=== PATIENT | female | born 1990 | race Caucasian/White ===

== ENCOUNTER 2016-05-22 16:41 | Emergency (ER) | payer OTHER ==
[2016-05-22 16:50] VITALS: TEMP 98; BMI 23.3
--- NOTE | 2016-05-22 17:12 | PDOC ---
History of Present Illness - General Chief Complaint: Pain, Acute Stated Complaint: ABD PAIN, 15 WKS Time Seen by Provider: 05/22/16 17:10 History Source: Patient Exam Limitations: No Limitations - History of Present Illness Initial Comments: 05/22/16 18:24 Chief complaint: Epigastric pain Patient is 25-year-old female who is with her second child who states she's had vomiting since the beginning of the but since 2:30 this morning she's had epigastric pain. Patient is only taking vitamins and has not had this problem previously, no fever. GENERAL/CONSTITUTIONAL: No fever, weakness. dizziness HEAD, EYES, EARS, NOSE AND THROAT: No change in vision. No ear pain or discharge. No sore throat. CARDIOVASCULAR: No chest pain RESPIRATORY: No shortness of breath or cough GASTROINTESTINAL: +pain, nausea, vomiting, no: diarrhea or constipation GENITOURINARY: No dysuria MUSCULOSKELETAL: No neck or back pain SKIN: No rash NEUROLOGIC: No headache, vertigo, loss of consciousness, or loss of sensation. GENERAL: The patient is awake, alert, and fully oriented, in no acute distress. HEAD: Normal with no signs of trauma. EYES: Pupils equal, round and reactive to light, sclera anicteric, conjunctiva clear. ENT: pharynx: no erythema, no exudate, uvula midline NECK: supple CHEST: clear, nontender, rr ABD: soft, + bowel sounds, minimal epigastric tenderness, no Garcia sign EXTREMITIES: Normal range of motion, no edema. NEUROLOGICAL: Normal speech, normal gait. SKIN: Warm, Dry Past History - Past Medical History Allergies/Adverse Reactions: Allergies Allergy/AdvReac Type Severity Reaction Status Date / Time No Known Allergies Allergy Verified 05/22/16 16:50 Other medical history: denies - Psycho/Social/Smoking Cessation Hx Suicidal Ideation: No Smoking History: Never smoked *Physical Exam - Vital Signs Last Vital Signs Temp Pulse Resp BP Pulse Ox 98.0 F 69 18 137/61 99 05/22/16 16:47 05/22/16 16:47 05/22/16 16:47 05/22/16 16:47 05/22/16 16:47 ED Treatment Course - LABORATORY CBC & Chemistry Diagram: 05/22/16 16:58 05/22/16 16:58 Medical Decision Making - Medical Decision Making Patient 15 weeks , who has had vomiting prior, with epigastric pain. Patient has not had this problem before not been to the hospital for this before we'll get basic labs, a limited ultrasound to look at the gallbladder and biliary, and we'll do a limited OB ultrasound and reassess. Patient found to have ketones and +1 glucose in the urine, waiting rest of labs , will hydrate and reassess, *DC/Admit/Observation/Transfer Diagnosis at time of Disposition: Epigastric pain Qualifiers: Weeks of gestation: 15 weeks Qualified Code(s): Z3A.15 - 15 weeks gestation of
[2016-05-22] MEDS ORDERED: RANITIDINE HCL 150 MG TABLET (FP) PO ONE (17:29)
[2016-05-22] MEDS ORDERED: MAG HYDROX/AL HYDROX/SIMETH 30 ML UNIT-DOSE CUP PO ONE (17:29)
[2016-05-22] MEDS ORDERED: MAG HYDROX/AL HYDROX/SIMETH 30 ML UNIT-DOSE CUP ONE (17:58)
[2016-05-22] MEDS ORDERED: RANITIDINE HCL 150 MG TABLET (FP) ONE (17:58)
[2016-05-22 18:10] LABS: BASOPHIL 0.1 % (0-2.0); MCH 31.3 pg (25.7-33.7); MCHC 35.1 g/dl (32.0-36.0); MEAN CELL VOLUME 89.3 fl (80-96); MEAN PLT VOLUME 8.1 fl (7.5-11.1); NEUTROPHILS 93.5 % (42.8-82.8); PLATELET COUNT 195 K/MM3 (134-434); RDW 15.6 % (11.6-15.6); WHITE BLOOD COUNT 13.5 K/mm3 (4.0-10.0)
[2016-05-22 18:11] LABS: URINE APPEARANCE CLEAR; URINE BILIRUBIN NEGATIVE (NEGATIVE); URINE BLOOD NEGATIVE (NEGATIVE); URINE COLOR DKYELLOW; URINE GLUCOSE (UA) 1+ (NEGATIVE); URINE KETONE 2+ (NEGATIVE); URINE LEUK ESTERASE NEGATIVE (NEGATIVE); URINE NITRITE NEGATIVE (NEGATIVE); URINE PROTEIN 2+ (NEGATIVE); URINE UROBILINOGEN NEGATIVE E.U./dl (0.2-1.0)
[2016-05-22 18:15] LABS: URINE BACTERIA RARE /hpf (NONE SEEN); URINE HYALINE CAST 1 /lpf; URINE MUCUS FEW; URINE RBC 1 /hpf (0-3); URINE WBC 3 /hpf (3-5)
[2016-05-22] MEDS ORDERED: SODIUM CHLORIDE 1,000 ML IV STA (18:25)
[2016-05-22 18:33] LABS: ALBUMIN 3.7 g/dl (3.4-5.0); ANION GAP 12 (8-16); BILIRUBIN,TOTAL 0.6 mg/dL (0.2-1.0); CALCIUM 8.7 mg/dL (8.5-10.1); CO2 24 mmol/L (21-32); CREATININE 0.5 mg/dL (0.55-1.02); GLUCOSE,RANDOM 132 mg/dL (74-106); SGOT/AST 12 U/L (15-37); SGPT/ALT 24 U/L (12-78); TOT PROT 7.5 g/dl (6.4-8.2)
[2016-05-22 18:34] LABS: ALK PHOS 60 U/L (45-117)
--- NOTE | 2016-05-22 19:26 | PDOC ---
*Physical Exam - Vital Signs Last Vital Signs Temp Pulse Resp BP Pulse Ox 98.0 F 69 18 137/61 99 05/22/16 16:47 05/22/16 16:47 05/22/16 16:47 05/22/16 16:47 05/22/16 16:47 <Rukhsana Miramontes - Last Filed: 05/22/16 20:38> - Vital Signs Last Vital Signs Temp Pulse Resp BP Pulse Ox 98.0 F 69 18 137/61 99 05/22/16 16:47 05/22/16 16:47 05/22/16 16:47 05/22/16 16:47 05/22/16 16:47 <Cherelle Trevino - Last Filed: 05/22/16 20:50> ED Treatment Course - LABORATORY CBC & Chemistry Diagram: 05/22/16 16:58 05/22/16 16:58 - ADDITIONAL ORDERS Additional order review: Laboratory Results 05/22/16 05/22/16 16:58 16:58 Sodium 138 Potassium 3.3 L Chloride 102 Carbon Dioxide 24 Anion Gap 12 BUN 6 L Creatinine 0.5 L Creat Clearance w eGFR > 60 Random Glucose 132 H Calcium 8.7 Total Bilirubin 0.6 AST 12 L ALT 24 Alkaline Phosphatase 60 Total Protein 7.5 Albumin 3.7 Lipase 112 Urine Color Dkyellow Urine Appearance Clear Urine pH 6.0 Ur Specific [place] 1.030 Urine Protein 2+ H Urine Glucose (UA) 1+ H Urine Ketones 2+ H Urine Blood Negative Urine Nitrite Negative Urine Bilirubin Negative Urine Urobilinogen Negative Ur Leukocyte Esterase Negative Urine RBC 1 Urine WBC 3 Ur Epithelial Cells Rare Urine Bacteria Rare Hyaline Casts 1 Urine Mucus Few 05/22/16 16:58 RBC 4.22 MCV 89.3 MCHC 35.1 RDW 15.6 MPV 8.1 Neutrophils % 93.5 H Lymphocytes % 3.5 L Monocytes % 2.9 L Eosinophils % 0.0 Basophils % 0.1 - RADIOLOGY Radiograph Interpretation: 05/22/16 20:38 EXAM: OB ultrasound was read by Timothy Becerra MD at 20:05 EST REASON FOR EXAM: Upper abdominal pain, FINDINGS: There is a single live intrauterine with estimated gestational age of 16 weeks and 1 day. position at this time is cephalic. There is a posterior/fundal placenta. There is no placenta previa. Amniotic fluid volume is within normal limits. cardiac activity is 142 beats per minute. The cervix is grossly closed. EXAM: Abdominal ultrasound limited was read by Timothy Becerra MD at 20:03 EST REASON FOR EXAM: Upper abdominal pain FINDINGS: Visualized hepatic parenchyma is homogeneous. There are multiple gallstones. Gallbladder wall is within normal limits in thickness. Common bile duct diameter within normal limits. Visualized pancreas is unremarkable. There is no hydronephrosis on the right. - Medications Given in the ED: ED Medications Discontinued Medications Generic Name Dose Route Start Last Admin Trade Name Freq PRN Reason Stop Dose Admin Al Hydroxide/Mg Hydroxide 30 ml 05/22/16 17:29 05/22/16 20:09 Mylanta Oral Suspension - PO 05/22/16 17:30 30 ml ONCE ONE Administration Sodium Chloride 1,000 mls @ 1,000 mls/hr 05/22/16 18:25 05/22/16 20:09 Normal Saline - IV 05/22/16 19:24 1,000 mls/hr ASDIR STA Administration Ranitidine HCl 300 mg 05/22/16 17:29 05/22/16 20:09 Zantac - PO 05/22/16 17:30 300 mg ONCE ONE Administration <Rukhsana Miramontes - Last Filed: 05/22/16 20:38> - LABORATORY CBC & Chemistry Diagram: 05/22/16 16:58 05/22/16 16:58 - ADDITIONAL ORDERS Additional order review: Laboratory Results 05/22/16 05/22/16 16:58 16:58 Sodium 138 Potassium 3.3 L Chloride 102 Carbon Dioxide 24 Anion Gap 12 BUN 6 L Creatinine 0.5 L Creat Clearance w eGFR > 60 Random Glucose 132 H Calcium 8.7 Total Bilirubin 0.6 AST 12 L ALT 24 Alkaline Phosphatase 60 Total Protein 7.5 Albumin 3.7 Lipase 112 Urine Color Dkyellow Urine Appearance Clear Urine pH 6.0 Ur Specific [place] 1.030 Urine Protein 2+ H Urine Glucose (UA) 1+ H Urine Ketones 2+ H Urine Blood Negative Urine Nitrite Negative Urine Bilirubin Negative Urine Urobilinogen Negative Ur Leukocyte Esterase Negative Urine RBC 1 Urine WBC 3 Ur Epithelial Cells Rare Urine Bacteria Rare Hyaline Casts 1 Urine Mucus Few 05/22/16 16:58 RBC 4.22 MCV 89.3 MCHC 35.1 RDW 15.6 MPV 8.1 Neutrophils % 93.5 H Lymphocytes % 3.5 L Monocytes % 2.9 L Eosinophils % 0.0 Basophils % 0.1 <CallahanKm Mcgarry - Last Filed: 05/22/16 20:50> Medical Decision Making - Medical Decision Making 05/22/16 19:26 Endorsed to me pending d/w with Dr. Valladares 05/22/16 20:31 Case was d/w Dr. Valladares. Patient can follow up in the clinic. Epigastic pain is improved and is tolerating po. US Abdomen (+) gallstones but normal GB, labs normal US fetus with nl HR will discharge with inst to follow up for routine appointment I discussed the physical exam findings, ancillary test results and final diagnoses with the patient. I answered all of the patient's questions. The patient was satisfied with the care received and felt comfortable with the discharge plan and treatment plan. The Patient agrees to follow up with the primary care physician within 24-72 hours. <Cherelle Trevino - Last Filed: 05/22/16 20:50> *DC/Admit/Observation/Transfer <Rukhsana Miramontes - Last Filed: 05/22/16 20:38> <Cherelle Trevino - Last Filed: 05/22/16 20:50> Diagnosis at time of Disposition: Epigastric abdominal pain Qualifiers: Weeks of gestation: 15 weeks Qualified Code(s): Z3A.15 - 15 weeks gestation of - Discharge Dispostion Disposition: HOME Condition at time of disposition: Stable - Referrals Referrals: Kiera Deng MD [Primary Care Provider] - - Patient Instructions Printed Discharge Instructions: DI for Heartburn Additional Instructions: Your Discharge Instructions: You must call primary care physician within 24 hours to arrange follow-up. Return to the Emergency Department with any new, persistent or worsening symptoms, for fever, chills, SOB, dizziness or any other concerning changes that may occur. please follow-up with you at your scheduled appointment to discuss your lab work. - Post Discharge Activity
[2016-05-22 21:17] VITALS: BP 123/75; PULSE 72
== END 2016-05-22 21:24 | disposition home or self-care (01) ==
LOC: JER 16:41
PROC: 3E0337Z Introduction of Electrolytic and Water Balance Substance into Peripheral Vein, Percutaneous Approach (ICD-10-PCS; principal; 2016-05-22)
DX: O99.612 Diseases of the digestive system complicating pregnancy, second trimester (principal); K80.80 Other cholelithiasis without obstruction; Z3A.16 16 weeks gestation of pregnancy
CPT/HCPCS: 36415; 76705-TC; 76801-TC; 80053; 81003; 81015; 83690; 85025; 96360; 99282-25

== ENCOUNTER 2016-10-09 10:00 | Inpatient (IN) | payer OTHER ==
[2016-10-09 11:32] LABS: SGOT/AST 17 U/L (15-37); SGPT/ALT 21 U/L (12-78); URIC ACID 4.4 mg/dL (2.6-7.2)
[2016-10-09 11:47] LABS: BASOPHIL 0.2 % (0-2.0); MCH 32.6 pg (25.7-33.7); MCHC 34.7 g/dl (32.0-36.0); MEAN CELL VOLUME 94.1 fl (80-96); MEAN PLT VOLUME 9.6 fl (7.5-11.1); NEUTROPHILS 83.1 % (42.8-82.8); PLATELET COUNT 140 K/MM3 (134-434); WHITE BLOOD COUNT 8.9 K/mm3 (4.0-10.0)
[2016-10-09 11:59] LABS: HIV 1 & 2 AB NEGATIVE; HIV 1 AGp24 NEGATIVE
[2016-10-09] MEDS ORDERED: MAGNESIUM 4GM/H20 - 100 ML IVPB ONE (13:00)
[2016-10-09] MEDS: ELECTROLYTE-148 SOLN 1,000 ML IV SCH ×2 (13:30→20:30)
[2016-10-09] MEDS: MAGNESIUM SULFATE 20GM/500ML - 500 ML IVPB SCH ×2 (13:30→14:00)
[2016-10-09 13:50] VITALS: BMI 38.0
[2016-10-09] MEDS ORDERED: CITRIC ACID/SODIUM CITRATE 30 ML UNIT-DOSE CUP PO ONE (14:00)
--- NOTE | 2016-10-09 14:12 | HP ---
Past Medical History - Admission Chief Complaint: Hypertension History of Present Illness: 25 yo @ 35.5 weeks gestation, EDC 11/08/16, admitted for repeat due to Pre-eclampsia. Patient was seen in clinic where 24 hr urine protein was found to be 4000. Repeat 24hr urine protein was 5000. Blood pressure remains elevated. She denies any headache nor epigastric pain. She received one course of steroid therapy for lung maturity. Last meal was at noon. History Source: Patient Limitations to Obtaining History: No Limitations - Past Medical History ...: 3 ...Para: 1 ...Term: 1 ...: 0 ...Spon : 0 ...Induced : 0 ...LMP: 01/29/16 ... Weeks Gestation by Dates: 36.3 ...EDC by Dates: 11/04/16 ...EDC by Sono: 11/08/16 - Past Surgical History Past Surgical History: Yes: Hx Myomectomy: No Hx Transabdominal Cerclage: No - Smoking History Smoking history: Never smoked Have you smoked in the past 12 months: No If you are a former smoker, when did you quit?: n - Alcohol/Substance Use Hx Alcohol Use: No - Social History Usual Living Arrangement: Yes: With Spouse History of Recent Travel: No Home Medications - Allergies Allergies/Adverse Reactions: Allergies Allergy/AdvReac Type Severity Reaction Status Date / Time No Known Allergies Allergy Verified 10/07/16 18:31 - Home Medications Home Medications: Ambulatory Orders Vit No.130/Iron/FA [ Vitamins] 1 each PO DAILY 10/07/16 Family Disease History - Family Disease History Family History: Unremarkable Review of Systems - Review of Systems Constitutional: reports: No Symptoms Eyes: reports: No Symptoms HENT: reports: No Symptoms Neck: reports: No Symptoms Respiratory: reports: No Symptoms Gastrointestinal: reports: No Symptoms Genitourinary: reports: No Symptoms Breasts: reports: No Symptoms Reported Musculoskeletal: reports: No Symptoms Integumentary: reports: No Symptoms Neurological: reports: No Symptoms Endocrine: reports: No Symptoms Hematology/Lymphatic: reports: No Symptoms Psychiatric: reports: No Symptoms Pain Intensity: 0 Physical Exam - Maternity Vital Signs: Vital Signs Temperature 98.1 F 10/09/16 13:32 Pulse Rate 62 10/09/16 13:32 Respiratory Rate 20 07/23/17 13:32 Blood Pressure 157/90 10/09/16 13:32 O2 Sat by Pulse Oximetry (%) Constitutional: Yes: Well Nourished HENT: Yes: Atraumatic Neck: Yes: Supple, Trachea Midline Cardiovascular: Yes: Regular Rate and Rhythm Lungs: Clear to auscultation - Abdominal Exam/OB Number of Fetuses: Single Presentation: Vertex - Vaginal Exam/OB Vaginal Bleediing: No Presentation: Vertex/Position Station: -3 - Physical Exam Deep Tendon Reflex Grade: Normal +2 ...Motor Strength: WNL Psychiatric: Yes: Alert, Oriented - Labs Lab Results: CBC, BMP 10/09/16 11:44 Assessment/Plan IUP @ 35 weeks Pre Eclampsia Admit to L&D Magnesium sulfate therapy Jones insert Pre op for repeat
[2016-10-09 14:25] LABS: INR 0.86 (0.82-1.09); PROTHROMBIN TIME (PATIENT) 9.4 SEC (9.98-11.88)
[2016-10-09 14:28] LABS: ACTIVATED PTT 23.6 SECONDS (26.9-34.4)
[2016-10-09 15:32] LABS: ALBUMIN 2.6 g/dl (3.4-5.0); ANION GAP 10 (8-16); BILIRUBIN,TOTAL 0.3 mg/dL (0.2-1.0); CALCIUM 8.4 mg/dL (8.5-10.1); CO2 23 mmol/L (21-32); CREATININE 0.5 mg/dL (0.55-1.02); GLUCOSE,RANDOM 99 mg/dL (74-106); TOT PROT 5.8 g/dl (6.4-8.2)
[2016-10-09 15:33] LABS: ALK PHOS 121 U/L (45-117)
[2016-10-09] MEDS ORDERED: IBUPROFEN 800 MG/8 ML IJ IVPB PRN (20:41)
[2016-10-09] MEDS ORDERED: ONDANSETRON 4 MG/2 ML VIAL IVPUSH PRN (20:42)
[2016-10-09] MEDS ORDERED: METHYLERGONOVINE MALEATE 0.2 MG/1 ML AMP IM PRN (22:19)
--- NOTE | 2016-10-09 22:25 | OP ---
Operative Note - Note: Operative Date: 10/09/16 Pre-Operative Diagnosis: Severe Pre Eclampsia / Previous Operation: Repeat Low Transverse Findings: Baby girl in ROT position Post-Operative Diagnosis: Same as Pre-op Surgeon: Kendra Drew Interventionist: Andrew Aldridge Anesthesia: Spinal Specimens Removed: Placenta Estimated Blood Loss (mls): 600 Operative Report Dictated: Yes
[2016-10-10] MEDS: OXYTOCIN 20 UNITS in 0.9% NS 1,000 ML IV SCH ×2 (06:45→22:42)
[2016-10-10 08:14] LABS: BASOPHIL 0.2 % (0-2.0); EOSINOPHIL 0.1 % (0-4.5); MEAN CELL VOLUME 94.2 fl (80-96); MEAN PLT VOLUME 8.9 fl (7.5-11.1); NEUTROPHILS 81.1 % (42.8-82.8); PLATELET COUNT 140 K/MM3 (134-434); RDW 13.7 % (11.6-15.6); WHITE BLOOD COUNT 9.5 K/mm3 (4.0-10.0)
--- NOTE | 2016-10-10 08:26 | PN ---
Progress Note (short form) - Note Progress Note: Post op day#1.S/P C Section under spinal anesthesia with duramorph uneventful.Patient stable and does not c/o.No any anesthesia related proble.Patient DC from the anesthesia care.
--- NOTE | 2016-10-10 09:25 | PN ---
Post Progress Note - Subjective Subjective: 25 yo Para 2, with Pre Eclampsia status post repeat , seen and evaluated. She denies any headache, blurry vision nor epigastric pain. Reflexes are intact. Blood pressures are normalized. Post Day: 1 Type of Delivery: Repeat C/S Vital Signs: Vital Signs Temperature 98.8 F 10/10/16 03:00 Pulse Rate 75 10/10/16 09:00 Respiratory Rate 18 10/10/16 09:00 Blood Pressure 136/87 10/10/16 09:00 O2 Sat by Pulse Oximetry (%) 98 10/10/16 08:41 Uterus: Yes: Fundus Firm Incision: Yes: Dressing dry and intact Abdomen/GI: Yes: Abdomen soft Lochia: Yes: Rubra Lochia, amount: Small Extremities: Yes: Calves non-tender Perineum: Yes: Intact Activity: Other (She's lying in bed) - Labs Labs: CBC WBC 9.5 K/mm3 (4.0-10.0) 10/10/16 06:00 RBC 3.65 M/mm3 (3.60-5.2) 10/10/16 06:00 Hgb 12.0 GM/dL (10.7-15.3) 10/10/16 06:00 Hct 34.4 % (32.4-45.2) 10/10/16 06:00 MCV 94.2 fl (80-96) 10/10/16 06:00 MCH 33.0 pg (25.7-33.7) 10/10/16 06:00 MCHC 35.0 g/dl (32.0-36.0) 10/10/16 06:00 RDW 13.7 % (11.6-15.6) 10/10/16 06:00 Plt Count 140 K/MM3 (134-434) 10/10/16 06:00 MPV 8.9 fl (7.5-11.1) 10/10/16 06:00 Neutrophils % 81.1 % (42.8-82.8) 10/10/16 06:00 Lymphocytes % 11.6 % (8-40) 10/10/16 06:00 Monocytes % 7.0 % (3.8-10.2) 10/10/16 06:00 Eosinophils % 0.1 % (0-4.5) D 10/10/16 06:00 Basophils % 0.2 % (0-2.0) 10/10/16 06:00 Retic Count 1.84 % (0.5-1.5) H 10/09/16 10:55 Problem List - Problems (1) Status post repeat low transverse section Code(s): Z98.891 - HISTORY OF UTERINE SCAR FROM PREVIOUS SURGERY (2) Pre-eclampsia affecting , antepartum Code(s): O14.90 - UNSPECIFIED PRE-ECLAMPSIA, UNSPECIFIED TRIMESTER Assessment/Plan Status post repeat Sever Pre Eclampsia Continue Magnesium sulfate Keep Jones catheter Clear liquid diet F/U Magnesium level
[2016-10-10] MEDS: MAGNESIUM SULFATE 20GM/500ML - 500 ML IVPB SCH (13:00)
[2016-10-10] MEDS ORDERED: DEXTROSE 5%-LACTATED RINGERS 1,000 ML IV SCH (14:15)
[2016-10-10] MEDS: LABETALOL HCL 200 MG TABLET (FP) PO SCH (21:10)
[2016-10-10] MEDS: DEXTROSE 5%-LACTATED RINGERS 1,000 ML IV SCH (21:10)
[2016-10-10] MEDS ORDERED: BISACODYL 10 MG SUPP.RECT RC PRN (22:19)
[2016-10-10] MEDS: ELECTROLYTE-148 SOLN 1,000 ML IV SCH (22:42)
[2016-10-10] MEDS: ACETAMINOPHEN 325 MG TABLET (FP) PO PRN (23:08)
[2016-10-10] MEDS: SIMETHICONE 80 MG TAB.CHEW (FP) PO PRN (23:08)
[2016-10-10] MEDS: oxyCODONE HCL 5 MG TABLET PO PRN (23:09)
[2016-10-11] MEDS: DEXTROSE 5%-LACTATED RINGERS 1,000 ML IV SCH (00:02)
[2016-10-11] MEDS: SIMETHICONE 80 MG TAB.CHEW (FP) PO PRN ×4 (06:10→21:15)
[2016-10-11] MEDS: oxyCODONE HCL 5 MG TABLET PO PRN ×4 (06:10→21:15)
[2016-10-11] MEDS: ACETAMINOPHEN 325 MG TABLET (FP) PO PRN ×4 (06:11→21:15)
--- NOTE | 2016-10-11 07:42 | PN ---
Post Progress Note - Subjective Subjective: pod#2 s/p cs for pre eclampsia, s/p mgso4 Post Day: 2 Type of Delivery: Repeat C/S Vital Signs: Vital Signs Temperature 98.1 F 10/11/16 06:00 Pulse Rate 68 10/11/16 06:00 Respiratory Rate 18 10/11/16 06:00 Blood Pressure 177/95 10/11/16 06:00 O2 Sat by Pulse Oximetry (%) 98 10/10/16 08:41 Breast Exam: Yes: Soft Uterus: Yes: Fundus Firm Incision: Yes: Dressing dry and intact Abdomen/GI: Yes: Abdomen soft Lochia: Yes: Rubra Lochia, amount: Small Extremities: Yes: Calves non-tender Perineum: Yes: Intact Activity: Ambulating - Labs Labs: CBC WBC 9.5 K/mm3 (4.0-10.0) 10/10/16 06:00 RBC 3.65 M/mm3 (3.60-5.2) 10/10/16 06:00 Hgb 12.0 GM/dL (10.7-15.3) 10/10/16 06:00 Hct 34.4 % (32.4-45.2) 10/10/16 06:00 MCV 94.2 fl (80-96) 10/10/16 06:00 MCH 33.0 pg (25.7-33.7) 10/10/16 06:00 MCHC 35.0 g/dl (32.0-36.0) 10/10/16 06:00 RDW 13.7 % (11.6-15.6) 10/10/16 06:00 Plt Count 140 K/MM3 (134-434) 10/10/16 06:00 MPV 8.9 fl (7.5-11.1) 10/10/16 06:00 Neutrophils % 81.1 % (42.8-82.8) 10/10/16 06:00 Lymphocytes % 11.6 % (8-40) 10/10/16 06:00 Monocytes % 7.0 % (3.8-10.2) 10/10/16 06:00 Eosinophils % 0.1 % (0-4.5) D 10/10/16 06:00 Basophils % 0.2 % (0-2.0) 10/10/16 06:00 Retic Count 1.84 % (0.5-1.5) H 10/09/16 10:55 Haptoglobin 68 mg/dL (34-200) 10/09/16 10:55 Assessment/Plan as above watch labs will continue labetaolol consider hospitalist consult
--- NOTE | 2016-10-11 07:43 | PN ---
Post Progress Note Type of Delivery: Repeat C/S Vital Signs: Vital Signs Temperature 98.1 F 10/11/16 06:00 Pulse Rate 68 10/11/16 06:00 Respiratory Rate 18 10/11/16 06:00 Blood Pressure 177/95 10/11/16 06:00 O2 Sat by Pulse Oximetry (%) 98 10/10/16 08:41 - Labs Labs: CBC WBC 9.5 K/mm3 (4.0-10.0) 10/10/16 06:00 RBC 3.65 M/mm3 (3.60-5.2) 10/10/16 06:00 Hgb 12.0 GM/dL (10.7-15.3) 10/10/16 06:00 Hct 34.4 % (32.4-45.2) 10/10/16 06:00 MCV 94.2 fl (80-96) 10/10/16 06:00 MCH 33.0 pg (25.7-33.7) 10/10/16 06:00 MCHC 35.0 g/dl (32.0-36.0) 10/10/16 06:00 RDW 13.7 % (11.6-15.6) 10/10/16 06:00 Plt Count 140 K/MM3 (134-434) 10/10/16 06:00 MPV 8.9 fl (7.5-11.1) 10/10/16 06:00 Neutrophils % 81.1 % (42.8-82.8) 10/10/16 06:00 Lymphocytes % 11.6 % (8-40) 10/10/16 06:00 Monocytes % 7.0 % (3.8-10.2) 10/10/16 06:00 Eosinophils % 0.1 % (0-4.5) D 10/10/16 06:00 Basophils % 0.2 % (0-2.0) 10/10/16 06:00 Retic Count 1.84 % (0.5-1.5) H 10/09/16 10:55 Haptoglobin 68 mg/dL (34-200) 10/09/16 10:55
[2016-10-11 07:52] LABS: MCH 33.4 pg (25.7-33.7); MEAN CELL VOLUME 95.4 fl (80-96); MEAN PLT VOLUME 8.9 fl (7.5-11.1); PLATELET COUNT 133 K/MM3 (134-434); WHITE BLOOD COUNT 6.8 K/mm3 (4.0-10.0)
[2016-10-11 08:00] LABS: SGOT/AST 23 U/L (15-37); SGPT/ALT 22 U/L (12-78); URIC ACID 3.7 mg/dL (2.6-7.2)
--- NOTE | 2016-10-11 08:58 | CONSULT ---
Consult Consult Specialty:: Medicine Referred by:: Blaine Reason for Consultation:: Post HTN - History of Present Illness Chief Complaint: Elevated BP History of Present Illness: This is a 25 year old female , POD #2 from pre eclampsia. She has never had an issue with blood pressure in the past, nor other medical problems. She has completed 24 hours of magnesium sulfate. Started on labetalol 200mg BID. Jones is removed and pt has had successful voids and is ambulating. I have been called to continue management of BP. Currently patient is ambulating, does not appear fluid overloaded, she denies sob, chest pain, visual disturbances, or head ache. - History Source History Provided By: Patient, Medical Record Limitations to Obtaining History: No Limitations - Past Surgical History Past Surgical History: Yes: - Alcohol/Substance Use Hx Alcohol Use: No - Smoking History Smoking history: Never smoked Have you smoked in the past 12 months: No If you are a former smoker, when did you quit?: n - Social History History of Recent Travel: No Home Medications - Allergies Allergies/Adverse Reactions: Allergies Allergy/AdvReac Type Severity Reaction Status Date / Time No Known Allergies Allergy Verified 10/07/16 18:31 - Home Medications Home Medications: Ambulatory Orders Vit No.130/Iron/FA [ Vitamins] 1 each PO DAILY 10/07/16 Review of Systems - Review of Systems Constitutional: reports: Lethargy Eyes: reports: No Symptoms HENT: reports: No Symptoms Neck: reports: No Symptoms Cardiovascular: reports: No Symptoms Respiratory: reports: No Symptoms Gastrointestinal: reports: No Symptoms Genitourinary: reports: Other (lochia) Musculoskeletal: reports: No Symptoms Integumentary: reports: Incision (lower abdomen) Neurological: reports: No Symptoms Endocrine: reports: No Symptoms Hematology/Lymphatic: reports: No Symptoms Psychiatric: reports: No Symptoms Physical Exam Vital Signs: Vital Signs Temperature 98.7 F 10/11/16 07:20 Pulse Rate 69 10/11/16 07:20 Respiratory Rate 18 10/11/16 07:20 Blood Pressure 149/95 10/11/16 07:20 O2 Sat by Pulse Oximetry (%) 98 10/10/16 08:41 Constitutional: Yes: No Distress, Calm Eyes: Yes: Conjunctiva Clear HENT: Yes: Atraumatic Neck: Yes: Supple Cardiovascular: Yes: Regular Rate and Rhythm, S1, S2 Respiratory: Yes: Regular, CTA Bilaterally Gastrointestinal: Yes: Normal Bowel Sounds, Tenderness (lower abd at incision site) Renal/: Yes: Other (lochia present) Extremities: Yes: WNL Edema: Yes Edema: LLE: Trace, RLE: Trace Integumentary: Yes: Incision Wound/Incision: Yes: Clean/Dry, Well Approximated, Jones Intact Neurological: Yes: Alert, Oriented, Cran Nerves II-XII Intact Psychiatric: Yes: Alert, Oriented Labs: CBC, BMP 10/11/16 06:00 Problem List - Problems (1) Pre-eclampsia affecting , antepartum Code(s): O14.90 - UNSPECIFIED PRE-ECLAMPSIA, UNSPECIFIED TRIMESTER (2) Status post repeat low transverse section Code(s): Z98.891 - HISTORY OF UTERINE SCAR FROM PREVIOUS SURGERY (3) Epigastric abdominal pain Code(s): R10.13 - EPIGASTRIC PAIN (4) Code(s): Z33.1 - STATE, INCIDENTAL Qualifiers: Weeks of gestation: 15 weeks Qualified Code(s): Z3A.15 - 15 weeks gestation of (5) hypertension Code(s): O16.5 - UNSPECIFIED MATERNAL HYPERTENSION, COMP THE PUERPERIUM Assessment/Plan Assessment: 25 year old female with post HTN Plan: 1. Post HTN - Likely due to pre eclampsia - Repeat UA - Check CMP, CBC - Change labetalol to 200mg q6hr prn for BP >140/90 - Monitor bp q6hr - Will follow Thank you for this consult JONATHON Friedman Visit type - Emergency Visit Emergency Visit: No - New Patient This patient is new to me today: Yes Date on this admission: 10/11/16 - Critical Care Critical Care patient: No
[2016-10-11 09:00] LABS: ANION GAP 6 (8-16); CALCIUM 7.6 mg/dL (8.5-10.1); CO2 28 mmol/L (21-32); CREATININE 0.4 mg/dL (0.55-1.02); GLUCOSE,RANDOM 89 mg/dL (74-106)
[2016-10-11] MEDS: LABETALOL HCL 200 MG TABLET (FP) PO SCH (09:02)
--- NOTE | 2016-10-11 09:10 | OP ---
DATE OF OPERATION: 10/09/2016 PREOPERATIVE DIAGNOSIS: Intrauterine at 35 weeks with severe preeclampsia. POSTOPERATIVE DIAGNOSIS: Intrauterine at 35 weeks with severe preeclampsia. PROCEDURE: Repeat low transverse section. SURGEON: Kendra Drew MD BUSINESS CONTINUITY COORDINATOR: BENOIT Guillen ANESTHESIA: Spinal. COMPLICATIONS: None. ESTIMATED BLOOD LOSS: 600 mL DESCRIPTION OF PROCEDURE: Patient was taken to the operating room where spinal anesthesia was administered. Patient was then prepped and draped in proper sterile fashion. A Pfannenstiel skin incision was made and carried down to the underlying layer of fascia. The fascia was incised in the midline and extended laterally. The superior aspect of the fascial incision was then grasped with a Raz clamp, elevated, and the rectus muscle dissected out bluntly. Attention was then turned to the inferior aspect of the fascial incision, which in a similar fashion, was then grasped with a Raz clamp, elevated, and the rectus muscle dissected out bluntly. The rectus muscle was then in the midline. The peritoneum identified and entered sharply with the Metzenbaum scissors. Then, this incision was extended superiorly and inferiorly with good visualization of the bladder. Then, the vesicouterine peritoneum was then grasped with a pickup and entered sharply with the Metzenbaum scissors. This incision was extended laterally, and a bladder flap created digitally. The lower uterine segment was then incised using a 10-blade , and the fetus was then delivered atraumatically. Nose and mouth were suctioned, and the cord clamped and cut. The infant was handed to the waiting casting operator. The placenta was then removed manually. The uterus exteriorized and cleared of all clots and debris. The uterine incision was then repaired using 0 Biosyn in a running locked fashion. A second layer of the same suture was used as a means to provide excellent hemostasis. The uterus was then returned to the abdomen. The peritoneum was closed using 2-0 Biosyn. The fascia was reapproximated using 0 Vicryl, and the skin was closed with ольга. Patient tolerated procedure well. Patient was then taken to PACU in stable condition. PATHOLOGY: Placenta. Christ BYRD/[id number] [facility]
[2016-10-11] MEDS ORDERED: DIPHTH,PERTUSS(ACELL),TET 0.5 ML DISP.SYRIN IM ONE (10:00)
[2016-10-11 10:59] LABS: URINE APPEARANCE CLEAR; URINE BILIRUBIN NEGATIVE (NEGATIVE); URINE BLOOD 3+ (NEGATIVE); URINE COLOR LTYELLOW; URINE GLUCOSE (UA) NEGATIVE (NEGATIVE); URINE KETONE NEGATIVE (NEGATIVE); URINE LEUK ESTERASE NEGATIVE (NEGATIVE); URINE NITRITE NEGATIVE (NEGATIVE); URINE UROBILINOGEN NEGATIVE mg/dL (0.2-1.0)
[2016-10-11 11:16] LABS: URINE PROTEIN 2+ (NEGATIVE)
[2016-10-11 12:24] LABS: URINE BACTERIA RARE /hpf (NONE SEEN); URINE MUCUS RARE; URINE RBC 308 /hpf (0-3)
--- NOTE | 2016-10-11 13:41 | PATH ---
Surgical Pathology Report Patient Name: HAIM WINN Med. Rec. #: [id number] /Age/Gender: 1990 (Age: 25) / F Account: [id number] Location: [facility] OBS/ORDER ANALYST Taken: 10/09/2016 Received: 10/10/2016 Reported: 10/11/2016 Physicians: Kendra Drew M.D. Specimen(s) Received PLACENTA Clinical History Preeclampsia, c/section 2007 Final Diagnosis PLACENTA, DELIVERY: FOCALLY DISRUPTED, SMALL (>400 GM), THIRD TRIMESTER PLACENTA WITH MILD PREVILLOUS, PERIVILLOUS, AND PRECHORIONIC FIBRIN DEPOSITION, FOCAL CALCIFICATIONS, THREE VESSEL UMBILICAL CORD, AND UNREMARKABLE PLACENTAL MEMBRANES. Electronically Signed Scott Vizcarra M.D. Gross Description The specimen is received fresh, labeled "placenta" and is a 360 gram, 14 x 12.5 x 3 cm placenta with attached umbilical cord a small portion of membranes. The attached membranes are barajas, focally opaque and insert marginally. The umbilical cord measures 51 cm in length and averages 0.8 cm in diameter. The cord inserts eccentrically, 3.0 cm to the nearest margin. No true knots or strictures identified. Cut surface of the umbilical cord reveals 3 vessels. The surface is rodas-blue with fibrin deposition and appropriate caliber vessels. The maternal surface is red-brown with focal defects. Sectioning reveals red-brown, spongy parenchyma. No focal lesions are identified. Cut To Length Operator sections are submitted in three cassettes as follows: 1- membrane rolls and umbilical cord; 2-3- full thickness sections of placenta. AF/10/10/2016 final/10/10/2016
[2016-10-11] MEDS: LABETALOL HCL 200 MG TABLET (FP) PO PRN ×2 (15:02→21:15)
[2016-10-12] MEDS: SIMETHICONE 80 MG TAB.CHEW (FP) PO PRN ×3 (03:10→15:23)
[2016-10-12] MEDS: LABETALOL HCL 200 MG TABLET (FP) PO PRN ×4 (03:10→21:13)
[2016-10-12] MEDS: ACETAMINOPHEN 325 MG TABLET (FP) PO PRN ×4 (03:10→21:12)
[2016-10-12] MEDS: oxyCODONE HCL 5 MG TABLET PO PRN ×4 (03:10→21:13)
[2016-10-12 07:36] LABS: BASOPHIL 0.1 % (0-2.0); EOSINOPHIL 0.5 % (0-4.5); MCH 33.3 pg (25.7-33.7); MCHC 34.8 g/dl (32.0-36.0); MEAN CELL VOLUME 95.6 fl (80-96); MEAN PLT VOLUME 8.4 fl (7.5-11.1); NEUTROPHILS 78.1 % (42.8-82.8); PLATELET COUNT 154 K/MM3 (134-434); RDW 13.9 % (11.6-15.6); WHITE BLOOD COUNT 7.5 K/mm3 (4.0-10.0)
[2016-10-12 07:56] LABS: ALBUMIN 2.5 g/dl (3.4-5.0); ANION GAP 8 (8-16); CALCIUM 8.2 mg/dL (8.5-10.1); CO2 27 mmol/L (21-32); GLUCOSE,RANDOM 78 mg/dL (74-106)
[2016-10-12 08:00] LABS: ALK PHOS 104 U/L (45-117); BILIRUBIN,TOTAL 0.3 mg/dL (0.2-1.0); CREATININE 0.4 mg/dL (0.55-1.02); SGOT/AST 27 U/L (15-37); SGPT/ALT 26 U/L (12-78); TOT PROT 5.7 g/dl (6.4-8.2)
--- NOTE | 2016-10-12 10:46 | PN ---
Progress Note (short form) - Note Progress Note: no headache, no blurred vision. pod 3, pih CBC, BMP 10/12/16 06:10 10/12/16 06:10 Last Vital Signs Temp Pulse Resp BP Pulse Ox 98.3 F 74 18 154/96 98 10/12/16 09:00 10/12/16 09:00 10/12/16 09:00 10/12/16 09:00 10/10/16 08:41 abdomen soft, no distension, no cva, no RUQ tensderness no calf tenderness, DTR normal trace edema lochia mild plan monitor bp, cont, Labatalol medical follow up
--- NOTE | 2016-10-12 13:28 | PN ---
Physical Exam: SUBJECTIVE: Patient seen and examined she is oob to chair, she has no complaints and is feeling better today. OBJECTIVE: Vital Signs Period Temp Pulse Resp BP Sys/Boykin Pulse Ox Last 24 Hr 97.7 F-98.3 F 67-81 18-18 143-156/89-96 PE Neuro: alert, awake, cn 2-12intact Pulm: CTAB CV: s1 s2 rrr no mrg Abd: lower abd transverse incision with ольга cdi : mild lochia Ext: no le edema, calf tenderness Laboratory Results - last 24 hr 10/11/16 10/11/16 10/12/16 06:00 10:15 06:10 WBC 7.5 RBC 3.32 L Hgb 11.0 Hct 31.7 L MCV 95.6 MCH 33.3 MCHC 34.8 RDW 13.9 Plt Count 154 MPV 8.4 Neutrophils % 78.1 Lymphocytes % 15.0 D Monocytes % 6.3 Eosinophils % 0.5 D Basophils % 0.1 Haptoglobin 94 Sodium Potassium Chloride Carbon Dioxide Anion Gap BUN Creatinine Creat Clearance w eGFR Random Glucose Calcium Total Bilirubin AST ALT Alkaline Phosphatase Total Protein Albumin Urine Color Ltyellow Urine Appearance Clear Urine pH 7.0 Ur Specific [place] 1.020 Urine Protein 2+ H Urine Glucose (UA) Negative Urine Ketones Negative Urine Blood 3+ H Urine Nitrite Negative Urine Bilirubin Negative Urine Urobilinogen Negative Ur Leukocyte Esterase Negative Urine RBC 308 Urine WBC None Ur Epithelial Cells Rare Urine Bacteria Rare Urine Mucus Rare 10/12/16 06:10 WBC RBC Hgb Hct MCV MCH MCHC RDW Plt Count MPV Neutrophils % Lymphocytes % Monocytes % Eosinophils % Basophils % Haptoglobin Sodium 141 Potassium 3.9 Chloride 106 Carbon Dioxide 27 Anion Gap 8 BUN 5 L D Creatinine 0.4 L Creat Clearance w eGFR > 60 Random Glucose 78 Calcium 8.2 L Total Bilirubin 0.3 AST 27 ALT 26 Alkaline Phosphatase 104 Total Protein 5.7 L Albumin 2.5 L Urine Color Urine Appearance Urine pH Ur Specific [place] Urine Protein Urine Glucose (UA) Urine Ketones Urine Blood Urine Nitrite Urine Bilirubin Urine Urobilinogen Ur Leukocyte Esterase Urine RBC Urine WBC Ur Epithelial Cells Urine Bacteria Urine Mucus Active Medications Generic Name Dose Route Start Last Admin Trade Name Freq PRN Reason Stop Dose Admin Acetaminophen 650 mg 10/10/16 09:27 10/12/16 09:15 Tylenol - PO 650 mg Q4H PRN Administration FEVER OR PAIN Bisacodyl 10 mg 10/10/16 22:19 Dulcolax Suppository - RC PRN PRN CONSTIPATION Labetalol HCl 300 mg 10/12/16 11:06 Normodyne - PO Q6H PRN HYPERTENSION Methylergonovine Maleate 0.2 mg 10/09/16 22:19 Methergine Injection - IM Q4H PRN Excessive Bleeding (L&D) Oxycodone HCl 5 mg 10/09/16 22:19 10/12/16 09:14 Roxicodone - PO 5 mg Q4H PRN Administration PAIN LEVEL 1-5 Simethicone 80 mg 10/09/16 22:19 10/12/16 09:14 Mylicon - PO 80 mg Q4H PRN Administration GAS Assessment: 25 year old female with post HTN Plan: 1. Post HTN - Likely due to pre eclampsia - UA with +2 proteinuria - LFT's, plts stable - Increase labetalol to 300mg q6hr prn for BP >140/90 - Monitor bp q6hr - d/w RN will need to make PCP appt with pt at clinic to follow BP for weeks ahead Problem List - Problems (1) Pre-eclampsia affecting , antepartum Code(s): O14.90 - UNSPECIFIED PRE-ECLAMPSIA, UNSPECIFIED TRIMESTER (2) Status post repeat low transverse section Code(s): Z98.891 - HISTORY OF UTERINE SCAR FROM PREVIOUS SURGERY (3) Epigastric abdominal pain Code(s): R10.13 - EPIGASTRIC PAIN (4) Code(s): Z33.1 - STATE, INCIDENTAL Qualifiers: Weeks of gestation: 15 weeks Qualified Code(s): Z3A.15 - 15 weeks gestation of (5) hypertension Code(s): O16.5 - UNSPECIFIED MATERNAL HYPERTENSION, COMP THE PUERPERIUM Visit type - Emergency Visit Emergency Visit: Yes ED Registration Date: 10/09/16 Care time: The patient presented to the Emergency Department on the above date and was hospitalized for further evaluation of their emergent condition. - New Patient This patient is new to me today: No - Critical Care Critical Care patient: No
[2016-10-13] MEDS: LABETALOL HCL 200 MG TABLET (FP) PO PRN (03:03)
--- NOTE | 2016-10-13 09:29 | PN ---
Post Progress Note - Subjective Subjective: 25 yo Para 2 status post repeat due to severe Pre Eclampsia, seen and evaluated. She denies any headache, blurry vision nor epigastric pain. Blood pressure continues to be elevated despite Labetalol. Post Day: 4 Type of Delivery: Repeat C/S Vital Signs: Vital Signs Temperature 98.7 F 10/13/16 09:00 Pulse Rate 74 10/13/16 09:00 Respiratory Rate 20 10/13/16 09:00 Blood Pressure 156/98 10/13/16 09:00 O2 Sat by Pulse Oximetry (%) 98 10/10/16 08:41 Breast Exam: Yes: Soft Uterus: Yes: Fundus Firm Incision: Yes: [place] intact Abdomen/GI: Yes: Abdomen soft, Tolerating PO Lochia: Yes: Rubra Lochia, amount: Small Extremities: Yes: Calves non-tender Perineum: Yes: Intact Activity: Ambulating - Labs Labs: CBC WBC 7.5 K/mm3 (4.0-10.0) 10/12/16 06:10 RBC 3.32 M/mm3 (3.60-5.2) L 10/12/16 06:10 Hgb 11.0 GM/dL (10.7-15.3) 10/12/16 06:10 Hct 31.7 % (32.4-45.2) L 10/12/16 06:10 MCV 95.6 fl (80-96) 10/12/16 06:10 MCH 33.3 pg (25.7-33.7) 10/12/16 06:10 MCHC 34.8 g/dl (32.0-36.0) 10/12/16 06:10 RDW 13.9 % (11.6-15.6) 10/12/16 06:10 Plt Count 154 K/MM3 (134-434) 10/12/16 06:10 MPV 8.4 fl (7.5-11.1) 10/12/16 06:10 Neutrophils % 78.1 % (42.8-82.8) 10/12/16 06:10 Lymphocytes % 15.0 % (8-40) D 10/12/16 06:10 Monocytes % 6.3 % (3.8-10.2) 10/12/16 06:10 Eosinophils % 0.5 % (0-4.5) D 10/12/16 06:10 Basophils % 0.1 % (0-2.0) 10/12/16 06:10 Retic Count 2.17 % (0.5-1.5) H D 10/11/16 06:00 Haptoglobin 94 mg/dL (34-200) 10/11/16 06:00 Problem List - Problems (1) Status post repeat low transverse section Code(s): Z98.891 - HISTORY OF UTERINE SCAR FROM PREVIOUS SURGERY (2) Pre-eclampsia affecting , antepartum Code(s): O14.90 - UNSPECIFIED PRE-ECLAMPSIA, UNSPECIFIED TRIMESTER Assessment/Plan Status post repeat Sever Pre Eclampsia Nephrology consult Continue antihypertensive
--- NOTE | 2016-10-13 09:42 | PN ---
Physical Exam: SUBJECTIVE: Patient seen and examined she is oob breast pumping. She has no new complaints. Events: - BP rising peak 170-109 3am OBJECTIVE: Vital Signs Period Temp Pulse Resp BP Sys/Boykin Pulse Ox Last 24 Hr 98.1 F-98.7 F 70-76 18-20 140-175/93-109 PE Neuro: alert, awake, cn 2-12intact Pulm: CTAB CV: s1 s2 rrr no mrg Abd: lower abd transverse incision with ольга cdi Ext: no le edema, calf tenderness Active Medications Generic Name Dose Route Start Last Admin Trade Name Freq PRN Reason Stop Dose Admin Acetaminophen 650 mg 10/10/16 09:27 10/12/16 21:12 Tylenol - PO 650 mg Q4H PRN Administration FEVER OR PAIN Bisacodyl 10 mg 10/10/16 22:19 Dulcolax Suppository - RC PRN PRN CONSTIPATION Labetalol HCl 300 mg 10/12/16 11:06 10/13/16 03:03 Normodyne - PO 300 mg Q6H PRN Administration HYPERTENSION Methylergonovine Maleate 0.2 mg 10/09/16 22:19 Methergine Injection - IM Q4H PRN Excessive Bleeding (L&D) Nifedipine 30 mg 10/13/16 10:00 10/13/16 09:07 Procardia Xl - PO 30 mg DAILY ERVIN Administration Oxycodone HCl 5 mg 10/09/16 22:19 10/12/16 21:13 Roxicodone - PO 5 mg Q4H PRN Administration PAIN LEVEL 1-5 Simethicone 80 mg 10/09/16 22:19 10/12/16 15:23 Mylicon - PO 80 mg Q4H PRN Administration GAS Assessment: 25 year old female with post HTN Plan: 1. Post HTN - Likely due to pre severe eclampsia - Give procardia 30mg x1 now - Continue labetalol to 300mg q6hr prn for BP >140/90 - Monitor bp q6hr - D/w Dr. Tay, he will see Problem List - Problems (1) Pre-eclampsia affecting , antepartum Code(s): O14.90 - UNSPECIFIED PRE-ECLAMPSIA, UNSPECIFIED TRIMESTER (2) Status post repeat low transverse section Code(s): Z98.891 - HISTORY OF UTERINE SCAR FROM PREVIOUS SURGERY (3) Epigastric abdominal pain Code(s): R10.13 - EPIGASTRIC PAIN (4) Code(s): Z33.1 - STATE, INCIDENTAL Qualifiers: Weeks of gestation: 15 weeks Qualified Code(s): Z3A.15 - 15 weeks gestation of (5) hypertension Code(s): O16.5 - UNSPECIFIED MATERNAL HYPERTENSION, COMP THE PUERPERIUM Visit type - Emergency Visit Emergency Visit: Yes ED Registration Date: 10/09/16 Care time: The patient presented to the Emergency Department on the above date and was hospitalized for further evaluation of their emergent condition. - New Patient This patient is new to me today: No - Critical Care Critical Care patient: No
[2016-10-13] MEDS ORDERED: NIFEdipine E.R. 30 MG TABLET (FP) PO SCH (10:00)
[2016-10-13] MEDS ORDERED: LABETALOL HCL 200 MG TABLET (FP) PO PRN (11:07)
--- NOTE | 2016-10-13 11:15 | CON.NEP ---
Consult Consult Specialty:: Nephrology Referred by:: Dr. Drew Reason for Consultation:: Hypertension - History of Present Illness Chief Complaint: Preeclampsia History of Present Illness: 25 year old woman with no signifincat PMHx presented at 35 weeks gestation with hypertension and proteinuira now s/p with hypertension that has been refractory to PO Labetalol. Pt has no acute complaints at the present time. Denies any WOMACK, CP, Blurry vision, N/V/D, Abd pain. 24 urine protein levels were elevated. LFT and Plt counts are normal. - History Source History Provided By: Patient Limitations to Obtaining History: No Limitations - Past Surgical History Past Surgical History: Yes: - Alcohol/Substance Use Hx Alcohol Use: No - Smoking History Smoking history: Never smoked Have you smoked in the past 12 months: No If you are a former smoker, when did you quit?: n - Social History History of Recent Travel: No Home Medications - Allergies Allergies/Adverse Reactions: Allergies Allergy/AdvReac Type Severity Reaction Status Date / Time No Known Allergies Allergy Verified 10/07/16 18:31 - Home Medications Home Medications: Ambulatory Orders Vit No.130/Iron/FA [ Vitamins] 1 each PO DAILY 10/07/16 Family Disease History - Family Disease History Family History: Unremarkable Review of Systems - Review of Systems Constitutional: reports: No Symptoms Eyes: reports: No Symptoms HENT: reports: No Symptoms Neck: reports: No Symptoms Cardiovascular: reports: No Symptoms Respiratory: reports: No Symptoms Gastrointestinal: reports: No Symptoms Genitourinary: reports: No Symptoms Neurological: reports: No Symptoms Endocrine: reports: No Symptoms Nephrology Consult - Height Height: 5 ft 1 in - Weight Weight: 201 lb - BMI Body Mass Index (BMI): 38.0 - Lab Results CBC,BMP: CBC, BMP 10/12/16 06:10 10/12/16 06:10 Anion Gap: Anion Gap Anion Gap 8 (8-16) 10/12/16 06:10 - Physical Examination Vital Signs: Vital Signs Temperature 98.7 F 10/13/16 09:00 Pulse Rate 72 10/13/16 11:00 Respiratory Rate 20 10/13/16 11:00 Blood Pressure 181/105 10/13/16 11:00 O2 Sat by Pulse Oximetry (%) 98 10/10/16 08:41 Constitutional: Yes: Well Nourished, No Distress, Calm HENT: Yes: Atraumatic, Normocephalic Neck: Yes: Supple Cardiovascular: Yes: Regular Rate and Rhythm. No: JVD, Murmur, Rub, S1, S2 Respiratory: Yes: Regular, CTA Bilaterally Gastrointestinal: Yes: Normal Bowel Sounds, Soft Edema: Yes Edema: LLE: Trace, RLE: Trace Neurological: Yes: Alert, Oriented Problem List - Problems (1) hypertension Code(s): O16.5 - UNSPECIFIED MATERNAL HYPERTENSION, COMP THE PUERPERIUM (2) Code(s): Z33.1 - STATE, INCIDENTAL Qualifiers: Weeks of gestation: 15 weeks Qualified Code(s): Z3A.15 - 15 weeks gestation of (3) Gestational edema with proteinuria Code(s): O12.20 - GESTATIONAL EDEMA WITH PROTEINURIA, UNSPECIFIED TRIMESTER Assessment/Plan 25 year old woman with no signifincat PMHx presented at 35 weeks gestation with hypertension and proteinuira now s/p with hypertension that has been refractory to PO Labetalol. # Hypertension secondary to Preeclampsia with Proteinuria No evidence of HELLP Syndrome BP has been refractory to escalating doses of Labetalol Started on Procardia XL 30mg (bp remains high 2 hours later) Will plan on second dose of Procardia at 10pm tonight if BP not controlled Continue Labetalol 400mg Q6h PRN for BP > 150/100 Trend BP closely Ideally if BP is controlled with BID dosing of Procardia pt can be discharged on Procardia alone Fall precautions. Thank you Will follow closely. Isaías Tay DO
[2016-10-13] MEDS ORDERED: LABETALOL HCL 100 MG TABLET (FP) ONE (11:18)
[2016-10-13] MEDS: LABETALOL HCL 100 MG TABLET (FP) PO PRN ×2 (11:27→23:48)
[2016-10-13] MEDS: ACETAMINOPHEN 325 MG TABLET (FP) PO PRN (17:22)
[2016-10-13] MEDS: oxyCODONE HCL 5 MG TABLET PO PRN (17:22)
[2016-10-13] MEDS: NIFEdipine E.R. 30 MG TABLET (FP) PO SCH (21:35)
[2016-10-14] MEDS: ACETAMINOPHEN 325 MG TABLET (FP) PO PRN ×2 (05:55→10:28)
[2016-10-14] MEDS: oxyCODONE HCL 5 MG TABLET PO PRN ×2 (05:55→10:27)
--- NOTE | 2016-10-14 10:04 | PN ---
Progress Note (short form) - Note Progress Note: Renal Follow up for hypertension Pt seen and examined at the bedside no acute complaints BP trend overnight: Selected Entries 10/13/16 10/13/16 10/13/16 18:00 22:00 23:45 Blood Pressure 149/87 152/95 158/98 10/14/16 10/14/16 02:00 06:00 Blood Pressure 147/91 122/79 Vital Signs Temperature 99 F 10/14/16 06:00 Pulse Rate 96 H 10/14/16 06:00 Respiratory Rate 18 10/14/16 06:00 Blood Pressure 122/79 10/14/16 06:00 O2 Sat by Pulse Oximetry (%) 98 10/10/16 08:41 BP 141/84 this am Gen: NAD, awake and alert CVS: RRR, No M/R Lungs: CTA Ext: Trace edema CBC, BMP 10/12/16 06:10 10/12/16 06:10 Laboratory Tests 10/12/16 06:10 Calcium 8.2 L Albumin 2.5 L Current Medications Acetaminophen (Tylenol -) 650 mg PO Q4H PRN PRN Reason: FEVER OR PAIN Last Admin: 10/14/16 10:28 Dose: 650 mg Bisacodyl (Dulcolax Suppository -) 10 mg RC PRN PRN PRN Reason: CONSTIPATION Labetalol HCl (Normodyne -) 400 mg PO Q6H PRN PRN Reason: HYPERTENSION Last Admin: 10/13/16 23:48 Dose: 400 mg Methylergonovine Maleate (Methergine Injection -) 0.2 mg IM Q4H PRN PRN Reason: Excessive Bleeding (L&D) Nifedipine (Procardia Xl -) 30 mg PO BID ERVIN Last Admin: 10/14/16 10:05 Dose: 30 mg Oxycodone HCl (Roxicodone -) 5 mg PO Q4H PRN PRN Reason: PAIN LEVEL 1-5 Last Admin: 10/14/16 10:27 Dose: 5 mg Simethicone (Mylicon -) 80 mg PO Q4H PRN PRN Reason: GAS Last Admin: 10/14/16 10:28 Dose: 80 mg A/P 25 year old woman with no signifincat PMHx presented at 35 weeks gestation with hypertension and proteinuira now s/p with hypertension that has been refractory to PO Labetalol. # Hypertension secondary to Preeclampsia with Proteinuria BP is improved but will still require BP meds on discharge Pt can be discharged on Procardia XL 30mg BID Low salt diet BP monitoring at home Rx sent to [facility] pharmacy Pt to follow up in the office next Monday Isaías Tay DO Problem List - Problems (1) hypertension Code(s): O16.5 - UNSPECIFIED MATERNAL HYPERTENSION, COMP THE PUERPERIUM (2) Code(s): Z33.1 - STATE, INCIDENTAL Qualifiers: Weeks of gestation: 15 weeks Qualified Code(s): Z3A.15 - 15 weeks gestation of (3) Gestational edema with proteinuria Code(s): O12.20 - GESTATIONAL EDEMA WITH PROTEINURIA, UNSPECIFIED TRIMESTER
[2016-10-14] MEDS: NIFEdipine E.R. 30 MG TABLET (FP) PO SCH (10:05)
[2016-10-14] MEDS: SIMETHICONE 80 MG TAB.CHEW (FP) PO PRN (10:28)
[2016-10-14 13:37] VITALS: BP 141/91; PULSE 88; TEMP 98.4
--- NOTE | 2016-10-14 13:57 | HOSP ---
Physical Examination Vital Signs: Vital Signs Temperature 98.4 F 10/14/16 10:00 Pulse Rate 88 10/14/16 10:00 Respiratory Rate 20 10/14/16 10:00 Blood Pressure 141/91 10/14/16 10:00 O2 Sat by Pulse Oximetry (%) 98 10/10/16 08:41 Findings/Remarks: The patient was discharged prior to my examination. Labs: CBC, BMP 10/12/16 06:10 10/12/16 06:10
== END 2016-10-14 13:43 | disposition home or self-care (01) | DRG 540 ==
LOC: JDEL 10:00 → JLDR 13:10 → J3W 10-10 22:05
PROVIDERS: ADMIT Obstetrics & Gynecology; ATTEND Obstetrics & Gynecology
PROC: 10D00Z1 Extraction of Products of Conception, Low, Open Approach (ICD-10-PCS; principal; 2016-10-09)
DX: O14.14 Severe pre-eclampsia complicating childbirth (principal); O12.24 Gestational edema with proteinuria, complicating childbirth; O34.211 Maternal care for low transverse scar from previous cesarean delivery; Z3A.35 35 weeks gestation of pregnancy; Z37.0 Single live birth; O14.95 Unspecified pre-eclampsia, complicating the puerperium; R10.13 Epigastric pain
CPT/HCPCS: 36415; 59025; 80048; 80053; 81003; 81015; 82575; 82977; 83010; 83735; 84156; 84450; 84460; 84550; 85025; 85027; 85044; 85610; 85730; 86593; 86762; 86850; 86900; 86901; 87340; 87389; 88307-TC; 90715

== ENCOUNTER 2018-02-23 07:51 | Inpatient (IN) | payer OTHER ==
[2018-02-23] MEDS ORDERED: ONDANSETRON *ODT* 4 MG TABLET SL ONE (08:18)
--- NOTE | 2018-02-23 08:19 | PDOC ---
History of Present Illness - General Chief Complaint: Pain Stated Complaint: ABDOMINAL PAIN Time Seen by Provider: 02/23/18 08:11 History Source: Patient Exam Limitations: No Limitations - History of Present Illness Travel History: No Initial Comments: 02/23/18 08:17 27 yr female history of gallstones last year presents today with RUQ pain, epigastric pain for 4 days worse after eating, relieved with tylenol. no fever, positive nausea no vomiting or diarrhea. Past History - Past Medical History Allergies/Adverse Reactions: Allergies Allergy/AdvReac Type Severity Reaction Status Date / Time No Known Allergies Allergy Verified 02/23/18 07:54 Home Medications: Ambulatory Orders Vit No.130/Iron/Folic [ Vitamins] 1 each PO DAILY 10/07/16 Anemia: No Asthma: No Cancer: No Cardiac Disorders: No CVA: No COPD: No CHF: No Dementia: No Diabetes: No GI Disorders: Yes (gallstones) Disorders: No HTN: Yes Hypercholesterolemia: No Liver Disease: No Seizures: No Thyroid Disease: No - Immunization History Immunization Up to Date: Yes - Suicide/Smoking/Psychosocial Hx Smoking History: Never smoked Have you smoked in the past 12 months: No If you are a former smoker, when did you quit?: n Hx Alcohol Use: No Drug/Substance Use Hx: No Hx Substance Use Treatment: No Abd/GI Specific PMHX - Complaint Specific PMHX Other History: gallstones 2017 Review of Systems - Review of Systems Able to Perform ROS?: Yes Is the patient limited Belgian proficient: Yes Constitutional: No: Symptoms Reported HEENTM: No: Symptoms Reported Respiratory: No: Symptoms reported Cardiac (ROS): No: Symptoms Reported ABD/GI: Yes: See HPI Musculoskeletal: No: Symptoms Reported Integumentary: No: Symptoms Reported Neurological: No: Symptoms reported *Physical Exam - Vital Signs Last Vital Signs Temp Pulse Resp BP Pulse Ox 98.2 F 62 18 110/64 99 02/23/18 07:54 02/23/18 07:54 02/23/18 07:54 02/23/18 07:54 02/23/18 07:54 - Physical Exam General Appearance: Yes: Nourished, Appropriately Dressed HEENT: positive: EOMI, KYLER Neck: positive: Supple. negative: Tender Respiratory/Chest: positive: Lungs Clear, Normal Breath Sounds Cardiovascular: positive: Regular Rhythm, Regular Rate Gastrointestinal/Abdominal: positive: Normal Bowel Sounds, Tender (epigastrum , neg lower abd pain , neg guarding ), Soft Musculoskeletal: positive: Normal Inspection Extremity: positive: Normal Capillary Refill, Normal Inspection, Normal Range of Motion Integumentary: positive: Normal Color, Dry, Warm Neurologic: positive: Fully Oriented, Alert, Normal Mood/Affect, Normal Response , Motor Strength 5/5 Moderate Sedation - Procedure Monitoring Vital Signs: Procedure Monitoring Vital Signs Temperature 98.2 F 02/23/18 07:54 Pulse Rate 62 02/23/18 07:54 Respiratory Rate 18 02/23/18 07:54 Blood Pressure 110/64 02/23/18 07:54 O2 Sat by Pulse Oximetry (%) 99 02/23/18 07:54 ED Treatment Course - LABORATORY CBC & Chemistry Diagram: 02/26/18 06:00 02/26/18 06:00 - RADIOLOGY Radiology Studies Ordered: Category Date Time Status ABDOMEN US [US] Stat Ultrasound 02/23/18 08:16 Ordered - Consult/PCP Time Called: 13:00 Case discussed with personal care physician: Allan Celestin Consult Reason/Comments: discussed with surgery - Additional Consults Time Called: 13:18 Consult/PCP: Medical Decision Making - Medical Decision Making 02/23/18 13:47 admit to hospitalist . case discussed at bedside. 02/23/18 13:58 discussed with , requesting MRCP. *DC/Admit/Observation/Transfer Diagnosis at time of Disposition: Acute gallstone pancreatitis - Discharge Dispostion Condition at time of disposition: Fair Decision to Admit order: Yes - Referrals - Patient Instructions - Post Discharge Activity
[2018-02-23] MEDS ORDERED: FAMOTIDINE 20 MG/50 ML IVPB 20 MG/50 ML MG IVPB ONE ×2 (09:25→09:44)
[2018-02-23] MEDS ORDERED: ONDANSETRON *ODT* 4 MG TABLET ONE (09:44)
[2018-02-23 10:49] LABS: BASO % 0.1 % (0-2.0); HEMATOCRIT 36.5 % (32.4-45.2); HEMOGLOBIN 13.1 GM/dL (10.7-15.3); LYMPH % 6.5 % (8-40); MCH 32.6 pg (25.7-33.7); MEAN CELL VOLUME 90.4 fl (80-96); MONO % 3.9 % (3.8-10.2); NEUT % 89.5 % (42.8-82.8); PLATELET COUNT 192 K/MM3 (134-434); RBC 4.04 M/mm3 (3.60-5.2); RDW 14.1 % (11.6-15.6); WHITE BLOOD COUNT 7.8 K/mm3 (4.0-10.0)
[2018-02-23 11:17] LABS: ALBUMIN 4.5 g/dl (3.4-5.0); ALK PHOS 118 U/L (45-117); AMYLASE > 1300 U/L (25-115); ANION GAP 13 MMOL/L (8-16); BILIRUBIN,TOTAL 1.8 mg/dL (0.2-1); BLOOD UREA NITROGEN 12 mg/dL (7-18); CALCIUM 8.6 mg/dL (8.5-10.1); CHLORIDE 104 mmol/L (98-107); CO2 22 mmol/L (21-32); CREATININE 0.6 mg/dL (0.55-1.3); GLUCOSE,RANDOM 62 mg/dL (74-106); LIPASE 25806 U/L (73-393); POTASSIUM 3.7 mmol/L (3.5-5.1); SGOT/AST 179 U/L (15-37); SGPT/ALT 184 U/L (13-61); SODIUM 139 mmol/L (136-145); TOT PROT 7.6 g/dl (6.4-8.2)
[2018-02-23] MEDS ORDERED: SODIUM CHLORIDE 1,000 ML IV STA ×2 (11:54→13:19)
[2018-02-23 12:40] LABS: URINE APPEARANCE CLEAR; URINE BILIRUBIN NEGATIVE (<2.0 mg/dL); URINE COLOR DKYELLOW; URINE GLUCOSE (UA) NEGATIVE (NEGATIVE); URINE KETONE 2+ (NEGATIVE); URINE LEUK ESTERASE NEGATIVE (NEGATIVE); URINE NITRITE NEGATIVE (NEGATIVE); URINE PROTEIN 1+ (NEGATIVE)
[2018-02-23 12:41] LABS: HCG,QUALITATIVE URINE Negative
[2018-02-23 13:17] LABS: EPI CELLS FEW /HPF (FEW); URINE MUCUS RARE
--- NOTE | 2018-02-23 15:37 | HP ---
CHIEF COMPLAINT: Abdominal pain PCP: HISTORY OF PRESENT ILLNESS: 27 year old female with a PMH significant for pre eclampisa (resolved), presented to the ED with for days of RUQ pain and one episode of vomiting. She had one episode of vomiting. She has never experienced pain like this before. Denies fevers, dizziness, syncope, chest pain, SOB, diarrhea, constipation. Upon admission to the ED, VSS, labs notable for elevated LFTs (AST: 179 Alt: 184 , Alk phos: 118) and elevated lipase of 25,806 and amaylase >1300. Abdominal US showed multiple gallstones and a dilated CBD. GI Dr. Lemos was called and he ordered an MRCP which is pending. She was given Zofran, Pepsid and Normal saline. She reports her pain has improved since being admitted. Recent Travel: No PAST MEDICAL HISTORY: Pre-eclampsia PAST SURGICAL HISTORY: x 2 Social History: Mosotho-speaking only, , 2 young children Smoking: Never Alcohol: No, is currently breast feeding Drugs: Denies Family History: Non-contributory Allergies No Known Allergies Allergy (Verified 02/23/18 07:54) HOME MEDICATIONS: Home Medications Medication Instructions Recorded Vit No.130/Iron/Folic 1 each PO DAILY 10/07/16 [ Vitamins] REVIEW OF SYSTEMS CONSTITUTIONAL: Absent: fever, chills, diaphoresis, generalized weakness, malaise, loss of appetite, weight change HEENT: Absent: rhinorrhea, nasal congestion, throat pain, throat swelling, difficulty swallowing, mouth swelling, ear pain, eye pain, visual changes CARDIOVASCULAR: Absent: chest pain, syncope, palpitations, irregular heart rate, lightheadedness , peripheral edema RESPIRATORY: Absent: cough, shortness of breath, dyspnea with exertion, orthopnea, wheezing, stridor, hemoptysis GASTROINTESTINAL: (+) abdominal pain, vomiting x 1 Absent: abdominal distension, nausea, diarrhea, constipation, melena, hematochezia GENITOURINARY: Absent: dysuria, frequency, urgency, hesitancy, hematuria, flank pain, genital pain MUSCULOSKELETAL: Absent: myalgia, arthralgia, joint swelling, back pain, neck pain SKIN: Absent: rash, itching, pallor HEMATOLOGIC/IMMUNOLOGIC: Absent: easy bleeding, easy bruising, lymphadenopathy, frequent infections ENDOCRINE: Absent: unexplained weight gain, unexplained weight loss, heat intolerance, cold intolerance NEUROLOGIC: Absent: headache, focal weakness or paresthesias, dizziness, unsteady gait, seizure, mental status changes, bladder or bowel incontinence PSYCHIATRIC: Absent: anxiety, depression, suicidal or homicidal ideation, hallucinations. PHYSICAL EXAMINATION Vital Signs - 24 hr 02/23/18 02/23/18 07:54 12:58 Temperature 98.2 F 98.0 F Pulse Rate 62 Pulse Rate [ 75 Left Radial] Respiratory 18 18 Rate Blood Pressure 110/64 Blood Pressure 106/53 L [Right Arm] O2 Sat by Pulse 99 100 Oximetry (%) GENERAL: Awake, alert, and fully oriented, in no acute distress. HEAD: Normal with no signs of trauma. EYES: Pupils equal, round and reactive to light, extraocular movements intact, sclera anicteric, conjunctiva clear. No lid lag. EARS, NOSE, THROAT: Nares patent, oropharynx clear without exudates. Moist mucous membranes. NECK: Normal range of motion, supple without lymphadenopathy, JVD, or masses. LUNGS: Breath sounds equal, clear to auscultation bilaterally. No wheezes, and no crackles. No accessory muscle use. HEART: Regular rate and rhythm, normal S1 and S2 without murmur, rub or gallop. ABDOMEN: Soft, TTP in epigastric region, not distended, normoactive bowel sounds , no guarding, no rebound, no masses. No hepatomegaly or splenomegaly. MUSCULOSKELETAL: Normal range of motion at all joints. No bony deformities or tenderness. No CVA tenderness. UPPER EXTREMITIES: 2+ pulses, warm, well-perfused. No cyanosis. No clubbing. No peripheral edema. LOWER EXTREMITIES: 2+ pulses, warm, well-perfused. No calf tenderness. No peripheral edema. NEUROLOGICAL: No facial droop, tongue midline, normal speech PSYCHIATRIC: Cooperative. Good eye contact. Appropriate mood and affect. SKIN: Warm, dry, normal turgor, no rashes or lesions noted, normal capillary refill. Laboratory Results - last 24 hr 02/23/18 02/23/18 02/23/18 09:50 09:50 11:38 WBC 7.8 RBC 4.04 Hgb 13.1 Hct 36.5 D MCV 90.4 MCH 32.6 MCHC 36.0 RDW 14.1 Plt Count 192 D MPV 9.0 Absolute Neuts (auto) 7.0 Neutrophils % 89.5 H Lymphocytes % 6.5 L D Monocytes % 3.9 Eosinophils % 0.0 D Basophils % 0.1 Nucleated RBC % 0 Sodium 139 Potassium 3.7 Chloride 104 Carbon Dioxide 22 Anion Gap 13 BUN 12 Creatinine 0.6 Creat Clearance w eGFR > 60 Random Glucose 62 L Calcium 8.6 Total Bilirubin 1.8 H AST 179 H ALT 184 H Alkaline Phosphatase 118 H Total Protein 7.6 Albumin 4.5 Total Amylase > 1300 H Lipase 88848 H Urine Color Dkyellow Urine Appearance Clear Urine pH 5.0 D Ur Specific [place] 1.025 Urine Protein 1+ H Urine Glucose (UA) Negative Urine Ketones 2+ H Urine Blood Negative Urine Nitrite Negative Urine Bilirubin Negative Urine Urobilinogen 2.0 H Ur Leukocyte Esterase Negative Urine WBC (Auto) 2 Urine RBC (Auto) <1 Ur Epithelial Cells Few Urine Mucus Rare Urine HCG, Qual Negative Abdominal US - Over distended gallbladder with multiple gallstones and without wall thickening or pericholecystic free fluid. Further evaluation is needed to rule out acute cholecystitis. Dilated common bile duct measuring 1.2 cm in diameter and mild dilatation of the central intrahepatic bile ducts. There is suggestion of debris layering within the common bile duct without definite evidence of a stone. Correlation with MRCP is recommended. Borderline dilatation of the pancreatic duct. ASSESSMENT/PLAN: 27 year old female with a PMH significant for pre eclampisa (resolved), presented to the ED with for days of RUQ pain and one episode of vomiting. Abdominal US showed multiple gallstones and a dilated CBD. She was admitted for surgical and GI consult. Cholelithiasis - Broad spectrum coverage - ID specialist Dr. Tirado consulted - Zosyn 3.375 mg IVP - ID, GI, and Surgery consults ordered - MRCP ordered - NPO until cleared by surgery Prophylaxis - DVT: OOB FEN - NS @ 100cc/hr while NPO - Replete as needed - NPO for now until cleared by surgery Disp: Requires inpatient treatment. FULL CODE Visit type - Emergency Visit Emergency Visit: Yes ED Registration Date: 02/23/18 Care time: The patient presented to the Emergency Department on the above date and was hospitalized for further evaluation of their emergent condition. - New Patient This patient is new to me today: Yes Date on this admission: 02/23/18 - Critical Care Critical Care patient: No
[2018-02-23] MEDS ORDERED: PIPERACILLIN/TAZOB 3.375 GM 3.375 GM in DEXTROSE 5%-WATER - 50 ML IVPB ONE (16:12)
[2018-02-23] MEDS ORDERED: PIPERACILLIN/TAZOB 3.375 GM 3.375 GM/50 ML BAG IVPB ONE (17:18)
--- NOTE | 2018-02-23 17:19 | PN ---
Progress Note (short form) - Note Progress Note: surgery 27f with abd pain, elevated lfts, dilated cbd, elevated amylase/lipase. clinically biliary pancreatitis with possible remaining cbd stone. recommend cholecystectomy prior to discharge once pancreatitis resolves and cbd shown to be clear.
--- NOTE | 2018-02-23 17:27 | CON.GI ---
Consult Consult Specialty:: Gastroenterology ( covering Dr Still) Referred by:: Misti Bradley NP Reason for Consultation:: Pancreatitis - History of Present Illness Chief Complaint: Abdominal pain and vomiting History of Present Illness: 27F developed abdominal pain 2 days ago which subsided. It recurred today and was more severe. She has nausea but no vomiting. This history was taken using [employer] unindentured apprentice # [id number]. She has known gallstones diagnosed during her last . Her pain is subsiding. She denies chills or fever. She denies any h/o GI problems - History Source History Provided By: Patient Limitations to Obtaining History: Language Barrier - Past Medical History Additional Medical History: no medical problems - Past Surgical History Past Surgical History: Yes: (x 2) - Alcohol/Substance Use Hx Alcohol Use: No History of Substance Use: reports: None - Smoking History Smoking history: Never smoked Have you smoked in the past 12 months: No If you are a former smoker, when did you quit?: n - Social History Usual Living Arrangement: With Spouse ADL: Independent Occupation: housewife Place of : Other ([place]) Came to [place] (year): age 23 History of Recent Travel: No Home Medications - Allergies Allergies/Adverse Reactions: Allergies Allergy/AdvReac Type Severity Reaction Status Date / Time No Known Allergies Allergy Verified 02/23/18 07:54 - Home Medications Home Medications: Ambulatory Orders Vit No.130/Iron/Folic [ Vitamins] 1 each PO DAILY 10/07/16 Family Disease History - Family Disease History Family Disease History: Other: Father (healthy), Mother (healthy) Review of Systems - Review of Systems Constitutional: reports: No Symptoms Eyes: reports: No Symptoms HENT: reports: No Symptoms Neck: reports: No Symptoms Respiratory: reports: No Symptoms Gastrointestinal: reports: Abdominal Pain, Nausea Genitourinary: reports: No Symptoms Musculoskeletal: reports: No Symptoms Physical Exam-GI Vital Signs: Vital Signs Temperature 98.0 F 02/23/18 12:58 Pulse Rate 75 02/23/18 12:58 Respiratory Rate 18 02/23/18 12:58 Blood Pressure 106/53 L 02/23/18 12:58 O2 Sat by Pulse Oximetry (%) 100 02/23/18 12:58 CBC,CMP WBC 7.8 K/mm3 (4.0-10.0) 02/23/18 09:50 RBC 4.04 M/mm3 (3.60-5.2) 02/23/18 09:50 Hgb 13.1 GM/dL (10.7-15.3) 02/23/18 09:50 Hct 36.5 % (32.4-45.2) D 02/23/18 09:50 MCV 90.4 fl (80-96) 02/23/18 09:50 MCH 32.6 pg (25.7-33.7) 02/23/18 09:50 MCHC 36.0 g/dl (32.0-36.0) 02/23/18 09:50 RDW 14.1 % (11.6-15.6) 02/23/18 09:50 Plt Count 192 K/MM3 (134-434) D 02/23/18 09:50 MPV 9.0 fl (7.5-11.1) 02/23/18 09:50 Absolute Neuts (auto) 7.0 K/mm3 (1.5-8.0) 02/23/18 09:50 Neutrophils % 89.5 % (42.8-82.8) H 02/23/18 09:50 Lymphocytes % 6.5 % (8-40) L D 02/23/18 09:50 Monocytes % 3.9 % (3.8-10.2) 02/23/18 09:50 Eosinophils % 0.0 % (0-4.5) D 02/23/18 09:50 Basophils % 0.1 % (0-2.0) 02/23/18 09:50 Nucleated RBC % 0 % (0-0) 02/23/18 09:50 Sodium 139 mmol/L (136-145) 02/23/18 09:50 Potassium 3.7 mmol/L (3.5-5.1) 02/23/18 09:50 Chloride 104 mmol/L (98-107) 02/23/18 09:50 Carbon Dioxide 22 mmol/L (21-32) 02/23/18 09:50 Anion Gap 13 MMOL/L (8-16) 02/23/18 09:50 BUN 12 mg/dL (7-18) 02/23/18 09:50 Creatinine 0.6 mg/dL (0.55-1.3) 02/23/18 09:50 Creat Clearance w eGFR > 60 (>60) 02/23/18 09:50 Random Glucose 62 mg/dL (74-106) L 02/23/18 09:50 Calcium 8.6 mg/dL (8.5-10.1) 02/23/18 09:50 Total Bilirubin 1.8 mg/dL (0.2-1) H 02/23/18 09:50 AST 179 U/L (15-37) H 02/23/18 09:50 ALT 184 U/L (13-61) H 02/23/18 09:50 Alkaline Phosphatase 118 U/L (45-117) H 02/23/18 09:50 Total Protein 7.6 g/dl (6.4-8.2) 02/23/18 09:50 Albumin 4.5 g/dl (3.4-5.0) 02/23/18 09:50 Total Amylase > 1300 U/L (25-115) H 02/23/18 09:50 Lipase 31963 U/L (73-393) H 02/23/18 09:50 Current Medications Generic Name Dose Route Start Last Admin Trade Name Freq PRN Reason Stop Dose Admin Sodium Chloride 1,000 mls @ 100 mls/hr 02/23/18 15:45 Normal Saline - IV ASDIR ERVIN Constitutional: Yes: Calm Eyes: Yes: Conjunctiva Clear HENT: Yes: Atraumatic Neck: Yes: Supple, Trachea Midline Cardiovascular: Yes: Regular Rate and Rhythm Respiratory: Yes: CTA Bilaterally Gastrointestinal Inspection: Yes: Distention, Scars (healed Pfannensteil incisions) ...Auscultate: Yes: Hypoactive Bowel Sounds ...Palpate: Yes: Soft, Other (nontender) ...Rectal Exam: Yes: Deferred (not enough privacy in ER) Labs: CBC, BMP 02/23/18 09:50 02/23/18 09:50 Imaging - Results Ultrasound: Report Reviewed (Seamus De Dios Name: [facility] DEPARTMENT OF RADIOLOGY Phys: Misti Bradley NP : 1990 Age: 27 Sex: F [facility] Acct: [id number] Loc: [address] Exam Date: 02/23/18 Status: ANURAG [place] [id number] Unit Number: [id number] EXAM#: TYPE/EXAM: RESULT: [id number] US/ABDOMEN US Right upper quadrant pain. History of gallstones. Right upper abdomen ultrasound. Compared to prior examination dated 2016 The liver is within normal limits in size measuring 14 cm in sagittal length with homogeneous echotexture. There is mild dilatation of the central intrahepatic bile ducts.. Gallbladder is over distended measuring 11.6 cm in sagittal with multiple small intraluminal stones layering posteriorly and without wall thickening or pericholecystic free fluid. No intrahepatic bile duct dilatation is seen. Dilated common bile duct measuring 1.2 cm in AP dimension. The right kidney measures 11 cm sagittal length and appears unremarkable. Visualized portion of the pancreas is within normal limits in size with borderline dilatation of the pancreatic duct. Visualized portion of the proximal abdominal aorta and inferior vena cava appear unremarkable. Normal flow in the main portal vein. IMPRESSION: Over distended gallbladder with multiple gallstones and without wall thickening or pericholecystic free fluid. Further evaluation is needed to rule out acute cholecystitis. Dilated common bile duct measuring 1.2 cm in diameter and mild dilatation of the central intrahepatic bile ducts. There is suggestion of debris layering within the common bile duct without definite evidence of a stone. Correlation with MRCP is recommended. Borderline dilatation of the pancreatic duct. Reported By: Rafael Rose MD 02/23/18 1253 Misti Bradley Technologist: [place] Powers Jr Transcribed Date/Time: 02/23 1253 Department Helper: Rafael Rose Printed Date/Time: By: Signed by: Rafael Rose Signed on: 23-Feb-2018 12:53) Problem List - Problems (1) Acute gallstone pancreatitis Assessment/Plan: The picture in entirely consistent with biliary pancreatitis. Using the [employer] thermocouple tester I informed Mery and her of the potential need for an ERCP to extract CBD stones before she can undergo cholecystectomy. I informed then of the potential for such complications as perforation and hemorrhage that could require surgery and/or transfusions. I also informed them of the risk of ERCP induced pancreatitis that can lead to multiorgan failure. I also explained that she may need a stent and repeat ERCP if the stones are large. After I answered their questions they signed an informed consent. I await the MRCP findings. Code(s): K85.10 - BILIARY ACUTE PANCREATITIS WITHOUT NECROSIS OR INFECTION (2) Epigastric abdominal pain Code(s): R10.13 - EPIGASTRIC PAIN (3) Status post repeat low transverse section Code(s): Z98.891 - HISTORY OF UTERINE SCAR FROM PREVIOUS SURGERY Assessment/Plan Biliary pancreatitis May need ERCP- consent obtained Continue antibiotics Await MRCP Dr. Salazar will be covering this weekend.
[2018-02-23] MEDS: SODIUM CHLORIDE 1,000 ML IV SCH ×2 (17:42→18:44)
[2018-02-23 20:59] VITALS: BMI 26.3
[2018-02-24] MEDS ORDERED: DEXTROSE 5%-WATER - 50 ML IVPB ONE ×3 (02:03→17:11)
[2018-02-24] MEDS ORDERED: PIPERACILLIN/TAZOBACTAM 2.25 GM VIAL IVPB ONE ×3 (02:03→17:11)
[2018-02-24] MEDS: PIPERACILLIN/TAZOB 2.25 GM 2.25 GM in DEXTROSE 5%-WATER - 50 ML IVPB SCH ×3 (02:11→17:16)
[2018-02-24 07:28] LABS: HEMOGLOBIN 11.4 GM/dL (10.7-15.3); MCH 32.7 pg (25.7-33.7); MCHC 35.5 g/dl (32.0-36.0); PLATELET COUNT 167 K/MM3 (134-434); RBC 3.48 M/mm3 (3.60-5.2); RDW 14.3 % (11.6-15.6); WHITE BLOOD COUNT 5.8 K/mm3 (4.0-10.0)
--- NOTE | 2018-02-24 07:34 | PN ---
Progress Note, Physician Chief Complaint: patient denies any abdominal pain n/v / fever/ chills - Current Medication List Current Medications: Active Medications Sodium Chloride (Normal Saline -) 1,000 mls @ 100 mls/hr IV ASDIR ERVIN Last Admin: 02/23/18 18:44 Dose: 100 mls/hr Piperacillin Sod/Tazobactam (Sod 2.25 gm/ Dextrose) 50 mls @ 100 mls/hr IVPB Q8H-IV ERVIN; Protocol Last Admin: 02/24/18 02:11 Dose: 100 mls/hr - Objective Vital Signs: Vital Signs Temperature 98.4 F 02/24/18 06:00 Pulse Rate 73 02/24/18 06:00 Respiratory Rate 18 02/24/18 06:00 Blood Pressure 96/46 L 02/24/18 06:00 O2 Sat by Pulse Oximetry (%) 98 02/23/18 21:00 Constitutional: Yes: Well Nourished, No Distress, Moderate Distress Eyes: Yes: WNL HENT: Yes: WNL Neck: Yes: WNL, Supple Cardiovascular: Yes: WNL Respiratory: Yes: Regular, CTA Bilaterally Gastrointestinal: Yes: WNL, Normal Bowel Sounds, Soft Musculoskeletal: Yes: WNL Extremities: Yes: WNL Edema: No Problem List - Problems (1) Pancreatitis Assessment/Plan: advance to clear liquid diet MRCP pending results c/w abx IVF's trend LFT daily while hospitalized Code(s): K85.90 - ACUTE PANCREATITIS WITHOUT NECROSIS OR INFECTION, UNSP (2) Epigastric abdominal pain Code(s): R10.13 - EPIGASTRIC PAIN
[2018-02-24 08:03] LABS: INR 1.23 (0.83-1.09); PROTHROMBIN TIME (PATIENT) 14.5 SEC (9.7-13.0)
[2018-02-24 08:10] LABS: AMYLASE 662 U/L (25-115); ANION GAP 13 MMOL/L (8-16); BLOOD UREA NITROGEN 6 mg/dL (7-18); CALCIUM 7.7 mg/dL (8.5-10.1); CHLORIDE 110 mmol/L (98-107); CO2 16 mmol/L (21-32); CREATININE 0.5 mg/dL (0.55-1.3); GLUCOSE,RANDOM 50 mg/dL (74-106); LIPASE 2655 U/L (73-393); MAGNESIUM 1.8 mg/dL (1.8-2.4); PHOSPHOROUS 3.4 mg/dL (2.5-4.9); POTASSIUM 3.8 mmol/L (3.5-5.1); SODIUM 139 mmol/L (136-145)
--- NOTE | 2018-02-24 10:49 | CON.ID ---
Consult - History of Present Illness History of Present Illness: 27 y.o. female presents with c/o RUQ pain that began 4 days ago and one episode of vomiting. Pt states she had similar symptoms 1 month ago that resolved. In the ER pt had pain and nausea but denied fever/chills or further vomiting. Currently pt is alert, remains afebrile, and denies pain. She has no other specific complaints. - History Source History Provided By: Patient, Medical Record Limitations to Obtaining History: No Limitations - Past Medical History ...LMP: 02/09/18 ...: No Additional Medical History: no medical problems - Past Surgical History Past Surgical History: Yes: (x 2) - Alcohol/Substance Use Hx Alcohol Use: No History of Substance Use: reports: None - Smoking History Smoking history: Never smoked Have you smoked in the past 12 months: No If you are a former smoker, when did you quit?: n - Social History Usual Living Arrangement: With Spouse ADL: Independent Occupation: housewife History of Recent Travel: No Home Medications - Allergies Allergies/Adverse Reactions: Allergies Allergy/AdvReac Type Severity Reaction Status Date / Time No Known Allergies Allergy Verified 02/23/18 07:54 - Home Medications Home Medications: Ambulatory Orders Vit No.130/Iron/Folic [ Vitamins] 1 each PO DAILY 10/07/16 Family Disease History - Family Disease History Family Disease History: Other: Father (healthy), Mother (healthy) Review of Systems - Review of Systems Constitutional: reports: No Symptoms Eyes: reports: No Symptoms HENT: reports: No Symptoms Neck: reports: No Symptoms Cardiovascular: reports: No Symptoms Respiratory: reports: No Symptoms Gastrointestinal: reports: Abdominal Pain (resolved) Genitourinary: reports: No Symptoms Breasts: reports: No Symptoms Reported Musculoskeletal: reports: No Symptoms Integumentary: reports: No Symptoms Neurological: reports: No Symptoms Endocrine: reports: No Symptoms Hematology/Lymphatic: reports: No Symptoms Psychiatric: reports: No Symptoms Physical Exam Vital Signs: Vital Signs Temperature 98.4 F 02/24/18 06:00 Pulse Rate 73 02/24/18 06:00 Respiratory Rate 18 02/24/18 06:00 Blood Pressure 96/46 L 02/24/18 06:00 O2 Sat by Pulse Oximetry (%) 98 02/23/18 21:00 Constitutional: Yes: No Distress, Calm Eyes: Yes: Conjunctiva Clear Neck: Yes: Supple Cardiovascular: Yes: Regular Rate and Rhythm Respiratory: Yes: CTA Bilaterally Gastrointestinal: Yes: Normal Bowel Sounds, Soft Renal/: Yes: WNL Musculoskeletal: Yes: WNL Extremities: Yes: WNL Edema: No Integumentary: Yes: WNL Neurological: Yes: Alert, Oriented Psychiatric: Yes: Alert Labs: CBC, BMP 02/24/18 06:00 02/24/18 06:00 Laboratory Tests 02/23/18 02/23/18 02/23/18 09:50 09:50 11:38 WBC 7.8 RBC 4.04 Hgb 13.1 Hct 36.5 D MCV 90.4 MCH 32.6 MCHC 36.0 RDW 14.1 Plt Count 192 D MPV 9.0 Absolute Neuts (auto) 7.0 Neutrophils % 89.5 H Lymphocytes % 6.5 L D Monocytes % 3.9 Eosinophils % 0.0 D Basophils % 0.1 Nucleated RBC % 0 PT with INR INR Sodium 139 Potassium 3.7 Chloride 104 Carbon Dioxide 22 Anion Gap 13 BUN 12 Creatinine 0.6 Creat Clearance w eGFR > 60 Random Glucose 62 L Calcium 8.6 Phosphorus Magnesium Total Bilirubin 1.8 H AST 179 H ALT 184 H Alkaline Phosphatase 118 H C-Reactive Protein Total Protein 7.6 Albumin 4.5 Total Amylase > 1300 H Lipase 85565 H Urine Color Dkyellow Urine Appearance Clear Urine pH 5.0 D Ur Specific [place] 1.025 Urine Protein 1+ H Urine Glucose (UA) Negative Urine Ketones 2+ H Urine Blood Negative Urine Nitrite Negative Urine Bilirubin Negative Urine Urobilinogen 2.0 H Ur Leukocyte Esterase Negative Urine WBC (Auto) 2 Urine RBC (Auto) <1 Ur Epithelial Cells Few Urine Mucus Rare Urine HCG, Qual Negative 02/24/18 02/24/18 02/24/18 06:00 06:00 06:00 WBC 5.8 RBC 3.48 L Hgb 11.4 Hct 32.0 L MCV 92.0 MCH 32.7 MCHC 35.5 RDW 14.3 Plt Count 167 MPV 9.0 Absolute Neuts (auto) Neutrophils % Lymphocytes % Monocytes % Eosinophils % Basophils % Nucleated RBC % PT with INR 14.50 H INR 1.23 H Sodium 139 Potassium 3.8 Chloride 110 H Carbon Dioxide 16 L Anion Gap 13 BUN 6 L Creatinine 0.5 L Creat Clearance w eGFR > 60 Random Glucose 50 L Calcium 7.7 L Phosphorus 3.4 Magnesium 1.8 Total Bilirubin AST ALT Alkaline Phosphatase C-Reactive Protein Total Protein Albumin Total Amylase 662 H Lipase 2655 H Urine Color Urine Appearance Urine pH Ur Specific [place] Urine Protein Urine Glucose (UA) Urine Ketones Urine Blood Urine Nitrite Urine Bilirubin Urine Urobilinogen Ur Leukocyte Esterase Urine WBC (Auto) Urine RBC (Auto) Ur Epithelial Cells Urine Mucus Urine HCG, Qual 02/24/18 06:00 WBC RBC Hgb Hct MCV MCH MCHC RDW Plt Count MPV Absolute Neuts (auto) Neutrophils % Lymphocytes % Monocytes % Eosinophils % Basophils % Nucleated RBC % PT with INR INR Sodium Potassium Chloride Carbon Dioxide Anion Gap BUN Creatinine Creat Clearance w eGFR Random Glucose Calcium Phosphorus Magnesium Total Bilirubin AST ALT Alkaline Phosphatase C-Reactive Protein 0.9 H Total Protein Albumin Total Amylase Lipase Urine Color Urine Appearance Urine pH Ur Specific [place] Urine Protein Urine Glucose (UA) Urine Ketones Urine Blood Urine Nitrite Urine Bilirubin Urine Urobilinogen Ur Leukocyte Esterase Urine WBC (Auto) Urine RBC (Auto) Ur Epithelial Cells Urine Mucus Urine HCG, Qual Imaging - Results Cat Scan: Report Reviewed Problem List - Problems (1) Acute gallstone pancreatitis Code(s): K85.10 - BILIARY ACUTE PANCREATITIS WITHOUT NECROSIS OR INFECTION Assessment/Plan 27 y.o. female presenting with RUQ pain and nausea, elevated LFTs/amylase/ lipase with evidence of multiple gallstones, distended GB and mild CBD distension Gallstone Pancreatitis -- continue antibiotics for now -- For possible ERCP -- monitor LFTs, Lipase (trending down) Will follow Thank you
[2018-02-24] MEDS ORDERED: morphine CARPU-JECT 2 MG/1 ML DISP.SYRIN IVPUSH PRN (11:17)
--- NOTE | 2018-02-24 14:08 | PN ---
Physical Exam: SUBJECTIVE: Patient seen and examined. Denies abdominal pain, reports she is hungry. Pending ERCP OBJECTIVE: Vital Signs Period Temp Pulse Resp BP Sys/Boykin Pulse Ox Last 24 Hr 98.2 F-98.7 F 66-82 18-20 96-102/46-65 98-100 GENERAL: Awake, alert, and fully oriented, in no acute distress. HEAD: Normal with no signs of trauma. EYES: Pupils equal, round and reactive to light, extraocular movements intact, sclera anicteric, conjunctiva clear. No lid lag. EARS, NOSE, THROAT: Nares patent, oropharynx clear without exudates. Moist mucous membranes. NECK: Normal range of motion, supple without lymphadenopathy, JVD, or masses. LUNGS: Breath sounds equal, clear to auscultation bilaterally. No wheezes, and no crackles. No accessory muscle use. HEART: Regular rate and rhythm, normal S1 and S2 without murmur, rub or gallop. ABDOMEN: Soft, TTP in epigastric region, not distended, normoactive bowel sounds , no guarding, no rebound, no masses. No hepatomegaly or splenomegaly. MUSCULOSKELETAL: Normal range of motion at all joints. No bony deformities or tenderness. No CVA tenderness. UPPER EXTREMITIES: 2+ pulses, warm, well-perfused. No cyanosis. No clubbing. No peripheral edema. LOWER EXTREMITIES: 2+ pulses, warm, well-perfused. No calf tenderness. No peripheral edema. NEUROLOGICAL: No facial droop, tongue midline, normal speech PSYCHIATRIC: Cooperative. Good eye contact. Appropriate mood and affect. SKIN: Warm, dry, normal turgor, no rashes or lesions noted, normal capillary refill. Laboratory Results - last 24 hr 02/24/18 02/24/18 02/24/18 06:00 06:00 06:00 WBC 5.8 RBC 3.48 L Hgb 11.4 Hct 32.0 L MCV 92.0 MCH 32.7 MCHC 35.5 RDW 14.3 Plt Count 167 MPV 9.0 PT with INR 14.50 H INR 1.23 H Sodium 139 Potassium 3.8 Chloride 110 H Carbon Dioxide 16 L Anion Gap 13 BUN 6 L Creatinine 0.5 L Creat Clearance w eGFR > 60 Random Glucose 50 L Calcium 7.7 L Phosphorus 3.4 Magnesium 1.8 C-Reactive Protein Total Amylase 662 H Lipase 2655 H 12/08/18 06:00 WBC RBC Hgb Hct MCV MCH MCHC RDW Plt Count MPV PT with INR INR Sodium Potassium Chloride Carbon Dioxide Anion Gap BUN Creatinine Creat Clearance w eGFR Random Glucose Calcium Phosphorus Magnesium C-Reactive Protein 0.9 H Total Amylase Lipase Active Medications Generic Name Dose Route Start Last Admin Trade Name Freq PRN Reason Stop Dose Admin Sodium Chloride 1,000 mls @ 100 mls/hr 02/23/18 15:45 02/23/18 18:44 Normal Saline - IV 100 mls/hr ASDIR ERVIN Administration Piperacillin Sod/Tazobactam 50 mls @ 100 mls/hr 02/24/18 02:00 02/24/18 10:25 Sod 2.25 gm/ Dextrose IVPB 100 mls/hr Q8H-IV ERVIN Administration Protocol Morphine Sulfate 0.5 mg 02/24/18 11:17 Morphine Injection - IVPUSH Q4H PRN PAIN LEVEL 6-10 Pantoprazole Sodium 40 mg 02/24/18 11:30 Protonix Iv IVPUSH DAILY ERVIN Abdominal US - Over distended gallbladder with multiple gallstones and without wall thickening or pericholecystic free fluid. Further evaluation is needed to rule out acute cholecystitis. Dilated common bile duct measuring 1.2 cm in diameter and mild dilatation of the central intrahepatic bile ducts. There is suggestion of debris layering within the common bile duct without definite evidence of a stone. Correlation with MRCP is recommended. Borderline dilatation of the pancreatic duct. ASSESSMENT/PLAN: 27 year old female with a PMH significant for pre eclampisa (resolved), presented to the ED with for days of RUQ pain and one episode of vomiting. Abdominal US showed multiple gallstones and a dilated CBD. She was admitted for surgical and GI consult. Cholelithiasis - Broad spectrum coverage - ID specialist Dr. Tirado consulted - Seen by - MRCP ordered - NPO until cleared by surgery Pancreatitis - LFTs trending down - Elevated lipase of 25,806 and amaylase >1300 - Seen by ID - Zosyn 3.375 mg IVP q8H - NPO - Monitor glucose - D5 1/2 NS - Seen by GI - ERCP pending to extract CBD stones before she can undergo cholecystectomy. - May need a stent and repeat ERCP if the stones are large Prophylaxis - DVT: OOB FEN - D5 1/2 NS @ 100cc/hr while NPO - Replete as needed - NPO for now Disp: Requires inpatient treatment. FULL CODE Visit type - Emergency Visit Emergency Visit: No - New Patient This patient is new to me today: No - Critical Care Critical Care patient: No
[2018-02-24] MEDS: PANTOPRAZOLE SODIUM 40 MG VIAL IVPUSH SCH (17:20)
[2018-02-25] MEDS ORDERED: PIPERACILLIN/TAZOBACTAM 2.25 GM VIAL IVPB ONE ×3 (01:56→18:08)
[2018-02-25] MEDS ORDERED: DEXTROSE 5%-WATER - 50 ML IVPB ONE ×3 (01:56→18:08)
[2018-02-25] MEDS: PIPERACILLIN/TAZOB 2.25 GM 2.25 GM in DEXTROSE 5%-WATER - 50 ML IVPB SCH ×3 (02:15→18:13)
[2018-02-25] MEDS: SODIUM CHLORIDE 1,000 ML IV SCH (02:15)
[2018-02-25 07:24] LABS: HEMATOCRIT 33.2 % (32.4-45.2); HEMOGLOBIN 11.3 GM/dL (10.7-15.3); MCH 31.2 pg (25.7-33.7); MCHC 33.9 g/dl (32.0-36.0); MEAN CELL VOLUME 91.9 fl (80-96); MEAN PLT VOLUME 8.6 fl (7.5-11.1); PLATELET COUNT 152 K/MM3 (134-434); RBC 3.61 M/mm3 (3.60-5.2); RDW 14.2 % (11.6-15.6); WHITE BLOOD COUNT 4.2 K/mm3 (4.0-10.0)
[2018-02-25 08:13] LABS: ALBUMIN 3.6 g/dl (3.4-5.0); ALK PHOS 103 U/L (45-117); ANION GAP 11 MMOL/L (8-16); BILIRUBIN,TOTAL 0.8 mg/dL (0.2-1); BLOOD UREA NITROGEN 5 mg/dL (7-18); CALCIUM 8.1 mg/dL (8.5-10.1); CHLORIDE 109 mmol/L (98-107); CO2 21 mmol/L (21-32); CREATININE 0.5 mg/dL (0.55-1.3); GLUCOSE,RANDOM 66 mg/dL (74-106); POTASSIUM 3.2 mmol/L (3.5-5.1); SGOT/AST 21 U/L (15-37); SGPT/ALT 85 U/L (13-61); SODIUM 141 mmol/L (136-145); TOT PROT 6.5 g/dl (6.4-8.2)
--- NOTE | 2018-02-25 08:34 | PN ---
Progress Note, Physician Chief Complaint: patient denies any abdominal pain n/v / fever/ chills - Current Medication List Current Medications: Active Medications Sodium Chloride (Normal Saline -) 1,000 mls @ 100 mls/hr IV ASDIR [facility] Last Admin: 02/25/18 02:15 Dose: 100 mls/hr Piperacillin Sod/Tazobactam (Sod 2.25 gm/ Dextrose) 50 mls @ 100 mls/hr IVPB Q8H-IV ERVIN; Protocol Last Admin: 02/25/18 02:15 Dose: 100 mls/hr Morphine Sulfate (Morphine Injection -) 0.5 mg IVPUSH Q4H PRN PRN Reason: PAIN LEVEL 6-10 Pantoprazole Sodium (Protonix Iv) 40 mg IVPUSH DAILY [facility] Last Admin: 02/24/18 17:20 Dose: 40 mg - Objective Vital Signs: Vital Signs Temperature 97.9 F 02/25/18 06:55 Pulse Rate 74 02/25/18 06:55 Respiratory Rate 18 02/25/18 06:55 Blood Pressure 104/69 02/25/18 06:55 O2 Sat by Pulse Oximetry (%) 98 02/23/18 21:00 Constitutional: Yes: Well Nourished, No Distress, Calm Eyes: Yes: WNL HENT: Yes: WNL Neck: Yes: WNL, Supple Cardiovascular: Yes: WNL, Regular Rate and Rhythm Respiratory: Yes: WNL, Regular, CTA Bilaterally Gastrointestinal: Yes: WNL, Normal Bowel Sounds, Soft Extremities: Yes: WNL Edema: No Labs: CBC, BMP 02/25/18 06:00 02/25/18 06:00 INR, PTT INR 1.23 (0.83-1.09) H 02/24/18 06:00 Problem List - Problems (1) Pancreatitis Assessment/Plan: - MRCP pending results - c/w abx - IVF's - trend LFT daily while hospitalized -- LFt's have nearly normalized - c/w clear liquid diet today ; tentatively NPO midnight for ercp MONDAY - Dr. Lemos to resume care tomorrow Code(s): K85.90 - ACUTE PANCREATITIS WITHOUT NECROSIS OR INFECTION, UNSP (2) Epigastric abdominal pain Code(s): R10.13 - EPIGASTRIC PAIN
[2018-02-25] MEDS ORDERED: POTASSIUM CHLORIDE TABS 20 MEQ TABLET.ER (FP) PO ONE (09:45)
--- NOTE | 2018-02-25 11:34 | PN ---
Progress Note, Physician History of Present Illness: Pt is alert. States she feels well. Denies abd pain/n/v. Remains afebrile. - Current Medication List Current Medications: Active Medications Sodium Chloride (Normal Saline -) 1,000 mls @ 100 mls/hr IV ASDIR ERVIN Last Admin: 02/25/18 02:15 Dose: 100 mls/hr Piperacillin Sod/Tazobactam (Sod 2.25 gm/ Dextrose) 50 mls @ 100 mls/hr IVPB Q8H-IV ERVIN; Protocol Last Admin: 02/25/18 02:15 Dose: 100 mls/hr Morphine Sulfate (Morphine Injection -) 0.5 mg IVPUSH Q4H PRN PRN Reason: PAIN LEVEL 6-10 Pantoprazole Sodium (Protonix Iv) 40 mg IVPUSH DAILY [facility] Last Admin: 02/24/18 17:20 Dose: 40 mg - Objective Vital Signs: Vital Signs Temperature 97.9 F 02/25/18 06:55 Pulse Rate 74 02/25/18 06:55 Respiratory Rate 18 02/25/18 06:55 Blood Pressure 104/69 02/25/18 06:55 O2 Sat by Pulse Oximetry (%) 98 02/23/18 21:00 Constitutional: Yes: No Distress, Calm Cardiovascular: Yes: Regular Rate and Rhythm Respiratory: Yes: Regular Gastrointestinal: Yes: Normal Bowel Sounds, Soft Genitourinary: Yes: WNL Musculoskeletal: Yes: WNL Extremities: Yes: WNL Edema: No Neurological: Yes: Alert Labs: CBC, BMP 02/25/18 06:00 02/25/18 06:00 INR, PTT INR 1.23 (0.83-1.09) H 02/24/18 06:00 Problem List - Problems (1) Acute gallstone pancreatitis Code(s): K85.10 - BILIARY ACUTE PANCREATITIS WITHOUT NECROSIS OR INFECTION Assessment/Plan 27 y.o. female presenting with RUQ pain and nausea, elevated LFTs/amylase/ lipase with evidence of multiple gallstones, distended GB and mild CBD distension Gallstone Pancreatitis -- continue antibiotics for now -- MRCP ordered -- monitor LFTs, Lipase pt currently comfortable
[2018-02-25] MEDS: PANTOPRAZOLE SODIUM 40 MG VIAL IVPUSH SCH (12:07)
--- NOTE | 2018-02-25 12:22 | PN ---
Physical Exam: SUBJECTIVE: Patient seen and examined. She denies pain, tolerating clear liquid diet tomorrow. Plan is for ERCP tomorrow. OBJECTIVE: Vital Signs Period Temp Pulse Resp BP Sys/Boykin Pulse Ox Last 24 Hr 97.4 F-98.5 F 58-74 18-20 104-119/63-69 GENERAL: Awake, alert, and fully oriented, in no acute distress. HEAD: Normal with no signs of trauma. EYES: Pupils equal, round and reactive to light, extraocular movements intact, sclera anicteric, conjunctiva clear. No lid lag. EARS, NOSE, THROAT: Nares patent, oropharynx clear without exudates. Moist mucous membranes. NECK: Normal range of motion, supple without lymphadenopathy, JVD, or masses. LUNGS: Breath sounds equal, clear to auscultation bilaterally. No wheezes, and no crackles. No accessory muscle use. HEART: Regular rate and rhythm, normal S1 and S2 without murmur, rub or gallop. ABDOMEN: Soft, TTP in epigastric region, not distended, normoactive bowel sounds , no guarding, no rebound, no masses. No hepatomegaly or splenomegaly. MUSCULOSKELETAL: Normal range of motion at all joints. No bony deformities or tenderness. No CVA tenderness. UPPER EXTREMITIES: 2+ pulses, warm, well-perfused. No cyanosis. No clubbing. No peripheral edema. LOWER EXTREMITIES: 2+ pulses, warm, well-perfused. No calf tenderness. No peripheral edema. NEUROLOGICAL: No facial droop, tongue midline, normal speech PSYCHIATRIC: Cooperative. Good eye contact. Appropriate mood and affect. SKIN: Warm, dry, normal turgor, no rashes or lesions noted, normal capillary refill. Laboratory Results - last 24 hr 02/25/18 02/25/18 02/25/18 06:00 06:00 06:20 WBC 4.2 RBC 3.61 Hgb 11.3 Hct 33.2 MCV 91.9 MCH 31.2 MCHC 33.9 RDW 14.2 Plt Count 152 MPV 8.6 Sodium 141 Potassium 3.2 L Chloride 109 H Carbon Dioxide 21 Anion Gap 11 BUN 5 L Creatinine 0.5 L Creat Clearance w eGFR > 60 POC Glucometer 79 Random Glucose 66 L Calcium 8.1 L Total Bilirubin 0.8 AST 21 ALT 85 H Alkaline Phosphatase 103 Total Protein 6.5 Albumin 3.6 Active Medications Generic Name Dose Route Start Last Admin Trade Name Freq PRN Reason Stop Dose Admin Sodium Chloride 1,000 mls @ 100 mls/hr 02/23/18 15:45 02/25/18 02:15 Normal Saline - IV 100 mls/hr ASDIR ERVIN Administration Piperacillin Sod/Tazobactam 50 mls @ 100 mls/hr 02/24/18 02:00 02/25/18 12:07 Sod 2.25 gm/ Dextrose IVPB 100 mls/hr Q8H-IV ERVIN Administration Protocol Morphine Sulfate 0.5 mg 02/24/18 11:17 Morphine Injection - IVPUSH Q4H PRN PAIN LEVEL 6-10 Pantoprazole Sodium 40 mg 02/24/18 11:30 02/25/18 12:07 Protonix Iv IVPUSH 40 mg DAILY ERVIN Administration Abdominal US - Over distended gallbladder with multiple gallstones and without wall thickening or pericholecystic free fluid. Further evaluation is needed to rule out acute cholecystitis. Dilated common bile duct measuring 1.2 cm in diameter and mild dilatation of the central intrahepatic bile ducts. There is suggestion of debris layering within the common bile duct without definite evidence of a stone. Correlation with MRCP is recommended. Borderline dilatation of the pancreatic duct. ASSESSMENT/PLAN: 27 year old female with a PMH significant for pre eclampisa (resolved), presented to the ED with for days of RUQ pain and one episode of vomiting. Abdominal US showed multiple gallstones and a dilated CBD. She was admitted for surgical and GI consult. Pancreatitis/Cholelithiasis - LFTs trending down AST 21, ALT 85 today - Elevated lipase of 25,806 and amaylase >1300 - Seen by ID - Zosyn 2.25 mg IVP q8H - Monitor glucose - D5 1/2 NS - Seen by GI Dr. Salazar - ERCP pending to extract CBD stones before she can undergo cholecystectomy. - May need a stent and repeat ERCP if the stones are large - Clear liquid diet Hypokalemia - 3.2 today - 20 meq PO - Repeat BMP ordered - Add KCL to IVF - Monitor BMP Prophylaxis - DVT: OOB FEN - D5 1/2 NS with 20 meq kcl @ 75 cc/hr - Replete as needed - Clear liquid diet Disp: Requires inpatient treatment. FULL CODE Visit type - Emergency Visit Emergency Visit: No - New Patient This patient is new to me today: No - Critical Care Critical Care patient: No
[2018-02-25 14:12] LABS: ANION GAP 10 MMOL/L (8-16); BLOOD UREA NITROGEN 3 mg/dL (7-18); CHLORIDE 107 mmol/L (98-107); CO2 24 mmol/L (21-32); CREATININE 0.8 mg/dL (0.55-1.3); GLUCOSE,RANDOM 136 mg/dL (74-106); SODIUM 141 mmol/L (136-145)
[2018-02-25 14:14] LABS: POTASSIUM 2.9 mmol/L (3.5-5.1)
[2018-02-25] MEDS: D5-1/2NS+20 MEQ KCL - 20 MEQ/1,000 ML INFUS.BAG IV SCH ×2 (15:55→22:53)
[2018-02-25] MEDS: KCL 10 MEQ IVPB 10 MEQ/100 ML INFUS.BAG IVPB SCH ×3 (15:58→22:53)
--- NOTE | 2018-02-25 17:10 | PN ---
Progress Note (short form) - Note Progress Note: surgery pt seen and examined. full consult dictated. 27f admitted for biliary pancreatitis. MRCP done 02/23/18 but no reading. lfts and amylase/lipase markedly improved. GI to possibly to ERCP tomorrow. cholecystectomy this admission pending ERCP and clinical course.
--- NOTE | 2018-02-25 17:54 | CONS ---
DATE OF CONSULTATION: 02/25/2018 REASON FOR CONSULTATION: Cholelithiasis, pancreatitis. This is a consultation at the request of the emergency room physician. The patient was subsequently seen and examined on the medical floor; is being seen and examined there. BRIEF HISTORY: This is a 27-year-old female who presents to [facility] Emergency Room with right upper quadrant abdominal pain. She was noted to have markedly elevated liver function tests as well as amylase and lipase. She had an ultrasound of her gallbladder done, which showed gallstones and a very dilated common bile duct at 1.2 cm in size. She then went for an MRCP the same day, on February 23, which has yet to have been read by a radiologist. On cursory review, the duct does appear to be dilated and there is possibly something distally located within it. The patient was admitted and kept n.p.o., then started on clear liquid diet, which she has been tolerating. She has been placed on Zosyn antibiotic by the Infectious Disease Service. She is having a bowel movement and she is . PAST MEDICAL HISTORY: Otherwise negative. PAST SURGICAL HISTORY: Significant for a section. She has no known drug allergies. HOME MEDICATIONS: vitamins. SOCIAL HISTORY: Negative for alcohol, negative for tobacco. REVIEW OF SYSTEMS: General: She denies fatigue or malaise. Cardiac: She denies chest pain or palpitations. Respiratory: She denies shortness of breath or wheeze. Gastrointestinal: As in HPI. Genitourinary: She denies dysuria. Musculoskeletal: She denies joint pain, joint swelling. Psychiatric: She denies anxiety, depression, or hearing voices. PHYSICAL EXAMINATION: General: This is a well-developed, well-nourished 27-year-old female in no distress. Vital Signs: She is afebrile. Her vital signs are stable. HEENT: Her head is normocephalic. Sclerae are anicteric. Neck: Supple. Chest: Clear. Abdomen: Soft, currently nontender. She has no obvious hernias. Extremities: No edema. REVIEW OF LABORATORY: Her white blood cell count is normal at 4.2 and has been normal throughout the admission. Her chemistries show a potassium of 2.9. Bilirubin is now normal at 0.8; it was 1.8 on admission. Her AST has gone from 179 to 21. Her ALT has gone from 184 to 85. Her alkaline phosphatase has dropped from 118 to 103. Her amylase was 1300, now 662. Her lipase was 25,000, now 2000. Her MRCP has not been read. ASSESSMENT: A 27-year-old female who presented with abdominal pain, elevated liver function tests, elevated amylase, elevated lipase, ultrasound showing a dilated common bile duct and gallstones. She has an MRCP, which is pending results. Clinically, this is biliary pancreatitis; it is unclear if she has passed her duct. The MRCP appeared to show, still, a dilated duct, but has not been read by radiologist and it is unclear if there are stones in it. Also, her rapid improvement in liver function tests suggests possible passage of stone. At this point, the GI Service is managing her care and trying to determine if she would benefit from an ERCP. Once they make the determination in whether she has ERCP or her liver function tests completely normalize, would recommend cholecystectomy this admission prior to discharge. At this point, I will be following remotely until the possibility of common bile duct stone has been addressed and pancreatitis has resolved. DO DERIC ANDERSON/[id number]
[2018-02-26] MEDS ORDERED: DEXTROSE 5%-WATER - 50 ML IVPB ONE ×4 (01:31→23:37)
[2018-02-26] MEDS ORDERED: PIPERACILLIN/TAZOBACTAM 2.25 GM VIAL IVPB ONE ×4 (01:31→23:36)
[2018-02-26] MEDS: PIPERACILLIN/TAZOB 2.25 GM 2.25 GM in DEXTROSE 5%-WATER - 50 ML IVPB SCH ×3 (01:43→18:12)
[2018-02-26 06:30] LABS: HEMATOCRIT 32.2 % (32.4-45.2); HEMOGLOBIN 10.8 GM/dL (10.7-15.3); MCH 31.1 pg (25.7-33.7); MCHC 33.7 g/dl (32.0-36.0); MEAN CELL VOLUME 92.1 fl (80-96); MEAN PLT VOLUME 8.5 fl (7.5-11.1); PLATELET COUNT 150 K/MM3 (134-434); RBC 3.49 M/mm3 (3.60-5.2); WHITE BLOOD COUNT 3.8 K/mm3 (4.0-10.0)
[2018-02-26 07:25] LABS: ANION GAP 6 MMOL/L (8-16); CALCIUM 7.9 mg/dL (8.5-10.1); CHLORIDE 109 mmol/L (98-107); CO2 26 mmol/L (21-32); CREATININE 0.4 mg/dL (0.55-1.3); GLUCOSE,RANDOM 96 mg/dL (74-106); POTASSIUM 3.3 mmol/L (3.5-5.1); SODIUM 141 mmol/L (136-145)
[2018-02-26 08:12] LABS: BLOOD UREA NITROGEN 2 mg/dL (7-18)
[2018-02-26] MEDS: PANTOPRAZOLE SODIUM 40 MG VIAL IVPUSH SCH (09:42)
--- NOTE | 2018-02-26 09:54 | PN ---
Physical Exam: SUBJECTIVE: Patient seen and examined, denies pain. Reports she has been eating well, but has been NPO since midnight, ERCP today. Residual stone fragments were extracted from the CBD. OBJECTIVE: Vital Signs Period Temp Pulse Resp BP Sys/Boykin Pulse Ox Last 24 Hr 97.6 F-98.8 F 54-79 16-18 100-124/61-77 GENERAL: Awake, alert, and fully oriented, in no acute distress. HEAD: Normal with no signs of trauma. EYES: Pupils equal, round and reactive to light, extraocular movements intact, sclera anicteric, conjunctiva clear. No lid lag. EARS, NOSE, THROAT: Nares patent, oropharynx clear without exudates. Moist mucous membranes. NECK: Normal range of motion, supple without lymphadenopathy, JVD, or masses. LUNGS: Breath sounds equal, clear to auscultation bilaterally. No wheezes, and no crackles. No accessory muscle use. HEART: Regular rate and rhythm, normal S1 and S2 without murmur, rub or gallop. ABDOMEN: Soft, TTP in epigastric region, not distended, normoactive bowel sounds , no guarding, no rebound, no masses. No hepatomegaly or splenomegaly. MUSCULOSKELETAL: Normal range of motion at all joints. No bony deformities or tenderness. No CVA tenderness. UPPER EXTREMITIES: 2+ pulses, warm, well-perfused. No cyanosis. No clubbing. No peripheral edema. LOWER EXTREMITIES: 2+ pulses, warm, well-perfused. No calf tenderness. No peripheral edema. NEUROLOGICAL: No facial droop, tongue midline, normal speech PSYCHIATRIC: Cooperative. Good eye contact. Appropriate mood and affect. SKIN: Warm, dry, normal turgor, no rashes or lesions noted, normal capillary refill. Laboratory Results - last 24 hr 02/25/18 02/26/18 02/26/18 13:15 06:00 06:00 WBC 3.8 L RBC 3.49 L Hgb 10.8 Hct 32.2 L MCV 92.1 MCH 31.1 MCHC 33.7 RDW 14.0 Plt Count 150 MPV 8.5 Sodium 141 141 Potassium 2.9 L* 3.3 L Chloride 107 109 H Carbon Dioxide 24 26 Anion Gap 10 6 L BUN 3 L 2 L* Creatinine 0.8 0.4 L Creat Clearance w eGFR > 60 > 60 Random Glucose 136 H 96 Calcium 8.0 L 7.9 L Active Medications Generic Name Dose Route Start Last Admin Trade Name Freanjum PRN Reason Stop Dose Admin Piperacillin Sod/Tazobactam 50 mls @ 100 mls/hr 02/24/18 02:00 02/26/18 09:42 Sod 2.25 gm/ Dextrose IVPB 100 mls/hr Q8H-IV ERVIN Administration Protocol Potassium Chloride/Dextrose/Sod Cl 20 meq in 1,000 mls @ 75 mls/hr 02/25/18 12 :30 02/25/18 22:53 D5-1/2ns+20 Meq Kcl - IV 75 mls/hr ASDIR ERVIN Administration Morphine Sulfate 0.5 mg 02/24/18 11:17 Morphine Injection - IVPUSH Q4H PRN PAIN LEVEL 6-10 Pantoprazole Sodium 40 mg 02/24/18 11:30 02/26/18 09:42 Protonix Iv IVPUSH 40 mg DAILY ERVIN Administration ASSESSMENT/PLAN: Abdominal US - Over distended gallbladder with multiple gallstones and without wall thickening or pericholecystic free fluid. Further evaluation is needed to rule out acute cholecystitis. Dilated common bile duct measuring 1.2 cm in diameter and mild dilatation of the central intrahepatic bile ducts. There is suggestion of debris layering within the common bile duct without definite evidence of a stone. Correlation with MRCP is recommended. Borderline dilatation of the pancreatic duct. ASSESSMENT/PLAN: 27 year old female with a PMH significant for pre eclampisa (resolved), presented to the ED with for days of RUQ pain and one episode of vomiting. Abdominal US showed multiple gallstones and a dilated CBD. She was admitted for surgical and GI consult. Pancreatitis/Cholelithiasis - ERCP today; residual stone fragments were extracted from the CBD - If pancreatitis doesn't ensue then can proceed with lap choly possibly Monday - LFTs trending down AST 21, ALT 85 - Elevated lipase of 25,806 and amaylase >1300 - Seen by ID - Zosyn 2.25 mg IVP q8H - Monitor glucose - D5 1/2 NS - Seen by GI Dr. Salazar - May need a stent and repeat ERCP if the stones are large - Clear liquid diet Hypokalemia - 3.3 today - 20 meq PO now - Received 3 runs of K yesterday after K was 2.9, improved to - Repeat BMP ordered Prophylaxis - DVT: OOB FEN - D/c ivf, PO intake adequate - Replete as needed - Clear liquid diet Disp: Requires inpatient treatment. FULL CODE Visit type - Emergency Visit Emergency Visit: No - New Patient This patient is new to me today: No - Critical Care Critical Care patient: No
[2018-02-26] MEDS ORDERED: POTASSIUM CHLORIDE TABS 20 MEQ TABLET.ER (FP) PO ONE ×2 (11:00→18:15)
[2018-02-26] MEDS ORDERED: INDOMETHACIN 50 MG RECTAL SUPPOSITORY PR ONE ×2 (11:12→11:30)
[2018-02-26] MEDS ORDERED: IOHEXOL 300 MG/ML INFUS..BTL IV ONE (11:40)
--- NOTE | 2018-02-26 11:59 | PN ---
Progress Note (short form) - Note Progress Note: GI Procedure NOte: Please see ERCP. Residual stone fragments were extracted from the CBD. If pancreatitis doesn't ensue then can proceed with lap choly. Problem List - Problems (1) Acute gallstone pancreatitis Code(s): K85.10 - BILIARY ACUTE PANCREATITIS WITHOUT NECROSIS OR INFECTION (2) Epigastric abdominal pain Code(s): R10.13 - EPIGASTRIC PAIN (3) Status post repeat low transverse section Code(s): Z98.891 - HISTORY OF UTERINE SCAR FROM PREVIOUS SURGERY
[2018-02-26] MEDS ORDERED: LACTATED RINGERS SOLUTION 1,000 ML/1,000 ML INFUS.BAG IV SCH ×2 (12:15→18:30)
--- NOTE | 2018-02-26 13:47 | PN ---
Progress Note, Physician History of Present Illness: doing well post ercp now - Current Medication List Current Medications: Active Medications Piperacillin Sod/Tazobactam (Sod 2.25 gm/ Dextrose) 50 mls @ 100 mls/hr IVPB Q8H-IV ERVIN; Protocol Last Admin: 02/26/18 09:42 Dose: 100 mls/hr Lactated Ringer's (Lactated Ringers Solution) 1,000 ml in 1,000 mls @ 250 mls/ hr IV ASDIR ERVIN Stop: 02/26/18 18:30 Last Admin: 02/26/18 13:19 Dose: 250 mls/hr Lactated Ringer's (Lactated Ringers Solution) 1,000 ml in 1,000 mls @ 200 mls/ hr IV ASDIR ERVIN Stop: 02/27/18 00:30 Lactated Ringer's (Lactated Ringers Solution) 1,000 ml in 1,000 mls @ 175 mls/ hr IV ASDIR ERVIN Stop: 02/27/18 12:30 Lactated Ringer's (Lactated Ringers Solution) 1,000 ml in 1,000 mls @ 150 mls/ hr IV ASDIR ERVIN Morphine Sulfate (Morphine Injection -) 0.5 mg IVPUSH Q4H PRN PRN Reason: PAIN LEVEL 6-10 Pantoprazole Sodium (Protonix Iv) 40 mg IVPUSH DAILY [facility] Last Admin: 02/26/18 09:42 Dose: 40 mg - Objective Vital Signs: Vital Signs Temperature 98.3 F 02/26/18 11:57 Pulse Rate 56 L 02/26/18 12:48 Respiratory Rate 18 02/26/18 12:48 Blood Pressure 132/82 02/26/18 12:48 O2 Sat by Pulse Oximetry (%) 100 02/26/18 12:48 Constitutional: Yes: No Distress, Calm Cardiovascular: Yes: Regular Rate and Rhythm Respiratory: Yes: Regular, CTA Bilaterally Gastrointestinal: Yes: Normal Bowel Sounds, Soft Musculoskeletal: Yes: WNL Extremities: Yes: WNL Neurological: Yes: Alert, Oriented Psychiatric: Yes: Alert, Oriented Labs: CBC, BMP 02/26/18 06:00 02/26/18 06:00 INR, PTT INR 1.23 (0.83-1.09) H 02/24/18 06:00 Assessment/Plan Problem List - Problems (1) Acute gallstone pancreatitis Code(s): K85.10 - BILIARY ACUTE PANCREATITIS WITHOUT NECROSIS OR INFECTION Assessment/Plan continue current mgmt patient for surgery probably on wed rest as per the team
[2018-02-27] MEDS ORDERED: LACTATED RINGERS SOLUTION 1,000 ML/1,000 ML INFUS.BAG IV SCH ×2 (00:30→12:30)
[2018-02-27] MEDS: PIPERACILLIN/TAZOB 2.25 GM 2.25 GM in DEXTROSE 5%-WATER - 50 ML IVPB SCH ×3 (01:18→17:12)
[2018-02-27 07:02] LABS: BASO % 0.2 % (0-2.0); EOS % 1.4 % (0-4.5); HEMATOCRIT 31.4 % (32.4-45.2); HEMOGLOBIN 10.6 GM/dL (10.7-15.3); LYMPH % 39.1 % (8-40); MCH 30.6 pg (25.7-33.7); MCHC 33.7 g/dl (32.0-36.0); MEAN CELL VOLUME 90.9 fl (80-96); MEAN PLT VOLUME 8.7 fl (7.5-11.1); MONO % 8.3 % (3.8-10.2); PLATELET COUNT 141 K/MM3 (134-434); RBC 3.45 M/mm3 (3.60-5.2); WHITE BLOOD COUNT 4.9 K/mm3 (4.0-10.0)
[2018-02-27 07:31] LABS: AMYLASE 65 U/L (25-115); BILIRUBIN,DIRECT 0.2 mg/dL (0.0-0.2); LIPASE 262 U/L (73-393)
[2018-02-27 07:32] LABS: ALBUMIN 3.3 g/dl (3.4-5.0); ALK PHOS 81 U/L (45-117); ANION GAP 8 MMOL/L (8-16); BILIRUBIN,TOTAL 0.6 mg/dL (0.2-1); BLOOD UREA NITROGEN 3 mg/dL (7-18); CALCIUM 8.1 mg/dL (8.5-10.1); CHLORIDE 107 mmol/L (98-107); CO2 28 mmol/L (21-32); CREATININE 0.4 mg/dL (0.55-1.3); GLUCOSE,RANDOM 79 mg/dL (74-106); POTASSIUM 3.2 mmol/L (3.5-5.1); SGOT/AST 17 U/L (15-37); SGPT/ALT 48 U/L (13-61); SODIUM 143 mmol/L (136-145); TOT PROT 5.8 g/dl (6.4-8.2)
[2018-02-27] MEDS ORDERED: PIPERACILLIN/TAZOBACTAM 2.25 GM VIAL IVPB ONE ×2 (08:43→14:39)
[2018-02-27] MEDS ORDERED: DEXTROSE 5%-WATER - 50 ML IVPB ONE ×2 (08:43→14:39)
[2018-02-27] MEDS ORDERED: POTASSIUM CHLORIDE TABS 10 MEQ TABLET.ER (FP) PO ONE (09:15)
[2018-02-27] MEDS: PANTOPRAZOLE SODIUM 40 MG VIAL IVPUSH SCH (09:24)
[2018-02-27] MEDS ORDERED: KCL 10 MEQ IVPB 10 MEQ/100 ML INFUS.BAG IVPB SCH (10:45)
--- NOTE | 2018-02-27 10:46 | PN ---
Physical Exam: SUBJECTIVE: Patient seen and examined. ERCP yesterday. NPO, cholecystectomy scheduled for tomorrow. Denies pain. OBJECTIVE: Vital Signs Period Temp Pulse Resp BP Sys/Boykin Pulse Ox Last 24 Hr 98.3 F-98.6 F 48-72 14-20 111-132/71-87 98-100 GENERAL: Awake, alert, and fully oriented, in no acute distress. HEAD: Normal with no signs of trauma. EYES: Pupils equal, round and reactive to light, extraocular movements intact, sclera anicteric, conjunctiva clear. No lid lag. EARS, NOSE, THROAT: Nares patent, oropharynx clear without exudates. Moist mucous membranes. NECK: Normal range of motion, supple without lymphadenopathy, JVD, or masses. LUNGS: Breath sounds equal, clear to auscultation bilaterally. No wheezes, and no crackles. No accessory muscle use. HEART: Regular rate and rhythm, normal S1 and S2 without murmur, rub or gallop. ABDOMEN: Soft, TTP in epigastric region, not distended, normoactive bowel sounds , no guarding, no rebound, no masses. No hepatomegaly or splenomegaly. MUSCULOSKELETAL: Normal range of motion at all joints. No bony deformities or tenderness. No CVA tenderness. UPPER EXTREMITIES: 2+ pulses, warm, well-perfused. No cyanosis. No clubbing. No peripheral edema. LOWER EXTREMITIES: 2+ pulses, warm, well-perfused. No calf tenderness. No peripheral edema. NEUROLOGICAL: No facial droop, tongue midline, normal speech PSYCHIATRIC: Cooperative. Good eye contact. Appropriate mood and affect. SKIN: Warm, dry, normal turgor, no rashes or lesions noted, normal capillary refill. Laboratory Results - last 24 hr 02/27/18 02/27/18 02/27/18 06:00 06:00 06:00 WBC 4.9 RBC 3.45 L Hgb 10.6 L Hct 31.4 L MCV 90.9 MCH 30.6 MCHC 33.7 RDW 14.0 Plt Count 141 MPV 8.7 Absolute Neuts (auto) 2.5 Neutrophils % 51.0 D Lymphocytes % 39.1 D Monocytes % 8.3 D Eosinophils % 1.4 D Basophils % 0.2 Nucleated RBC % 0 Sodium 143 Potassium 3.2 L Chloride 107 Carbon Dioxide 28 Anion Gap 8 BUN 3 L Creatinine 0.4 L Creat Clearance w eGFR > 60 Random Glucose 79 Calcium 8.1 L Total Bilirubin 0.6 Direct Bilirubin 0.2 AST 17 ALT 48 Alkaline Phosphatase 81 C-Reactive Protein < 0.3 Total Protein 5.8 L Albumin 3.3 L Total Amylase 65 Lipase 262 Active Medications Generic Name Dose Route Start Last Admin Trade Name Freq PRN Reason Stop Dose Admin Piperacillin Sod/Tazobactam 50 mls @ 100 mls/hr 02/24/18 02:00 02/27/18 09:24 Sod 2.25 gm/ Dextrose IVPB 100 mls/hr Q8H-IV ERVIN Administration Protocol Potassium Chloride/Dextrose/Sod Cl 20 meq in 1,000 mls @ 100 mls/hr 02/27/18 10:45 D5-1/2ns+20 Meq Kcl - IV ASDIR ERVIN Potassium Chloride 10 meq in 100 mls @ 100 mls/hr 02/27/18 10:45 Potassium Chloride 10 Meq Premix Ivpb - IVPB 02/27/18 11:44 Q60M ERVIN Morphine Sulfate 0.5 mg 02/24/18 11:17 Morphine Injection - IVPUSH Q4H PRN PAIN LEVEL 6-10 Pantoprazole Sodium 40 mg 02/24/18 11:30 02/27/18 09:24 Protonix Iv IVPUSH 40 mg DAILY ERVIN Administration Abdominal US - Over distended gallbladder with multiple gallstones and without wall thickening or pericholecystic free fluid. Further evaluation is needed to rule out acute cholecystitis. Dilated common bile duct measuring 1.2 cm in diameter and mild dilatation of the central intrahepatic bile ducts. There is suggestion of debris layering within the common bile duct without definite evidence of a stone. Correlation with MRCP is recommended. Borderline dilatation of the pancreatic duct. ASSESSMENT/PLAN: 27 year old female with a PMH significant for pre eclampisa (resolved), presented to the ED with for days of RUQ pain and one episode of vomiting. Abdominal US showed multiple gallstones and a dilated CBD. She was admitted for surgical and GI consult. Pancreatitis/Cholelithiasis - ERCP yesterday day; residual stone fragments were extracted from the CBD - If pancreatitis doesn't ensue then can proceed with lap choly tomorrow - Elevated lipase of 25,806 and amaylase >1300 on admission - LFTs now WNL AST 17, ALT 48 - Seen by ID - Zosyn 2.25 mg IVP q8H - Monitor glucose - D5 1/2 NS with 20 meq K - Seen by GI Dr. Salazar - May need a stent and repeat ERCP if the stones are large Hypokalemia - 3.2 today - 1 run of K now - Repeat K orderd - Received 3 runs of K yesterday after K was 2.9, improved to - Repeat BMP ordered Prophylaxis - DVT: OOB FEN - D5 1/2 NS with 20 meq K @ 100 cc/hr - Replete as needed - NPO Disp: Requires inpatient treatment. FULL CODE Visit type - Emergency Visit Emergency Visit: No - New Patient This patient is new to me today: No - Critical Care Critical Care patient: No
[2018-02-27] MEDS: D5-1/2NS+20 MEQ KCL - 20 MEQ/1,000 ML INFUS.BAG IV SCH ×2 (11:33→23:12)
--- NOTE | 2018-02-27 12:50 | PN ---
Progress Note, Physician History of Present Illness: patient stable no new issues awaiting surgery - Current Medication List Current Medications: Active Medications Piperacillin Sod/Tazobactam (Sod 2.25 gm/ Dextrose) 50 mls @ 100 mls/hr IVPB Q8H-IV ERVIN; Protocol Last Admin: 02/27/18 09:24 Dose: 100 mls/hr Potassium Chloride/Dextrose/Sod Cl (D5-1/2ns+20 Meq Kcl -) 20 meq in 1,000 mls @ 100 mls/hr IV ASDIR ERVIN Last Admin: 02/27/18 11:33 Dose: 100 mls/hr Morphine Sulfate (Morphine Injection -) 0.5 mg IVPUSH Q4H PRN PRN Reason: PAIN LEVEL 6-10 Pantoprazole Sodium (Protonix Iv) 40 mg IVPUSH DAILY [facility] Last Admin: 02/27/18 09:24 Dose: 40 mg - Objective Vital Signs: Vital Signs Temperature 98.6 F 02/27/18 09:22 Pulse Rate 57 L 02/27/18 09:22 Respiratory Rate 18 02/27/18 09:22 Blood Pressure 115/74 02/27/18 09:22 O2 Sat by Pulse Oximetry (%) 100 02/27/18 09:00 Constitutional: Yes: No Distress, Calm Cardiovascular: Yes: Regular Rate and Rhythm Respiratory: Yes: Regular, CTA Bilaterally Gastrointestinal: Yes: Normal Bowel Sounds, Soft Musculoskeletal: Yes: WNL Extremities: Yes: WNL Neurological: Yes: Alert, Oriented Psychiatric: Yes: Alert, Oriented Labs: CBC, BMP 02/27/18 06:00 02/27/18 06:00 INR, PTT INR 1.23 (0.83-1.09) H 02/24/18 06:00 Assessment/Plan Problem List - Problems (1) Acute gallstone pancreatitis Code(s): K85.10 - BILIARY ACUTE PANCREATITIS WITHOUT NECROSIS OR INFECTION 2 electrolyte imbalance Assessment/Plan continue current mgmt patient for surgery probably on wed rest as per the team replace potassium
--- NOTE | 2018-02-27 14:09 | PN ---
Progress Note (short form) - Note Progress Note: surgery pt seen and examined. feels well. no pain afebrile abd- soft, nt plan- choledocholithiasis, cholelithiasis s/p ercp. plans for cholecystectomy tomorrow.
--- NOTE | 2018-02-27 18:11 | PN ---
GI Progress Note Subjective: GI NOte: No pain or vomiting. LFTs and amylase,lipase WNL. No evidence of residual or post-ERCP pancreatitis. Very hungry. - Objective Vital Signs: Vital Signs Temperature 98.2 F 02/27/18 17:39 Pulse Rate 62 02/27/18 17:39 Respiratory Rate 18 02/27/18 17:39 Blood Pressure 101/58 L 02/27/18 17:39 O2 Sat by Pulse Oximetry (%) 100 02/27/18 09:00 Laboratory Tests 02/27/18 02/27/18 02/27/18 06:00 06:00 06:00 WBC 4.9 Total Bilirubin 0.6 Direct Bilirubin 0.2 AST 17 ALT 48 Alkaline Phosphatase 81 C-Reactive Protein < 0.3 Total Amylase 65 Lipase 262 Constitutional: No Distress ...Auscultate: Yes: Normoactive Bowel Sounds ...Palpate: Yes: Soft, Other (nontender) Labs: CBC, BMP 02/27/18 06:00 02/27/18 15:15 INR, PTT INR 1.23 (0.83-1.09) H 02/24/18 06:00 Assessment/Plan Biliary pancreatitis resolved Day 1 s/p ERCP and stable Clear liquids tonight For lap choly tomorrow. Problem List - Problems (1) Acute gallstone pancreatitis Code(s): K85.10 - BILIARY ACUTE PANCREATITIS WITHOUT NECROSIS OR INFECTION (2) Epigastric abdominal pain Code(s): R10.13 - EPIGASTRIC PAIN (3) Status post repeat low transverse section Code(s): Z98.891 - HISTORY OF UTERINE SCAR FROM PREVIOUS SURGERY
[2018-02-27] MEDS: KCL 10 MEQ IVPB 10 MEQ/100 ML INFUS.BAG IVPB SCH ×3 (18:14→23:11)
--- NOTE | 2018-02-27 19:30 | PN ---
GI Progress Note Subjective: No acute events S/P ERCP yesterday with stone fragment extraction Denies abdominal pain - Objective Vital Signs: Vital Signs Temperature 98.2 F 02/27/18 17:39 Pulse Rate 62 02/27/18 17:39 Respiratory Rate 18 02/27/18 17:39 Blood Pressure 101/58 L 02/27/18 17:39 O2 Sat by Pulse Oximetry (%) 100 02/27/18 09:00 Constitutional: Calm Eyes: No: Sclera Icterus Cardiovascular: Yes: Regular Rate and Rhythm Respiratory: Yes: CTA Bilaterally Gastrointestinal Inspection: No: Distention ...Auscultate: Yes: Normoactive Bowel Sounds ...Palpate: No: Tenderness Edema: No Neurological: Yes: Alert Labs: CBC, BMP 02/27/18 06:00 02/27/18 15:15 INR, PTT INR 1.23 (0.83-1.09) H 02/24/18 06:00 Hepatic Panel Total Bilirubin 0.6 mg/dL (0.2-1) 02/27/18 06:00 Direct Bilirubin 0.2 mg/dL (0.0-0.2) 02/27/18 06:00 AST 17 U/L (15-37) 02/27/18 06:00 ALT 48 U/L (13-61) 02/27/18 06:00 Alkaline Phosphatase 81 U/L (45-117) 02/27/18 06:00 Albumin 3.3 g/dl (3.4-5.0) L 02/27/18 06:00 Problem List - Problems (1) Acute gallstone pancreatitis Assessment/Plan: Clinically improved and now s/p ERCP For lap Inga tomorrow Correct lytes per primary team d/c'd protonix Code(s): K85.10 - BILIARY ACUTE PANCREATITIS WITHOUT NECROSIS OR INFECTION
[2018-02-28] MEDS ORDERED: ceFAZolin SODIUM 1 GM VIAL IVPB ONE
[2018-02-28] MEDS ORDERED: BUPIVACAINE HCL/PF (5 MG/ML) 30 ML VIAL IJ ONE
[2018-02-28] MEDS ORDERED: DEXTROSE 5%-WATER - 50 ML IVPB ONE ×2 (01:30→08:17)
[2018-02-28] MEDS ORDERED: PIPERACILLIN/TAZOBACTAM 2.25 GM VIAL IVPB ONE ×2 (01:30→08:16)
[2018-02-28] MEDS: PIPERACILLIN/TAZOB 2.25 GM 2.25 GM in DEXTROSE 5%-WATER - 50 ML IVPB SCH ×2 (02:10→09:05)
[2018-02-28 07:32] LABS: HEMATOCRIT 32.8 % (32.4-45.2); HEMOGLOBIN 11.9 GM/dL (10.7-15.3); MCH 32.7 pg (25.7-33.7); MCHC 36.3 g/dl (32.0-36.0); MEAN CELL VOLUME 89.9 fl (80-96); MEAN PLT VOLUME 8.7 fl (7.5-11.1); PLATELET COUNT 178 K/MM3 (134-434); RBC 3.64 M/mm3 (3.60-5.2); RDW 13.7 % (11.6-15.6); WHITE BLOOD COUNT 3.5 K/mm3 (4.0-10.0)
[2018-02-28] MEDS ORDERED: PROPOFOL 20 ML ONE ×3 (11:02→17:13)
[2018-02-28] MEDS ORDERED: LIDOCAINE HCL/PF 2% SDV 5ML VIAL ONE (11:02)
[2018-02-28] MEDS ORDERED: MIDAZOLAM HCL 2 MG/2 ML SINGLE DOSE VIAL ONE (11:02)
[2018-02-28] MEDS ORDERED: DEXAMETHASONE SOD PHOSPHATE 4 MG/1 ML VIAL ONE (11:02)
[2018-02-28] MEDS ORDERED: fentaNYL CITRATE 250 MCG/5 ML VIAL ONE (11:02)
[2018-02-28] MEDS ORDERED: ROCURONIUM BROMIDE 50 MG/5 ML VIAL ONE ×4 (11:02→16:25)
[2018-02-28] MEDS ORDERED: BUPIVACAINE HCL/PF 0.5% (5MG/ML) 10 ML VIAL ONE (11:04)
[2018-02-28] MEDS ORDERED: DESFLURANE GAS 240 ML BOTTLE IH ONE (11:07)
[2018-02-28] MEDS ORDERED: oxyCODONE HCL 5 MG TABLET PO PRN ×2 (11:09)
[2018-02-28] MEDS ORDERED: ONDANSETRON 4 MG/2 ML VIAL IVPUSH PRN ×3 (11:09→18:44)
[2018-02-28] MEDS ORDERED: LACTATED RINGERS SOLUTION 1,000 ML IV SCH ×2 (11:15→18:44)
--- NOTE | 2018-02-28 11:43 | PN ---
Progress Note, Physician History of Present Illness: patient stable no issues patient for or today abd pain better - Current Medication List Current Medications: Active Medications Fentanyl (Sublimaze Injection -) 50 mcg IVPUSH [id number] PRN PRN Reason: PAIN-PACU ORDER X 4 DOSES ONLY Piperacillin Sod/Tazobactam (Sod 2.25 gm/ Dextrose) 50 mls @ 100 mls/hr IVPB Q8H-IV ERVIN; Protocol Last Admin: 02/28/18 09:05 Dose: 100 mls/hr Potassium Chloride/Dextrose/Sod Cl (D5-1/2ns+20 Meq Kcl -) 20 meq in 1,000 mls @ 100 mls/hr IV ASDIR ERVIN Last Admin: 02/27/18 23:12 Dose: 100 mls/hr Lactated Ringer's (Lactated Ringers Solution) 1,000 mls @ 75 mls/hr IV ASDIR ERVIN Morphine Sulfate (Morphine Injection -) 0.5 mg IVPUSH Q4H PRN PRN Reason: PAIN LEVEL 6-10 Ondansetron HCl (Zofran Injection) 4 mg IVPUSH Q6H PRN PRN Reason: NAUSEA AND/OR VOMITING Oxycodone HCl (Roxicodone -) 10 mg PO Q4H PRN PRN Reason: PAIN LEVEL 6-10 Oxycodone HCl (Roxicodone -) 5 mg PO Q4H PRN PRN Reason: PAIN LEVEL 1-5 - Objective Vital Signs: Vital Signs Temperature 98.9 F 02/28/18 08:34 Pulse Rate 69 02/28/18 08:34 Respiratory Rate 18 02/28/18 09:00 Blood Pressure 99/60 02/28/18 08:34 O2 Sat by Pulse Oximetry (%) 100 02/28/18 09:00 Constitutional: Yes: Calm, Mild Distress Cardiovascular: Yes: Regular Rate and Rhythm Respiratory: Yes: Regular, CTA Bilaterally Gastrointestinal: Yes: Soft, Other (abd pain) Musculoskeletal: Yes: WNL Extremities: Yes: WNL Neurological: Yes: Alert, Oriented Psychiatric: Yes: Alert, Oriented Labs: CBC, BMP 02/28/18 06:15 02/28/18 06:15 INR, PTT INR 1.23 (0.83-1.09) H 02/24/18 06:00 Assessment/Plan Problem List - Problems (1) Acute gallstone pancreatitis Code(s): K85.10 - BILIARY ACUTE PANCREATITIS WITHOUT NECROSIS OR INFECTION 2 electrolyte imbalance Assessment/Plan continue current mgmt continue abx await for surgery rest as per the team
[2018-02-28 11:55] LABS: BLOOD UREA NITROGEN 2 mg/dL (7-18); GLUCOSE,RANDOM 91 mg/dL (74-106)
[2018-02-28 11:56] LABS: CREATININE 0.6 mg/dL (0.55-1.3); SODIUM 144 mmol/L (136-145)
[2018-02-28 11:57] LABS: ANION GAP 10 MMOL/L (8-16); CALCIUM 8.2 mg/dL (8.5-10.1); CHLORIDE 106 mmol/L (98-107); CO2 28 mmol/L (21-32)
--- NOTE | 2018-02-28 12:25 | OP ---
Operative Note - Note: Operative Date: 02/28/18 Pre-Operative Diagnosis: choledocholithiasis,cholelithiasis Operation: laparoscopic cholecystectomy, converted to open cholecystectomy with [id number] choledocho-jejunostomy Findings: gallbladder entering cbd without cystic duct Post-Operative Diagnosis: Same as Pre-op Surgeon: Allan Celestin Hog Counter: Luis Kay (for open portion of procedure) Anesthesiologist/POULTRY FARMER: George Null Anesthesia: General Specimens Removed: gb Estimated Blood Loss (mls): 200 Operative Report Dictated: Yes
[2018-02-28] MEDS ORDERED: GLYCOPYRROLATE 0.2 MG/1 ML VIAL ONE (17:18)
[2018-02-28] MEDS ORDERED: NEOSTIGMINE METHYLSULFATE 0.5 MG/ML - 10 ML MDV ONE (17:18)
[2018-02-28] MEDS ORDERED: KETOROLAC TROMETHAMINE 30 MG/1 ML VIAL ONE (17:43)
[2018-02-28] MEDS ORDERED: morphine SULFATE 4 MG/ML VIAL IVPB PRN (18:44)
[2018-02-28] MEDS ORDERED: ACETAMINOPHEN 325 MG TABLET (FP) PO PRN (18:44)
[2018-02-28] MEDS ORDERED: HYDROmorphone *PCA* 10MG/50ML DISP.SYRIN PCA SCH (18:45)
[2018-02-28] MEDS ORDERED: ACETAMINOPHEN 1000 MG/100 ML VIAL (NON FORMULARY) IVPB ONE (18:45)
[2018-02-28] MEDS ORDERED: ACETAMINOPHEN INJECTION 100 ML IVPB ONE (18:50)
--- NOTE | 2018-02-28 19:07 | PN ---
Physical Exam: SUBJECTIVE: Patient seen and examined, she reports she is feeling well, denies pain. Went down for cholecystectomy at 11:30 AM. OBJECTIVE: Vital Signs Period Temp Pulse Resp BP Sys/Boykin Pulse Ox Last 24 Hr 98 F-98.9 F 55-69 18-18 99-113/60-64 100 GENERAL: Awake, alert, and fully oriented, in no acute distress. HEAD: Normal with no signs of trauma. EYES: Pupils equal, round and reactive to light, extraocular movements intact, sclera anicteric, conjunctiva clear. No lid lag. EARS, NOSE, THROAT: Nares patent, oropharynx clear without exudates. Moist mucous membranes. NECK: Normal range of motion, supple without lymphadenopathy, JVD, or masses. LUNGS: Breath sounds equal, clear to auscultation bilaterally. No wheezes, and no crackles. No accessory muscle use. HEART: Regular rate and rhythm, normal S1 and S2 without murmur, rub or gallop. ABDOMEN: Soft, TTP in epigastric region, not distended, normoactive bowel sounds , no guarding, no rebound, no masses. No hepatomegaly or splenomegaly. MUSCULOSKELETAL: Normal range of motion at all joints. No bony deformities or tenderness. No CVA tenderness. UPPER EXTREMITIES: 2+ pulses, warm, well-perfused. No cyanosis. No clubbing. No peripheral edema. LOWER EXTREMITIES: 2+ pulses, warm, well-perfused. No calf tenderness. No peripheral edema. NEUROLOGICAL: No facial droop, tongue midline, normal speech PSYCHIATRIC: Cooperative. Good eye contact. Appropriate mood and affect. SKIN: Warm, dry, normal turgor, no rashes or lesions noted, normal capillary refill. Laboratory Results - last 24 hr 02/27/18 02/28/18 02/28/18 21:15 06:15 06:15 WBC 3.5 L RBC 3.64 Hgb 11.9 Hct 32.8 MCV 89.9 MCH 32.7 MCHC 36.3 H RDW 13.7 Plt Count 178 D MPV 8.7 Sodium 144 Potassium 3.1 L 3.0 L Chloride 106 Carbon Dioxide 28 Anion Gap 10 BUN 2 L* Creatinine 0.6 Creat Clearance w eGFR > 60 Random Glucose 91 Calcium 8.2 L Serum , Qual 02/28/18 10:42 WBC RBC Hgb Hct MCV MCH MCHC RDW Plt Count MPV Sodium Potassium Chloride Carbon Dioxide Anion Gap BUN Creatinine Creat Clearance w eGFR Random Glucose Calcium Serum , Qual Negative Active Medications Generic Name Dose Route Start Last Admin Trade Name Freq PRN Reason Stop Dose Admin Acetaminophen 650 mg 02/28/18 18:44 Tylenol - PO Q4H PRN FEVER Enoxaparin Sodium 40 mg 03/01/18 10:00 Lovenox - SQ DAILY [facility] Fentanyl 50 mcg 02/28/18 18:44 Sublimaze Injection - IVPUSH Q5M PRN PAIN-PACU ORDER X 4 DOSES ONLY Hydromorphone HCl 10 mg 02/28/18 18:45 Dilaudid Matrix Bath Operator - SINGING WAITER OR WAITRESS 03/07/18 18:32 SINGING WAITER OR WAITRESS ERVIN Protocol Potassium Chloride/Dextrose/Sod Cl 20 meq in 1,000 mls @ 100 mls/hr 02/28/18 18:44 D5-1/2ns+20 Meq Kcl - IV ASDIR [facility] Lactated Ringer's 1,000 mls @ 75 mls/hr 02/28/18 18:44 Lactated Ringers Solution IV ASDIR [facility] Morphine Sulfate 4 mg 02/28/18 18:44 Morphine Sulfate IVPB Q3H PRN PAIN LEVEL 7 - 10 Ondansetron HCl 4 mg 02/28/18 18:44 Zofran Injection IVPUSH Q6H PRN NAUSEA AND/OR VOMITING Oxycodone HCl 7.5 mg 02/28/18 18:44 Roxicodone - PO Q4H PRN PAIN LEVEL 4 - 6 Pantoprazole Sodium 40 mg 03/01/18 10:00 Protonix Iv IVPUSH DAILY [facility] Abdominal US - Over distended gallbladder with multiple gallstones and without wall thickening or pericholecystic free fluid. Further evaluation is needed to rule out acute cholecystitis. Dilated common bile duct measuring 1.2 cm in diameter and mild dilatation of the central intrahepatic bile ducts. There is suggestion of debris layering within the common bile duct without definite evidence of a stone. Correlation with MRCP is recommended. Borderline dilatation of the pancreatic duct. ASSESSMENT/PLAN: 27 year old female with a PMH significant for pre eclampisa (resolved), presented to the ED with for days of RUQ pain and one episode of vomiting. Abdominal US showed multiple gallstones and a dilated CBD. She was admitted for surgical and GI consult. Pancreatitis/Cholelithiasis - Cholecystectomy today - ERCP 02/26/18; residual stone fragments were extracted from the CBD -No pancreatitis post procedure - Elevated lipase of 25,806 and amaylase >1300 on admission - LFTs now WNL - Followed by ID - Zosyn 2.25 mg IVP q8H - Monitor glucose - Seen by GI Dr. Salazar - May need a stent and repeat ERCP if the stones are large Hypokalemia - 3.0 today before procedure - has received several runs of K - Repeat BMP ordered Prophylaxis - DVT: OOB FEN - LR @ 75cc/hr - Replete as needed - NPO Disp: Requires inpatient treatment. FULL CODE Visit type - Emergency Visit Emergency Visit: No - New Patient This patient is new to me today: No - Critical Care Critical Care patient: No
[2018-02-28] MEDS ORDERED: PIPERACILLIN/TAZOBACTAM 4.5 GM VIAL IVPB ONE (19:30)
[2018-02-28] MEDS: PIPERACILLIN/TAZOB 4.5 GM 4.5 GM in DEXTROSE 5%-WATER 100 ML IVPB SCH ×2 (19:30)
[2018-02-28] MEDS ORDERED: HYDROmorphone *PCA* 10MG/50ML DISP.SYRIN PCA ONE (19:38)
[2018-03-01] MEDS: oxyCODONE HCL 5 MG TABLET PO PRN (00:47)
[2018-03-01] MEDS ORDERED: PIPERACILLIN/TAZOB 4.5 GM 4.5 GM in DEXTROSE 5%-WATER 100 ML IVPB SCH (02:00)
[2018-03-01] MEDS ORDERED: PIPERACILLIN/TAZOBACTAM 4.5 GM VIAL IVPB ONE (02:30)
[2018-03-01] MEDS ORDERED: DEXTROSE 5%-WATER 100 ML IVPB ONE (02:31)
[2018-03-01] MEDS: PIPERACILLIN/TAZOB 4.5 GM 4.5 GM in DEXTROSE 5%-WATER 100 ML IVPB SCH (02:52)
--- NOTE | 2018-03-01 09:07 | PN ---
Physical Exam: SUBJECTIVE: Patient seen and examined, POD 1 from cholecystectomy yesterday. Patient reports having some abdominal pain since her procedure. She has been using her MOTORCYCLE SUBASSEMBLY REPAIRER pump. Billiary contamination during laproscopic procedure, so an open cholecystectomy and choledochojejunostomy under general anesthesia was performed. OBJECTIVE: Vital Signs Period Temp Pulse Resp BP Sys/Boykin Pulse Ox Last 24 Hr 97.3 F-99.0 F 66-93 10-23 109-129/71-81 100-100 GENERAL: Fatigued, weak-appearing, fully oriented, in no acute distress. HEAD: Normal with no signs of trauma. EYES: Pupils equal, round and reactive to light, extraocular movements intact, sclera anicteric, conjunctiva clear. No lid lag. EARS, NOSE, THROAT: Nares patent, oropharynx clear without exudates. Moist mucous membranes. NECK: Normal range of motion, supple without lymphadenopathy, JVD, or masses. LUNGS: Breath sounds equal, clear to auscultation bilaterally. No wheezes, and no crackles. No accessory muscle use. HEART: Regular rate and rhythm, normal S1 and S2 without murmur, rub or gallop. ABDOMEN: + YONG drain with scant amount of sanginous drainage, + billiary drain with scant amount of opaque, yellow-green drainage. Surgical incision across upper abdomen, edges well approximated, sutures intact, no drainage, gauze bandage c/d/i, not distended, normoactive bowel sounds, no guarding, no rebound , no masses MUSCULOSKELETAL: Normal range of motion at all joints. No bony deformities or tenderness. No CVA tenderness. UPPER EXTREMITIES: 2+ pulses, warm, well-perfused. No cyanosis. No clubbing. No peripheral edema. LOWER EXTREMITIES: +SCDs, no calf tenderness. No peripheral edema. NEUROLOGICAL: No facial droop, tongue midline, normal speech PSYCHIATRIC: Polite, cooperative, good eye contact fatigued, SKIN: Warm, dry, normal turgor, no rashes or lesions noted, normal capillary refill. Laboratory Results - last 24 hr 02/28/18 02/28/18 06:15 10:42 Sodium 144 Potassium 3.0 L Chloride 106 Carbon Dioxide 28 Anion Gap 10 BUN 2 L* Creatinine 0.6 Creat Clearance w eGFR > 60 Random Glucose 91 Calcium 8.2 L Serum , Qual Negative Active Medications Generic Name Dose Route Start Last Admin Trade Name Freq PRN Reason Stop Dose Admin Acetaminophen 650 mg 02/28/18 18:44 Tylenol - PO Q4H PRN FEVER Enoxaparin Sodium 40 mg 03/01/18 10:00 Lovenox - SQ DAILY [facility] Hydromorphone HCl 10 mg 02/28/18 18:45 02/28/18 19:39 Dilaudid Shift Boss - MOTORCYCLE SUBASSEMBLY REPAIRER 03/07/18 18:32 10 mg MOTORCYCLE SUBASSEMBLY REPAIRER ERVIN Administration Protocol Potassium Chloride/Dextrose/Sod Cl 20 meq in 1,000 mls @ 100 mls/hr 02/28/18 18:44 D5-1/2ns+20 Meq Kcl - IV ASDIR ERVIN Piperacillin Sod/Tazobactam 100 mls @ 200 mls/hr 03/01/18 02:00 Sod 4.5 gm/ Dextrose IVPB Q8HIV ERVIN Morphine Sulfate 4 mg 02/28/18 18:44 Morphine Sulfate IVPB Q3H PRN PAIN LEVEL 7 - 10 Oxycodone HCl 7.5 mg 02/28/18 18:44 03/01/18 00:47 Roxicodone - PO 7.5 mg Q4H PRN Administration PAIN LEVEL 4 - 6 Pantoprazole Sodium 40 mg 03/01/18 10:00 Protonix Iv IVPUSH DAILY [facility] Abdominal US - Over distended gallbladder with multiple gallstones and without wall thickening or pericholecystic free fluid. Further evaluation is needed to rule out acute cholecystitis. Dilated common bile duct measuring 1.2 cm in diameter and mild dilatation of the central intrahepatic bile ducts. There is suggestion of debris layering within the common bile duct without definite evidence of a stone. Correlation with MRCP is recommended. Borderline dilatation of the pancreatic duct. ASSESSMENT/PLAN: 27 year old female with a PMH significant for pre eclampsia (resolved), presented to the ED with for days of RUQ pain and one episode of vomiting. Abdominal US showed multiple gallstones and a dilated CBD. She was admitted for surgical and GI consult. Pancreatitis/Cholelithiasis - POD #1 Cholecystectomy/choledochojejunostomy - Pain management: - MOTORCYCLE SUBASSEMBLY REPAIRER pump with Dilaudid d/russell - Morphine 4 mg IVP q3 hrs PRN - Oxycodone 7.5 mg PO q4h PRN - had one dose at 12:47 AM - Bile duct stent and drain will need to be in place for 6 weeks. - ERCP 02/26/18; residual stone fragments were extracted from the CBD -No pancreatitis post procedure - Elevated lipase of 25,806 and amaylase >1300 on admission - LFTs now WNL - Followed by ID - Continue Zosyn 2.25 mg IVP q8H Hypokalemia - Resolved; 3.6 today - Had been running low, has received several runs of K during her stay - Monitor BMP Prophylaxis - DVT: SCDs, Lovenox - GI: Protonix 40 mg IVP qday FEN - D5 1/2 NS with KCL 20 meq @ 100 cc/hr - Replete as needed - NPO, advance to liquid diet in the next few days Disp: Will observe FULL CODE Visit type - Emergency Visit Emergency Visit: No - New Patient This patient is new to me today: No - Critical Care Critical Care patient: No
[2018-03-01 09:29] LABS: HEMATOCRIT 33.6 % (32.4-45.2); HEMOGLOBIN 11.4 GM/dL (10.7-15.3); MCHC 33.9 g/dl (32.0-36.0); MEAN CELL VOLUME 91.5 fl (80-96); MEAN PLT VOLUME 8.8 fl (7.5-11.1); PLATELET COUNT 164 K/MM3 (134-434); RBC 3.67 M/mm3 (3.60-5.2); RDW 13.8 % (11.6-15.6); WHITE BLOOD COUNT 5.7 K/mm3 (4.0-10.0)
[2018-03-01] MEDS ORDERED: ENOXAPARIN NA (PORCINE) 40 MG/0.4 ML DISP.SYRIN SQ SCH (10:00)
[2018-03-01 10:10] LABS: ALBUMIN 3.2 g/dl (3.4-5.0); ALK PHOS 72 U/L (45-117); ANION GAP 4 MMOL/L (8-16); BILIRUBIN,DIRECT 0.2 mg/dL (0.0-0.2); BILIRUBIN,TOTAL 0.6 mg/dL (0.2-1); BLOOD UREA NITROGEN 3 mg/dL (7-18); CALCIUM 7.9 mg/dL (8.5-10.1); CHLORIDE 103 mmol/L (98-107); CO2 32 mmol/L (21-32); CREATININE 0.6 mg/dL (0.55-1.3); GLUCOSE,RANDOM 100 mg/dL (74-106); POTASSIUM 3.6 mmol/L (3.5-5.1); SGOT/AST 20 U/L (15-37); SGPT/ALT 41 U/L (13-61); SODIUM 140 mmol/L (136-145); TOT PROT 5.9 g/dl (6.4-8.2)
[2018-03-01] MEDS: PANTOPRAZOLE SODIUM 40 MG VIAL IVPUSH SCH (10:48)
[2018-03-01] MEDS: ENOXAPARIN NA (PORCINE) 40 MG/0.4 ML DISP.SYRIN SQ SCH (10:48)
--- NOTE | 2018-03-01 11:31 | PN ---
Progress Note (short form) - Note Progress Note: ANESTHESIOLOGY POST-OP CHECK 27F s/p open cholecystectomy and choledochojejunostomy under general anesthesia , POD #1. No acute complaints. Pain 3/10 and tolerable. Denies N/V, stilk NPO Vital Signs Temperature 98.3 F 03/01/18 05:03 Pulse Rate 93 H 03/01/18 05:03 Respiratory Rate 20 03/01/18 05:03 Blood Pressure 109/72 03/01/18 05:03 O2 Sat by Pulse Oximetry (%) 100 02/28/18 21:00 Active Medications Acetaminophen (Tylenol -) 650 mg PO Q4H PRN PRN Reason: FEVER Enoxaparin Sodium (Lovenox -) 40 mg SQ DAILY [facility] Last Admin: 03/01/18 10:48 Dose: 40 mg Hydromorphone HCl (Dilaudid Instructor Kindergarten -) 10 mg TELECOMMUNICATIONS FIELD ENGINEER TELECOMMUNICATIONS FIELD ENGINEER [facility]; Protocol Stop: 03/07/18 18:32 Last Admin: 02/28/18 19:39 Dose: 10 mg Potassium Chloride/Dextrose/Sod Cl (D5-1/2ns+20 Meq Kcl -) 20 meq in 1,000 mls @ 100 mls/hr IV ASDIR [facility] Piperacillin Sod/Tazobactam (Sod 4.5 gm/ Dextrose) 100 mls @ 200 mls/hr IVPB Q8HIV [facility] Morphine Sulfate (Morphine Sulfate) 4 mg IVPB Q3H PRN PRN Reason: PAIN LEVEL 7 - 10 Oxycodone HCl (Roxicodone -) 7.5 mg PO Q4H PRN PRN Reason: PAIN LEVEL 4 - 6 Last Admin: 03/01/18 00:47 Dose: 7.5 mg Pantoprazole Sodium (Protonix Iv) 40 mg IVPUSH DAILY [facility] Last Admin: 03/01/18 10:48 Dose: 40 mg Gen: awake, alert, NAD No apparent anesthesia complications, pain well controlled with dilaudid TELECOMMUNICATIONS FIELD ENGINEER. NPO - Continue TELECOMMUNICATIONS FIELD ENGINEER while NPO - Continue management as per primary team.
--- NOTE | 2018-03-01 13:37 | PN ---
Progress Note, Physician History of Present Illness: post op surgery and surgical events noted patient remaining stable - Current Medication List Current Medications: Active Medications Acetaminophen (Tylenol -) 650 mg PO Q4H PRN PRN Reason: FEVER Enoxaparin Sodium (Lovenox -) 40 mg SQ DAILY [facility] Last Admin: 03/01/18 10:48 Dose: 40 mg Hydromorphone HCl (Dilaudid Software Design Analyst -) 10 mg CELLULAR PLASTICS CUTTER CELLULAR PLASTICS CUTTER [facility]; Protocol Stop: 03/07/18 18:32 Last Admin: 02/28/18 19:39 Dose: 10 mg Potassium Chloride/Dextrose/Sod Cl (D5-1/2ns+20 Meq Kcl -) 20 meq in 1,000 mls @ 100 mls/hr IV ASDIR ERVIN Piperacillin Sod/Tazobactam (Sod 4.5 gm/ Dextrose) 100 mls @ 200 mls/hr IVPB Q8HIV ERVIN Morphine Sulfate (Morphine Sulfate) 4 mg IVPB Q3H PRN PRN Reason: PAIN LEVEL 7 - 10 Oxycodone HCl (Roxicodone -) 7.5 mg PO Q4H PRN PRN Reason: PAIN LEVEL 4 - 6 Last Admin: 03/01/18 00:47 Dose: 7.5 mg Pantoprazole Sodium (Protonix Iv) 40 mg IVPUSH DAILY [facility] Last Admin: 03/01/18 10:48 Dose: 40 mg - Objective Vital Signs: Vital Signs Temperature 99.2 F 03/01/18 09:00 Pulse Rate 67 03/01/18 09:00 Respiratory Rate 18 03/01/18 09:00 Blood Pressure 117/74 03/01/18 09:00 O2 Sat by Pulse Oximetry (%) 100 03/01/18 09:00 Constitutional: Yes: No Distress, Calm Cardiovascular: Yes: Regular Rate and Rhythm Respiratory: Yes: Regular, CTA Bilaterally Gastrointestinal: Yes: Normal Bowel Sounds, Soft, Other (sanna drain in place absent bowel sounds) Musculoskeletal: Yes: WNL Extremities: Yes: WNL Neurological: Yes: Alert, Oriented Psychiatric: Yes: Alert, Oriented Labs: CBC, BMP 03/01/18 09:15 03/01/18 09:15 INR, PTT INR 1.23 (0.83-1.09) H 02/24/18 06:00 Assessment/Plan Problem List - Problems (1) Acute gallstone pancreatitis Code(s): K85.10 - BILIARY ACUTE PANCREATITIS WITHOUT NECROSIS OR INFECTION 2 electrolyte imbalance Assessment/Plan continue abx hydration close watch monitor drainage
--- NOTE | 2018-03-01 14:06 | PN ---
Progress Note (short form) - Note Progress Note: surgery pt seen and examined. Feels well. oob to bathroom and now in chair. voiding. minimal pain. afebrile abd- soft, nt, incision clean, nd sanna sero-sanguinous bile duct stent- minimal clear bile Laboratory Tests 03/01/18 03/01/18 09:15 09:15 WBC 5.7 Hgb 11.4 Total Bilirubin 0.6 Direct Bilirubin 0.2 AST 20 ALT 41 Alkaline Phosphatase 72 A/P 1) pod#1- s/p cholecystectomy and blair-n-y choledochojejunostomy. cont npo, ivf, sanna, bile duct stent 2) choledocholithiasis, bile conamination at surgery- finish iv abx 3) prophylaxis- lovenox, protonix, oob, spirometer would expect to start liquid diet in next few days. bile duct stent and drain will expect to remain in for 6 weeks. I spent 30 minutes with patient and describing the surgery and answered all their questions
--- NOTE | 2018-03-01 16:03 | OP ---
DATE OF OPERATION: 03/01/2018 PROCEDURE: Laparoscopic cholecystectomy converted to open cholecystectomy with Bro-en-Y choledochojejunostomy. SURGEON: Allan Celestin DO POWDER ROOM ATTENDANT: Luis Kay MD for the open portion of the procedure. ANESTHESIOLOGIST: George Null MD PREOPERATIVE DIAGNOSIS: Choledocholithiasis, pancreatitis, cholelithiasis. POSTOPERATIVE DIAGNOSIS: Choledocholithiasis, pancreatitis, cholelithiasis. INTRAOPERATIVE FINDINGS: Gallbladder directly attached to the common bile duct without a cystic duct. The common bile duct was not dilated. ESTIMATED BLOOD LOSS: 200 ml DRAINS: Isaías-Shepherd drain located at the hepatic fossa and a bile duct drain passing through the choledochojejunostomy. BRIEF HISTORY: This is a 27-year-old female who presented to [facility]. She was diagnosed with pancreatitis and choledocholithiasis based on liver function tests, ultrasound, and MRCP. She underwent an ERCP with sphincterotomy and stone extraction by Dr. Mika Lemos. She presents now for cholecystectomy to prevent future recurrence. Informed consent was taken from the patient with her present. DESCRIPTION OF PROCEDURE: The patient was placed in the supine position. After general anesthesia was initiated, the abdomen was prepped and draped in sterile fashion. The patient was already on Zosyn antibiotic. Next, a transverse incision was made infraumbilical with scalpel used to go through the skin and subcutaneous tissue. The fascia was then lifted with a Raz clamp. A Veress needle was inserted, and pneumoperitoneum was created. Next, an 11-mm trocar was placed followed by insertion of a 10-mm 0-degree laparoscope. An additional 11-mm trocar was placed subxiphoid, and two 5-mm trocars were placed in the right upper quadrant. Attention was then turned toward the gallbladder. It was seen. It was pale, distended, and thickened. The fundus was lifted cephalad. The infundibulum retracted laterally. The peritoneal peel was dissected down. Preoperatively, the MRCP film was reviewed as well as the fluoroscopy, and the cystic duct was not obviously visualized on either film, and this was felt to be from either a short cystic duct or a folded one. Therefore, the decision was made to stay very close to the gallbladder and divide the cystic duct right at the junction. The lateral reflection was taken down. The infundibulum of the gallbladder was dissected off of the liver up to the body. The cystic artery was identified, and what was felt to be the cystic duct was identified after all fat was dissected out of the triangle. The critical view was seen between the cystic duct and the cystic artery as the infundibulum of the gallbladder was retracted away from liver and there was noted to be no structures behind the infundibulum. At this point the decision was made to take what was felt to be the cystic duct at the junction where it clearly entered into the gallbladder. A multifire vascular load 30-mm stapler was used to divide the duct at this location. The cystic artery was then clipped and divided. Now the gallbladder was retracted to be removed from its liver attachments. As the body of the gallbladder was dissected off of its liver attachments, there was noted to be a structure going into the liver that ran along the now visualized hepatic surface of the gallbladder and joining with the endo-juan c staple line. This structure actually was the common bile duct. It was now apparent that the patient had no cystic duct, and the common bile duct directly emptied the infundibulum of the gallbladder. At this point, I broke scrub and went out to discuss the situation with the patient's . Options were discussed and questions answered and the decision was made to convert to an open operation to repair this. I then called Dr. Luis Kay to assist and the operative team then prepared for the open portion of the procedure. Now a Raz incision was made below the right subcostal margin. Scalpel was used to go through the skin and subcutaneous tissue. The anterior rectus sheath and oblique fascia was then incised. The rectus muscle was then divided , and the division was extended into the oblique musculature. The posterior sheath was then opened initially sharply and then further with electrocautery. A Bookwalter retractor was inserted providing exposure. The gallbladder, which was still partially attached to the liver was located as well as the stapled bile duct. The gallbladder was removed from its liver attachments and sent to Pathology marked as specimen. The common bile duct was then inspected. There was a JUAN C staple line going across it. The staple line was then sharply excised from the proximal duct, and although the common bile duct had been clearly dilated on previously MRCP, it had now returned to normal size of approximately 3 mm. Due to the small size of the duct, the risk of tension from loss of length, and the possibility of devascularization, the decision was made to do a choledochojejunostomy instead of a primary re-attachment. Now 40 cm from the ligament of Treitz, the jejunum was divided. The distal jejunum was mobilized and easily reached the transected proximal bile duct. An enterotomy was created in this Bro limb of the jejunum. The proximal bile duct was then sewn to the enterotomy utilizing 4-0 Maxon sutures. An 8-Vietnamese bile duct tube was passed through the anastomosis several cm into the intra- hepatic biliary tree and brought out through a separate exit site in the bro limb. The final stitch of the anastomosis was completed after the tube was passed in order to ensure proper placement and visualization. A purse string suture was placed where the 8-Vietnamese tube exited from the bro limb and then the bowel was imbricated over it in a Brandi fashion. Now a cholangiogram was done, and the right biliary tree lit up with contrast since the catheter/drain was situated in the right biliary tree. The contrast then clearly flowed into the Bro limb of the jejunum, and a hint of contrast was seen back-washing into the left bile duct. No leakage was noted at the anastomotic site. Now the jejuno-jejunostomy was then completed recreating the bowel continuity with a [id number]-bn-[id number] anastomosis using a JUAN C 80 stapler. Upon inspection of the anastamosis, before the enterotomy was closed, copious bile was noted flowing within the small bowel consistent with a patent biliary anastamosis. A TA 60 blue stapler was then used to close the enterotomy. The staple line was inspected. It was intact. There was no bleeding. No breaks. No signs of ischemia. The anastomosis was felt for patency. It was visually inspected and palpated, and succus was able to pass from proximal to distal and distal to proximal. Now with the jejunostomy adequate and the choledochojejunostomy sound , the Bro limb of the jejunum was then secured to the abdominal wall at the location of the exit of bile duct tube, which had been brought out through the abdominal wall. The Bro limb was secured with 4 seromuscular silk sutures to prevent any leakage at the exit site of the tube and to allow future percutaneous access to the biliary limb. The bile duct tube itself was then secured to the patient's skin with six silk sutures to prevent inadvertent dislodgement. It was then connected to a bile drainage bag. A Isaías-Shpeherd drain was placed in the location of the choledochojejunostomy and also brought out through a puncture site in the right upper quadrant. A vigorous lavage was done, and all return was clear. The Bookwalter retractor had been removed. The omentum, colon, and bowel were placed in their usual location. The Raz incision was then closed with 2 layers of #1 PDS with one layer closing the posterior rectus sheath and the next layer closing the anterior rectus sheath. The subcutaneous tissue was irrigated. A Marcaine injection was done in the posterior sheath to help with postoperative analgesia. The skin was closed with a running V-Lock suture, and Dermabond dressing was placed. The laparoscopic trocar sites were closed with Biosyn, and the fascia of the infraumbilical trocar site was closed with multiple interrupted 0 Vicryl sutures. Overall, the patient tolerated the procedure well. Blood loss was approximately 200 mL. The only specimen was the gallbladder. The patient's disposition was to the recovery room where she will be expected to go to the medical floor and will await return of bowel function. The bile stent/drain will remain in for likely 6 weeks to ensure proper healing of the anastomosis and no stenosis. DO DERIC ANDERSON/[id number] MTDD
[2018-03-01] MEDS: D5-1/2NS+20 MEQ KCL - 20 MEQ/1,000 ML INFUS.BAG IV SCH (18:11)
[2018-03-02] MEDS: D5-1/2NS+20 MEQ KCL - 20 MEQ/1,000 ML INFUS.BAG IV SCH ×2 (04:30→14:24)
--- NOTE | 2018-03-02 08:31 | PN ---
Progress Note (short form) - Note Progress Note: Post op day#2.Patient stable and has pain score of 2-3/10.So will Dc LABELING SPECIALIST and put patient on po pain medication.No any anesthesia related problem.Patient Dc from the anesthesia care.
[2018-03-02 09:30] LABS: HEMATOCRIT 30.2 % (32.4-45.2); HEMOGLOBIN 10.7 GM/dL (10.7-15.3); MCH 32.5 pg (25.7-33.7); MCHC 35.5 g/dl (32.0-36.0); MEAN CELL VOLUME 91.6 fl (80-96); MEAN PLT VOLUME 8.8 fl (7.5-11.1); PLATELET COUNT 179 K/MM3 (134-434); RBC 3.29 M/mm3 (3.60-5.2); RDW 13.9 % (11.6-15.6); WHITE BLOOD COUNT 5.8 K/mm3 (4.0-10.0)
[2018-03-02 10:10] LABS: ANION GAP 6 MMOL/L (8-16); CHLORIDE 104 mmol/L (98-107); CO2 30 mmol/L (21-32); CREATININE 0.4 mg/dL (0.55-1.3); GLUCOSE,RANDOM 94 mg/dL (74-106); POTASSIUM 3.5 mmol/L (3.5-5.1); SODIUM 140 mmol/L (136-145)
[2018-03-02 10:16] LABS: BLOOD UREA NITROGEN 2 mg/dL (7-18)
[2018-03-02] MEDS: PANTOPRAZOLE SODIUM 40 MG VIAL IVPUSH SCH (10:28)
[2018-03-02] MEDS: ENOXAPARIN NA (PORCINE) 40 MG/0.4 ML DISP.SYRIN SQ SCH (10:29)
--- NOTE | 2018-03-02 11:29 | PN ---
Physical Exam: SUBJECTIVE: Patient seen and examined, she reports pain is well controlled. Still feeling weak, she is passing urine but not flatus or stool. OBJECTIVE: Vital Signs Period Temp Pulse Resp BP Sys/Boykin Pulse Ox Last 24 Hr 98.1 F-98.8 F 68-82 18-20 105-118/62-70 97 GENERAL: Fatigued, sitting in a chair, fully oriented, in no acute distress. HEAD: Normal with no signs of trauma. EYES: Pupils equal, round and reactive to light, extraocular movements intact, sclera anicteric, conjunctiva clear. No lid lag. EARS, NOSE, THROAT: Nares patent, oropharynx clear without exudates. Moist mucous membranes. NECK: Normal range of motion, supple without lymphadenopathy, JVD, or masses. LUNGS: Breath sounds equal, clear to auscultation bilaterally. No wheezes, and no crackles. No accessory muscle use. HEART: Regular rate and rhythm, normal S1 and S2 without murmur, rub or gallop. ABDOMEN: + YONG drain with scant amount of sanginous drainage, + billiary drain with scant amount of dark yellow-green drainage. Surgical incision across upper abdomen, edges well approximated, sutures intact, no drainage, gauze bandage c/d /i, not distended, normoactive bowel sounds, no guarding, no rebound, no masses MUSCULOSKELETAL: Normal range of motion at all joints. No bony deformities or tenderness. No CVA tenderness. UPPER EXTREMITIES: 2+ pulses, warm, well-perfused. No cyanosis. No clubbing. No peripheral edema. LOWER EXTREMITIES: +SCDs, no calf tenderness. No peripheral edema. NEUROLOGICAL: No facial droop, tongue midline, normal speech PSYCHIATRIC: Polite, cooperative, good eye contact fatigued, SKIN: Warm, dry, normal turgor, no rashes or lesions noted, normal capillary refill. Laboratory Results - last 24 hr 03/02/18 03/02/18 08:50 08:50 WBC 5.8 RBC 3.29 L Hgb 10.7 Hct 30.2 L MCV 91.6 MCH 32.5 MCHC 35.5 RDW 13.9 Plt Count 179 MPV 8.8 Sodium 140 Potassium 3.5 Chloride 104 Carbon Dioxide 30 Anion Gap 6 L BUN 2 L* Creatinine 0.4 L Creat Clearance w eGFR > 60 Random Glucose 94 Calcium 8.0 L Active Medications Generic Name Dose Route Start Last Admin Trade Name Freq PRN Reason Stop Dose Admin Acetaminophen 650 mg 02/28/18 18:44 Tylenol - PO Q4H PRN FEVER Enoxaparin Sodium 40 mg 03/01/18 10:00 03/02/18 10:29 Lovenox - SQ 40 mg DAILY ERVIN Administration Hydromorphone HCl 10 mg 02/28/18 18:45 02/28/18 19:39 Dilaudid Manager Care Management - RUBY ENGINEER 03/07/18 18:32 10 mg RUBY ENGINEER ERVIN Administration Protocol Potassium Chloride/Dextrose/Sod Cl 20 meq in 1,000 mls @ 100 mls/hr 02/28/18 18:44 03/02/18 04:30 D5-1/2ns+20 Meq Kcl - IV 100 mls/hr ASDIR ERVIN Administration Piperacillin Sod/Tazobactam 100 mls @ 200 mls/hr 03/01/18 02:00 Sod 4.5 gm/ Dextrose IVPB Q8HIV ERVIN Morphine Sulfate 4 mg 02/28/18 18:44 Morphine Sulfate IVPB Q3H PRN PAIN LEVEL 7 - 10 Oxycodone HCl 7.5 mg 02/28/18 18:44 03/01/18 00:47 Roxicodone - PO 7.5 mg Q4H PRN Administration PAIN LEVEL 4 - 6 Pantoprazole Sodium 40 mg 03/01/18 10:00 03/02/18 10:28 Protonix Iv IVPUSH 40 mg DAILY ERVIN Administration Abdominal US - Over distended gallbladder with multiple gallstones and without wall thickening or pericholecystic free fluid. Further evaluation is needed to rule out acute cholecystitis. Dilated common bile duct measuring 1.2 cm in diameter and mild dilatation of the central intrahepatic bile ducts. There is suggestion of debris layering within the common bile duct without definite evidence of a stone. Correlation with MRCP is recommended. Borderline dilatation of the pancreatic duct. ASSESSMENT/PLAN: 27 year old female with a PMH significant for pre eclampsia (resolved), presented to the ED with for days of RUQ pain and one episode of vomiting. Abdominal US showed multiple gallstones and a dilated CBD. She was admitted for surgical and GI consult. Pancreatitis/Cholelithiasis - ERCP 02/26/18; residual stone fragments were extracted from the CBD -No pancreatitis post procedure - POD #2 Cholecystectomy/choledochojejunostomy - Pain management: - Morphine 4 mg IVP q3 hrs PRN - Oxycodone 7.5 mg PO q4h PRN - Bile duct stent and drain will need to be in place for 6 weeks. - Expected post op ileus - May start clear liquids tomorrow pending exam and flatus - Followed by ID - Continue Zosyn 2.25 mg IVP q8H Hypokalemia - Resolved; 3.5 today - Had been running low, has received several runs of K during her stay - Monitor BMP Prophylaxis - DVT: SCDs, Lovenox - GI: Protonix 40 mg IVP qday FEN - D5 1/2 NS KCL 20 meq@ 100 cc/hr - Replete as needed - NPO, may start clear liquids tomorrow pending exam and flatus Disp: Will observe FULL CODE Visit type - Emergency Visit Emergency Visit: No - New Patient This patient is new to me today: No - Critical Care Critical Care patient: No
[2018-03-02 13:20] LABS: ANION GAP 6 MMOL/L (8-16); BLOOD UREA NITROGEN 3 mg/dL (7-18); CALCIUM 7.9 mg/dL (8.5-10.1); CHLORIDE 103 mmol/L (98-107); CO2 31 mmol/L (21-32); CREATININE 0.5 mg/dL (0.55-1.3); GLUCOSE,RANDOM 111 mg/dL (74-106); POTASSIUM 3.1 mmol/L (3.5-5.1); SODIUM 140 mmol/L (136-145)
--- NOTE | 2018-03-02 13:24 | PN ---
Progress Note, Physician History of Present Illness: patient stable pain still present - Current Medication List Current Medications: Active Medications Acetaminophen (Tylenol -) 650 mg PO Q4H PRN PRN Reason: FEVER Enoxaparin Sodium (Lovenox -) 40 mg SQ DAILY [facility] Last Admin: 03/02/18 10:29 Dose: 40 mg Hydromorphone HCl (Dilaudid Medical Office Specialist -) 10 mg SUPERVISOR SLEEPING BAG DEPARTMENT SUPERVISOR SLEEPING BAG DEPARTMENT [facility]; Protocol Stop: 03/07/18 18:32 Last Admin: 02/28/18 19:39 Dose: 10 mg Piperacillin Sod/Tazobactam (Sod 4.5 gm/ Dextrose) 100 mls @ 200 mls/hr IVPB Q8HIV ERVIN Morphine Sulfate (Morphine Sulfate) 4 mg IVPB Q3H PRN PRN Reason: PAIN LEVEL 7 - 10 Oxycodone HCl (Roxicodone -) 7.5 mg PO Q4H PRN PRN Reason: PAIN LEVEL 4 - 6 Last Admin: 03/01/18 00:47 Dose: 7.5 mg Pantoprazole Sodium (Protonix Iv) 40 mg IVPUSH DAILY [facility] Last Admin: 03/02/18 10:28 Dose: 40 mg - Objective Vital Signs: Vital Signs Temperature 98.7 F 03/02/18 09:00 Pulse Rate 79 03/02/18 10:45 Respiratory Rate 20 03/02/18 10:45 Blood Pressure 108/59 L 03/02/18 10:45 O2 Sat by Pulse Oximetry (%) 98 03/02/18 09:00 Constitutional: Yes: No Distress, Calm Cardiovascular: Yes: Regular Rate and Rhythm Respiratory: Yes: Regular, CTA Bilaterally Gastrointestinal: Yes: Normal Bowel Sounds, Soft Musculoskeletal: Yes: WNL Extremities: Yes: WNL Neurological: Yes: Alert, Oriented Psychiatric: Yes: Alert, Oriented Labs: CBC, BMP 03/02/18 08:50 03/02/18 10:54 INR, PTT INR 1.23 (0.83-1.09) H 02/24/18 06:00 Assessment/Plan Problem List - Problems (1) Acute gallstone pancreatitis Code(s): K85.10 - BILIARY ACUTE PANCREATITIS WITHOUT NECROSIS OR INFECTION 2 electrolyte imbalance Assessment/Plan continue current mgmt continue abx rest as per surgery and the team
[2018-03-02] MEDS ORDERED: PIPERACILLIN/TAZOBACTAM 3.375 GM VIAL IVPB ONE ×2 (13:49→18:02)
[2018-03-02] MEDS ORDERED: DEXTROSE 5%-WATER - 50 ML IVPB ONE ×2 (13:50→18:03)
[2018-03-02] MEDS: PIPERACILLIN/TAZOB 3.375 GM 3.375 GM in DEXTROSE 5%-WATER - 50 ML IVPB SCH ×2 (14:22→18:39)
--- NOTE | 2018-03-02 14:30 | PN ---
Progress Note (short form) - Note Progress Note: surgery pt seen and examined. sitting in chair by winding. beam machine operator stopped. denies flatus or bm. minimal discomfort. afebrile abd- soft, nd, nt, incision clean, sanna serous, bile drain with 15 ml bile Laboratory Tests 03/02/18 03/02/18 08:50 10:54 WBC 5.8 Potassium 3.1 L A/P 1) pod#2- s/p cholecystectomy and blair-n-y choledochojejunostomy. cont npo, ivf, sanna, bile duct stent 2) choledocholithiasis, bile contamination at surgery- abx per id. can likley stop. 3) prophylaxis- lovenox, protonix, oob, spirometer 4) expected post op ileus- may start clear liquids tomorrow pending exam and flatus.
--- NOTE | 2018-03-02 15:35 | PATH ---
Surgical Pathology Report Patient Name: HAIM WINN Med. Rec. #: [id number] /Age/Gender: 1990 (Age: 27) / F Account: [id number] Location: [address] [place] [address]/[facility] Taken: 02/28/2018 Received: 03/01/2018 Reported: 03/02/2018 Physicians: Christ Juarez ANP Specimen(s) Received GALLBLADDER Clinical History Choledocholithiasis, cholelithiasis Final Diagnosis GALLBLADDER, LAPAROSCOPIC CHOLECYSTECTOMY: ACUTE AND CHRONIC CHOLECYSTITIS, CHOLESTEROLOSIS, AND CHOLELITHIASIS. Electronically Signed Concha Wang M.D. Gross Description Received in formalin, labeled "gallbladder," is a 9.0 x 3.8 x 2.5 cm. gallbladder with a 0.2 cm. in length portion of cystic duct attached. The outer surface is barajas-harp and varies from smooth to shaggy. The lumen contains barajas, tenacious bile as well as abundant brown choleliths ranging from 0.5-0.9 cm in greatest dimension. The mucosa is barajas-green with focal erosions. The wall of the gallbladder averages 0.2 cm. in thickness. Header Dock sections are submitted in one cassette. 03/01/2018 [facility]03/01/2018
[2018-03-02 16:59] LABS: ANION GAP 7 MMOL/L (8-16); CHLORIDE 102 mmol/L (98-107); CO2 31 mmol/L (21-32); CREATININE 0.5 mg/dL (0.55-1.3); GLUCOSE,RANDOM 100 mg/dL (74-106); POTASSIUM 3.1 mmol/L (3.5-5.1); SODIUM 140 mmol/L (136-145)
[2018-03-02 17:01] LABS: BLOOD UREA NITROGEN 2 mg/dL (7-18)
[2018-03-03] MEDS ORDERED: DEXTROSE 5%-WATER - 50 ML IVPB ONE ×3 (00:15→17:27)
[2018-03-03] MEDS ORDERED: PIPERACILLIN/TAZOBACTAM 3.375 GM VIAL IVPB ONE ×3 (00:15→17:27)
[2018-03-03] MEDS: PIPERACILLIN/TAZOB 3.375 GM 3.375 GM in DEXTROSE 5%-WATER - 50 ML IVPB SCH ×3 (02:54→17:33)
[2018-03-03] MEDS: D5-1/2NS+20 MEQ KCL - 20 MEQ/1,000 ML INFUS.BAG IV SCH ×3 (02:56→23:59)
[2018-03-03 08:02] LABS: HEMOGLOBIN 9.7 GM/dL (10.7-15.3); MCH 30.9 pg (25.7-33.7); MCHC 33.6 g/dl (32.0-36.0); MEAN PLT VOLUME 7.9 fl (7.5-11.1); PLATELET COUNT 158 K/MM3 (134-434); RBC 3.15 M/mm3 (3.60-5.2); WHITE BLOOD COUNT 4.5 K/mm3 (4.0-10.0)
[2018-03-03 08:54] LABS: ALK PHOS 64 U/L (45-117); BILIRUBIN,DIRECT 0.2 mg/dL (0.0-0.2); BILIRUBIN,TOTAL 0.4 mg/dL (0.2-1); SGOT/AST 27 U/L (15-37); SGPT/ALT 37 U/L (13-61); TOT PROT 5.7 g/dl (6.4-8.2)
[2018-03-03 09:04] LABS: ANION GAP 5 MMOL/L (8-16); CHLORIDE 105 mmol/L (98-107); CO2 31 mmol/L (21-32); CREATININE 0.5 mg/dL (0.55-1.3); GLUCOSE,RANDOM 101 mg/dL (74-106); MAGNESIUM 1.9 mg/dL (1.8-2.4); POTASSIUM 3.2 mmol/L (3.5-5.1); SODIUM 141 mmol/L (136-145)
[2018-03-03 09:18] LABS: BLOOD UREA NITROGEN 2 mg/dL (7-18)
--- NOTE | 2018-03-03 10:08 | PN ---
Physical Exam: SUBJECTIVE: Patient seen and examined at the bedside. sitting up in chair, in no acute distress. denies abdominal pain, not yet passing gas. mild tenderness to abdomen on light palpation OBJECTIVE: replete K surgery follow up Vital Signs Period Temp Pulse Resp BP Sys/Boykin Pulse Ox Last 24 Hr 98.7 F-99.3 F 66-82 18-20 105-114/57-65 98 GENERAL: The patient is awake, alert, and fully oriented, in no acute distress. HEAD: Normal with no signs of trauma. EYES: PERRL, extraocular movements intact, sclera anicteric, conjunctiva clear. No ptosis. ENT: Ears normal, nares patent, oropharynx clear without exudates, moist mucous membranes. NECK: Trachea midline, full range of motion, supple. LUNGS: Breath sounds equal, clear to auscultation bilaterally HEART: Regular rate and rhythm ABDOMEN: Soft, mildly tender, mildly distended, bili drain with scant amt of drainage, sanna drain with <20cc of sero sang drainage. EXTREMITIES: no edema. NEUROLOGICAL: Normal speech, gait not observed. PSYCH: Normal mood, normal affect. SKIN: Warm, dry, normal turgor, no rashes or lesions noted Laboratory Results - last 24 hr 03/02/18 03/02/18 03/02/18 08:50 10:54 15:00 WBC RBC Hgb Hct MCV MCH MCHC RDW Plt Count MPV Sodium 140 140 140 Potassium 3.5 3.1 L 3.1 L Chloride 104 103 102 Carbon Dioxide 30 31 31 Anion Gap 6 L 6 L 7 L BUN 2 L* 3 L 2 L* Creatinine 0.4 L 0.5 L 0.5 L Creat Clearance w eGFR > 60 > 60 > 60 Random Glucose 94 111 H 100 Calcium 8.0 L 7.9 L 8.0 L Magnesium Total Bilirubin Direct Bilirubin AST ALT Alkaline Phosphatase Total Protein Albumin 03/03/18 03/03/18 06:00 06:00 WBC 4.5 RBC 3.15 L Hgb 9.7 L Hct 29.0 L MCV 92.0 MCH 30.9 MCHC 33.6 RDW 14.0 Plt Count 158 MPV 7.9 D Sodium 141 Potassium 3.2 L Chloride 105 Carbon Dioxide 31 Anion Gap 5 L BUN 2 L* Creatinine 0.5 L Creat Clearance w eGFR > 60 Random Glucose 101 Calcium 8.0 L Magnesium 1.9 Total Bilirubin 0.4 Direct Bilirubin 0.2 AST 27 ALT 37 Alkaline Phosphatase 64 Total Protein 5.7 L Albumin 3.0 L Active Medications Generic Name Dose Route Start Last Admin Trade Name Freq PRN Reason Stop Dose Admin Acetaminophen 650 mg 02/28/18 18:44 Tylenol - PO Q4H PRN FEVER Enoxaparin Sodium 40 mg 03/01/18 10:00 03/02/18 10:29 Lovenox - SQ 40 mg DAILY ERVIN Administration Piperacillin Sod/Tazobactam 50 mls @ 100 mls/hr 03/02/18 13:45 03/03/18 02:54 Sod 3.375 gm/ Dextrose IVPB 100 mls/hr Q8H-IV ERVIN Administration Protocol Potassium Chloride/Dextrose/Sod Cl 20 meq in 1,000 mls @ 100 mls/hr 03/02/18 13:45 03/03/18 02:56 D5-1/2ns+20 Meq Kcl - IV 100 mls/hr ASDIR ERVIN Administration Potassium Chloride 10 meq in 100 mls @ 100 mls/hr 03/03/18 09:15 Potassium Chloride 10 Meq Premix Ivpb - IVPB 03/03/18 11:14 Q60M ERVIN Morphine Sulfate 4 mg 02/28/18 18:44 03/02/18 19:09 Morphine Sulfate IVPB 4 mg Q3H PRN Administration PAIN LEVEL 7 - 10 Oxycodone HCl 7.5 mg 02/28/18 18:44 03/01/18 00:47 Roxicodone - PO 7.5 mg Q4H PRN Administration PAIN LEVEL 4 - 6 Pantoprazole Sodium 40 mg 03/01/18 10:00 03/02/18 10:28 Protonix Iv IVPUSH 40 mg DAILY ERVIN Administration ASSESSMENT/PLAN: Patient is a 27 year old female with a past medical history of pre-eclampisa. She presents to the ED on 02/23/18 for RUQ pain with vomiting. Abdominal US showed multiple gallstones and a dilated CBD. She is now POD#3 cholecystectomy and choledochojejunostomy. imaging: ERCP 02/26/18; residual stone fragments were extracted from the CBD POD #3 cholecystectomy and choledochojejunostomy. Started on clears by GI Post op care initiated: bowel regimen incentive spirometer continue ambulation Lovenox Monitor drainage output On Zosyn iv Hypokalemia supplemented, follow CMP fen clears d5 1/2 NS KCL 20 meq@ 100 cc/hr. will stop ivf once tolerating diet protonix iv Prophylaxis SCDs, Lovenox Protonix 40 mg IVP qday Visit type - Emergency Visit Emergency Visit: Yes ED Registration Date: 02/23/18 Care time: The patient presented to the Emergency Department on the above date and was hospitalized for further evaluation of their emergent condition. - New Patient This patient is new to me today: Yes Date on this admission: 03/03/18 - Critical Care Critical Care patient: No - Discharge Referral Referred to [facility] Med P.C.: No
[2018-03-03] MEDS ORDERED: PT OWN MED DRAWER 7, Y5N ONE (10:11)
[2018-03-03] MEDS: PANTOPRAZOLE SODIUM 40 MG VIAL IVPUSH SCH (10:36)
[2018-03-03] MEDS: KCL 10 MEQ IVPB 10 MEQ/100 ML INFUS.BAG IVPB SCH ×2 (10:38→14:00)
[2018-03-03] MEDS: ENOXAPARIN NA (PORCINE) 40 MG/0.4 ML DISP.SYRIN SQ SCH (10:38)
--- NOTE | 2018-03-03 11:20 | PN ---
Progress Note (short form) - Note Progress Note: surgery pt seen and examined. sitting in chair by window. no pain. ambulating several times per day. Denies flatus or bm but feels flatus is about to occur. afebrile abd- soft, nt, nt, bile drain 20 ml light bile, sanna sero-sanguinous Laboratory Tests 02/25/18 03/03/18 13:15 06:00 WBC 4.5 Potassium 2.9 L* A/P 1) pod#3- s/p cholecystectomy and blair-n-y choledochojejunostomy. clear liquids, stop ivf if tolerates,cont sanna, bile duct stent to drainage bag 2) choledocholithiasis, bile contamination at surgery- abx per id. can likely stop. 3) prophylaxis- lovenox, protonix, oob, spirometer 4) expected post op ileus- improving. will start clears. 5) hypokalemia- will replace again
[2018-03-03] MEDS: POTASSIUM CHLORIDE TABS 20 MEQ TABLET.ER (FP) PO SCH ×2 (14:00→16:34)
--- NOTE | 2018-03-03 14:16 | PN ---
Progress Note, Physician History of Present Illness: stable abd pain - Current Medication List Current Medications: Active Medications Acetaminophen (Tylenol -) 650 mg PO Q4H PRN PRN Reason: FEVER Enoxaparin Sodium (Lovenox -) 40 mg SQ DAILY [facility] Last Admin: 03/03/18 10:38 Dose: 40 mg Piperacillin Sod/Tazobactam (Sod 3.375 gm/ Dextrose) 50 mls @ 100 mls/hr IVPB Q8H-IV ERVIN; Protocol Last Admin: 03/03/18 10:39 Dose: 100 mls/hr Potassium Chloride/Dextrose/Sod Cl (D5-1/2ns+20 Meq Kcl -) 20 meq in 1,000 mls @ 100 mls/hr IV ASDIR ERVIN Last Admin: 03/03/18 02:56 Dose: 100 mls/hr Morphine Sulfate (Morphine Sulfate) 4 mg IVPB Q3H PRN PRN Reason: PAIN LEVEL 7 - 10 Last Admin: 03/02/18 19:09 Dose: 4 mg Oxycodone HCl (Roxicodone -) 7.5 mg PO Q4H PRN PRN Reason: PAIN LEVEL 4 - 6 Last Admin: 03/01/18 00:47 Dose: 7.5 mg Pantoprazole Sodium (Protonix Iv) 40 mg IVPUSH DAILY [facility] Last Admin: 03/03/18 10:36 Dose: 40 mg Potassium Chloride (K-Dur -) 40 meq PO Q4H [facility] Stop: 03/03/18 15:31 Last Admin: 03/03/18 14:00 Dose: 40 meq - Objective Vital Signs: Vital Signs Temperature 98.7 F 03/03/18 06:00 Pulse Rate 66 03/03/18 06:00 Respiratory Rate 20 03/03/18 06:00 Blood Pressure 105/65 03/03/18 06:00 O2 Sat by Pulse Oximetry (%) 98 03/02/18 20:55 Constitutional: Yes: No Distress, Calm Cardiovascular: Yes: Regular Rate and Rhythm Respiratory: Yes: Regular, CTA Bilaterally Gastrointestinal: Yes: Soft, Hypoactive Bowel Sounds Musculoskeletal: Yes: WNL Extremities: Yes: WNL Wound/Incision: Yes: Other (sanna drain in place) Neurological: Yes: Alert, Oriented Psychiatric: Yes: Alert, Oriented Labs: CBC, BMP 03/03/18 06:00 03/03/18 06:00 INR, PTT INR 1.23 (0.83-1.09) H 02/24/18 06:00 Assessment/Plan Problem List - Problems (1) Acute gallstone pancreatitis Code(s): K85.10 - BILIARY ACUTE PANCREATITIS WITHOUT NECROSIS OR INFECTION 2 electrolyte imbalance Assessment/Plan continue abx hydration close watch monitor drainage
[2018-03-03] MEDS: oxyCODONE HCL 5 MG TABLET PO PRN (22:24)
[2018-03-04] MEDS ORDERED: PIPERACILLIN/TAZOBACTAM 3.375 GM VIAL IVPB ONE ×3 (02:20→17:08)
[2018-03-04] MEDS ORDERED: DEXTROSE 5%-WATER - 50 ML IVPB ONE ×2 (02:20→09:47)
[2018-03-04] MEDS: PIPERACILLIN/TAZOB 3.375 GM 3.375 GM in DEXTROSE 5%-WATER - 50 ML IVPB SCH ×3 (02:21→17:11)
[2018-03-04] MEDS: oxyCODONE HCL 5 MG TABLET PO PRN (05:56)
[2018-03-04 07:38] LABS: BASO % 0.4 % (0-2.0); EOS % 5.3 % (0-4.5); HEMATOCRIT 27.1 % (32.4-45.2); HEMOGLOBIN 9.7 GM/dL (10.7-15.3); LYMPH % 24.8 % (8-40); MCH 32.6 pg (25.7-33.7); MCHC 35.7 g/dl (32.0-36.0); MEAN CELL VOLUME 91.3 fl (80-96); MEAN PLT VOLUME 7.9 fl (7.5-11.1); MONO % 8.7 % (3.8-10.2); NEUT % 60.8 % (42.8-82.8); PLATELET COUNT 193 K/MM3 (134-434); RBC 2.97 M/mm3 (3.60-5.2)
[2018-03-04 09:06] LABS: ALK PHOS 62 U/L (45-117); ANION GAP 6 MMOL/L (8-16); BILIRUBIN,TOTAL 0.4 mg/dL (0.2-1); CALCIUM 7.9 mg/dL (8.5-10.1); CHLORIDE 108 mmol/L (98-107); CO2 27 mmol/L (21-32); CREATININE 0.5 mg/dL (0.55-1.3); GLUCOSE,RANDOM 94 mg/dL (74-106); MAGNESIUM 1.9 mg/dL (1.8-2.4); POTASSIUM 3.6 mmol/L (3.5-5.1); SGOT/AST 22 U/L (15-37); SGPT/ALT 41 U/L (13-61); SODIUM 141 mmol/L (136-145); TOT PROT 5.8 g/dl (6.4-8.2)
[2018-03-04] MEDS ORDERED: D5-1/2NS+20 MEQ KCL - 20 MEQ/1,000 ML INFUS.BAG IV SCH (09:09)
[2018-03-04 09:41] LABS: BLOOD UREA NITROGEN 2 mg/dL (7-18)
[2018-03-04] MEDS: PANTOPRAZOLE SODIUM 40 MG VIAL IVPUSH SCH (09:52)
[2018-03-04] MEDS: ENOXAPARIN NA (PORCINE) 40 MG/0.4 ML DISP.SYRIN SQ SCH (09:52)
--- NOTE | 2018-03-04 13:25 | PN ---
Progress Note, Physician History of Present Illness: doing well tolerating liquids - Current Medication List Current Medications: Active Medications Acetaminophen (Tylenol -) 650 mg PO Q4H PRN PRN Reason: FEVER Enoxaparin Sodium (Lovenox -) 40 mg SQ DAILY [facility] Last Admin: 03/04/18 09:52 Dose: 40 mg Piperacillin Sod/Tazobactam (Sod 3.375 gm/ Dextrose) 50 mls @ 100 mls/hr IVPB Q8H-IV ERVIN; Protocol Last Admin: 03/04/18 09:52 Dose: 100 mls/hr Potassium Chloride/Dextrose/Sod Cl (D5-1/2ns+20 Meq Kcl -) 20 meq in 1,000 mls @ 50 mls/hr IV ASDIR ERVIN Last Admin: 03/04/18 09:51 Dose: 50 mls/hr Morphine Sulfate (Morphine Sulfate) 4 mg IVPB Q3H PRN PRN Reason: PAIN LEVEL 7 - 10 Last Admin: 03/02/18 19:09 Dose: 4 mg Oxycodone HCl (Roxicodone -) 7.5 mg PO Q4H PRN PRN Reason: PAIN LEVEL 4 - 6 Last Admin: 03/04/18 05:56 Dose: 7.5 mg Pantoprazole Sodium (Protonix Iv) 40 mg IVPUSH DAILY [facility] Last Admin: 03/04/18 09:52 Dose: 40 mg - Objective Vital Signs: Vital Signs Temperature 97.5 F L 03/04/18 09:00 Pulse Rate 72 03/04/18 09:00 Respiratory Rate 20 03/04/18 09:00 Blood Pressure 114/70 03/04/18 09:00 O2 Sat by Pulse Oximetry (%) 98 03/03/18 21:00 Constitutional: Yes: Calm, Mild Distress (back and abd pain) Cardiovascular: Yes: Regular Rate and Rhythm Respiratory: Yes: Regular, CTA Bilaterally Gastrointestinal: Yes: Other Musculoskeletal: Yes: WNL Extremities: Yes: WNL Wound/Incision: Yes: Other (sanna in place) Neurological: Yes: Alert, Oriented Psychiatric: Yes: Alert, Oriented Labs: CBC, BMP 03/04/18 07:15 03/04/18 06:00 INR, PTT INR 1.23 (0.83-1.09) H 02/24/18 06:00 Assessment/Plan Problem List - Problems (1) Acute gallstone pancreatitis Code(s): K85.10 - BILIARY ACUTE PANCREATITIS WITHOUT NECROSIS OR INFECTION 2 electrolyte imbalance Assessment/Plan continue abx will stop abx tomorrow hydration close watch monitor drainage
--- NOTE | 2018-03-04 13:29 | PN ---
Physical Exam: SUBJECTIVE: Patient seen and examined at the bedside. Feels well, tolerating clear liquid diet. no bm yet, but passing gas. mild pain by incision site that is relieved with oxycodone. OBJECTIVE: tolerating diet, pain controlled. ambulating. Vital Signs Period Temp Pulse Resp BP Sys/Boykin Pulse Ox Last 24 Hr 97.5 F-98.3 F 63-76 17-20 106-114/65-75 98 GENERAL: The patient is awake, alert, and fully oriented, in no acute distress. HEAD: Normal with no signs of trauma. EYES: PERRL, extraocular movements intact, sclera anicteric, conjunctiva clear. No ptosis. ENT: Ears normal, nares patent, oropharynx clear without exudates, moist mucous membranes. NECK: Trachea midline, full range of motion, supple. LUNGS: Breath sounds equal, clear to auscultation bilaterally HEART: Regular rate and rhythm ABDOMEN: Soft, mildly tender, mildly distended, bili drain with scant amt of drainage, sanna drain with <20cc of sero sang drainage. EXTREMITIES: no edema. NEUROLOGICAL: Normal speech, gait not observed. PSYCH: Normal mood, normal affect. SKIN: Warm, dry, normal turgor, no rashes or lesions noted Laboratory Results - last 24 hr 03/04/18 03/04/18 06:00 07:15 WBC 3.0 L RBC 2.97 L Hgb 9.7 L Hct 27.1 L MCV 91.3 MCH 32.6 MCHC 35.7 RDW 14.0 Plt Count 193 D MPV 7.9 Absolute Neuts (auto) 1.8 Neutrophils % 60.8 Lymphocytes % 24.8 D Monocytes % 8.7 Eosinophils % 5.3 H D Basophils % 0.4 Nucleated RBC % 0 Sodium 141 Potassium 3.6 Chloride 108 H Carbon Dioxide 27 Anion Gap 6 L BUN 2 L* Creatinine 0.5 L Creat Clearance w eGFR > 60 Random Glucose 94 Calcium 7.9 L Magnesium 1.9 Total Bilirubin 0.4 AST 22 ALT 41 Alkaline Phosphatase 62 Total Protein 5.8 L Albumin 3.0 L Active Medications Generic Name Dose Route Start Last Admin Trade Name Freq PRN Reason Stop Dose Admin Acetaminophen 650 mg 02/28/18 18:44 Tylenol - PO Q4H PRN FEVER Enoxaparin Sodium 40 mg 03/01/18 10:00 03/04/18 09:52 Lovenox - SQ 40 mg DAILY ERVIN Administration Piperacillin Sod/Tazobactam 50 mls @ 100 mls/hr 03/02/18 13:45 03/04/18 09:52 Sod 3.375 gm/ Dextrose IVPB 100 mls/hr Q8H-IV ERVIN Administration Protocol Potassium Chloride/Dextrose/Sod Cl 20 meq in 1,000 mls @ 50 mls/hr 03/04/18 09 :09 03/04/18 09:51 D5-1/2ns+20 Meq Kcl - IV 50 mls/hr ASDIR ERVIN Administration Morphine Sulfate 4 mg 02/28/18 18:44 03/02/18 19:09 Morphine Sulfate IVPB 4 mg Q3H PRN Administration PAIN LEVEL 7 - 10 Oxycodone HCl 7.5 mg 02/28/18 18:44 03/04/18 05:56 Roxicodone - PO 7.5 mg Q4H PRN Administration PAIN LEVEL 4 - 6 Pantoprazole Sodium 40 mg 03/01/18 10:00 03/04/18 09:52 Protonix Iv IVPUSH 40 mg DAILY ERVIN Administration ASSESSMENT/PLAN: Patient is a 27 year old female with a past medical history of pre-eclampisa. She presents to the ED on 02/23/18 for RUQ pain with vomiting. Abdominal US showed multiple gallstones and a dilated CBD. She is now POD#4 cholecystectomy and choledochojejunostomy. imaging: ERCP 02/26/18; residual stone fragments were extracted from the CBD POD #3 cholecystectomy and choledochojejunostomy. Started on clears by GI Post op care initiated: bowel regimen incentive spirometer continue ambulation Lovenox Monitor drainage output On Zosyn iv Hypokalemia supplemented, follow CMP fen clears d5 1/2 NS KCL 20 meq@ 100 cc/hr. will stop ivf protonix iv Prophylaxis SCDs, Lovenox Protonix 40 mg IVP qday Visit type - Emergency Visit Emergency Visit: Yes ED Registration Date: 02/23/18 Care time: The patient presented to the Emergency Department on the above date and was hospitalized for further evaluation of their emergent condition. - New Patient This patient is new to me today: No - Critical Care Critical Care patient: No - Discharge Referral Referred to [facility] Med P.C.: No
--- NOTE | 2018-03-04 14:23 | PN ---
Progress Note (short form) - Note Progress Note: surgery pt seen and examined. had some slight back pain. tolerating clear liquids. some flatus. no bm afebrile abd- soft, nt, nt, bile drain 20 ml light bile(2 days ago revised up to 70) , sanna sero-sanguinous Laboratory Tests 03/04/18 03/04/18 06:00 07:15 WBC 3.0 L Potassium 3.6 Total Bilirubin 0.4 AST 22 ALT 41 Alkaline Phosphatase 62 A/P 1) pod#4- s/p cholecystectomy and blair-n-y choledochojejunostomy. full liquisd , off ivf, cont sanna, bile duct stent to drainage bag 2) choledocholithiasis, bile contamination at surgery- abx per id. considering stopping abx 3) prophylaxis- lovenox, protonix, oob, spirometer 4) expected post op ileus- improving. will advance to full liquids 5) hypokalemia- resolved.
[2018-03-04] MEDS ORDERED: POTASSIUM CHLORIDE TABS 20 MEQ TABLET.ER (FP) PO ONE (14:24)
[2018-03-05] MEDS ORDERED: PIPERACILLIN/TAZOBACTAM 3.375 GM VIAL IVPB ONE ×2 (00:14→08:52)
[2018-03-05] MEDS ORDERED: DEXTROSE 5%-WATER - 50 ML IVPB ONE ×2 (00:14→08:52)
[2018-03-05] MEDS: PIPERACILLIN/TAZOB 3.375 GM 3.375 GM in DEXTROSE 5%-WATER - 50 ML IVPB SCH ×2 (02:37→08:59)
[2018-03-05 08:15] LABS: BASO % 0.4 % (0-2.0); HEMOGLOBIN 10.6 GM/dL (10.7-15.3); LYMPH % 20.1 % (8-40); MCH 32.1 pg (25.7-33.7); MCHC 35.2 g/dl (32.0-36.0); MEAN CELL VOLUME 91.1 fl (80-96); MEAN PLT VOLUME 7.7 fl (7.5-11.1); MONO % 7.2 % (3.8-10.2); NEUT % 67.3 % (42.8-82.8); PLATELET COUNT 238 K/MM3 (134-434); WHITE BLOOD COUNT 3.6 K/mm3 (4.0-10.0)
[2018-03-05 08:43] LABS: ALBUMIN 3.3 g/dl (3.4-5.0); ALK PHOS 69 U/L (45-117); ANION GAP 6 MMOL/L (8-16); BILIRUBIN,TOTAL 0.4 mg/dL (0.2-1); BLOOD UREA NITROGEN 4 mg/dL (7-18); CALCIUM 8.4 mg/dL (8.5-10.1); CHLORIDE 105 mmol/L (98-107); CO2 29 mmol/L (21-32); CREATININE 0.5 mg/dL (0.55-1.3); GLUCOSE,RANDOM 89 mg/dL (74-106); POTASSIUM 3.8 mmol/L (3.5-5.1); SGOT/AST 36 U/L (15-37); SGPT/ALT 64 U/L (13-61); SODIUM 140 mmol/L (136-145); TOT PROT 6.3 g/dl (6.4-8.2)
[2018-03-05] MEDS: ENOXAPARIN NA (PORCINE) 40 MG/0.4 ML DISP.SYRIN SQ SCH (08:59)
[2018-03-05] MEDS ORDERED: PANTOPRAZOLE 40 MG TABLET (FP) PO SCH (10:00)
--- NOTE | 2018-03-05 11:49 | PN ---
Progress Note, Physician History of Present Illness: doing well had a bowel movement drainage tube in in place choley tube in place draining bile - Current Medication List Current Medications: Active Medications Acetaminophen (Tylenol -) 650 mg PO Q4H PRN PRN Reason: FEVER Enoxaparin Sodium (Lovenox -) 40 mg SQ DAILY [facility] Last Admin: 03/05/18 08:59 Dose: 40 mg Morphine Sulfate (Morphine Sulfate) 4 mg IVPB Q3H PRN PRN Reason: PAIN LEVEL 7 - 10 Last Admin: 03/02/18 19:09 Dose: 4 mg Oxycodone HCl (Roxicodone -) 7.5 mg PO Q4H PRN PRN Reason: PAIN LEVEL 4 - 6 Last Admin: 03/04/18 05:56 Dose: 7.5 mg Pantoprazole Sodium (Protonix -) 40 mg PO DAILY [facility] Last Admin: 03/05/18 08:59 Dose: 40 mg - Objective Vital Signs: Vital Signs Temperature 98.3 F 03/05/18 06:37 Pulse Rate 74 03/05/18 06:37 Respiratory Rate 19 03/05/18 06:37 Blood Pressure 111/63 03/05/18 06:37 O2 Sat by Pulse Oximetry (%) 99 03/04/18 21:00 Constitutional: Yes: No Distress, Calm Cardiovascular: Yes: Regular Rate and Rhythm Respiratory: Yes: Regular, CTA Bilaterally Gastrointestinal: Yes: Normal Bowel Sounds, Soft, Other (patient has choley tube in place and drainage in place) Musculoskeletal: Yes: WNL Extremities: Yes: WNL Wound/Incision: Yes: Clean/Dry Neurological: Yes: Alert, Oriented Labs: CBC, BMP 03/05/18 07:57 03/05/18 07:57 INR, PTT INR 1.23 (0.83-1.09) H 02/24/18 06:00 Assessment/Plan Problem List - Problems (1) Acute gallstone pancreatitis Code(s): K85.10 - BILIARY ACUTE PANCREATITIS WITHOUT NECROSIS OR INFECTION 2 electrolyte imbalance patient with choledocho jejunostomy Assessment/Plan stopped abx wound care drainage and choleytube care monitor closely rest as per the team
[2018-03-05 12:27] VITALS: PULSE 71
--- NOTE | 2018-03-05 13:40 | PN ---
Physical Exam: SUBJECTIVE: Patient seen and examined at the bedside. at the bedside. Patient feels well, in no acute distress. no abdominal pain. no nausea or vomiting. tolerating advanced diet. OBJECTIVE: tube to be clamped per surgery sanna drain with scant amt of drain bili drain with scan amt of drain Vital Signs Period Temp Pulse Resp BP Sys/Boykin Pulse Ox Last 24 Hr 97.5 F-98.8 F 61-74 16-19 102-112/60-65 97-99 GENERAL: The patient is awake, alert, and fully oriented, in no acute distress. HEAD: Normal with no signs of trauma. EYES: PERRL, extraocular movements intact, sclera anicteric, conjunctiva clear. No ptosis. ENT: Ears normal, nares patent, oropharynx clear without exudates, moist mucous membranes. NECK: Trachea midline, full range of motion, supple. LUNGS: Breath sounds equal, clear to auscultation bilaterally HEART: Regular rate and rhythm ABDOMEN: Soft, mildly tender, mildly distended, bili drain with scant amt of drainage, sanna drain with <20cc of sero sang drainage. EXTREMITIES: no edema. NEUROLOGICAL: Normal speech, gait not observed. PSYCH: Normal mood, normal affect. SKIN: Warm, dry, normal turgor, no rashes or lesions noted Laboratory Results - last 24 hr 03/05/18 03/05/18 07:57 07:57 WBC 3.6 L RBC 3.30 L Hgb 10.6 L Hct 30.0 L MCV 91.1 MCH 32.1 MCHC 35.2 RDW 14.0 Plt Count 238 D MPV 7.7 Absolute Neuts (auto) 2.4 Neutrophils % 67.3 Lymphocytes % 20.1 Monocytes % 7.2 Eosinophils % 5.0 H Basophils % 0.4 Nucleated RBC % 0 Sodium 140 Potassium 3.8 Chloride 105 Carbon Dioxide 29 Anion Gap 6 L BUN 4 L Creatinine 0.5 L Creat Clearance w eGFR > 60 Random Glucose 89 Calcium 8.4 L Magnesium 2.0 Total Bilirubin 0.4 AST 36 ALT 64 H Alkaline Phosphatase 69 Total Protein 6.3 L Albumin 3.3 L Active Medications Generic Name Dose Route Start Last Admin Trade Name Freq PRN Reason Stop Dose Admin Acetaminophen 650 mg 02/28/18 18:44 Tylenol - PO Q4H PRN FEVER Enoxaparin Sodium 40 mg 03/01/18 10:00 03/05/18 08:59 Lovenox - SQ 40 mg DAILY ERVIN Administration Morphine Sulfate 4 mg 02/28/18 18:44 03/02/18 19:09 Morphine Sulfate IVPB 4 mg Q3H PRN Administration PAIN LEVEL 7 - 10 Oxycodone HCl 7.5 mg 02/28/18 18:44 03/04/18 05:56 Roxicodone - PO 7.5 mg Q4H PRN Administration PAIN LEVEL 4 - 6 Pantoprazole Sodium 40 mg 03/05/18 10:00 03/05/18 08:59 Protonix - PO 40 mg DAILY ERVIN Administration ASSESSMENT/PLAN: Patient is a 27 year old female with a past medical history of pre-eclampisa. She presents to the ED on 02/23/18 for RUQ pain with vomiting. Abdominal US showed multiple gallstones and a dilated CBD. She is now POD#5 cholecystectomy and blair-n-y choledochojejunostomy imaging: ERCP 02/26/18; residual stone fragments were extracted from the CBD POD #5 cholecystectomy and nd blair-n-y choledochojejunostomy patient reports tolerating a regular diet. denies pain. has had no pain meds x 24 hours Post op care initiated: -bowel regimen -incentive spirometer -continue ambulation -Lovenox -Monitor drainage output -antibiotics discontinued by ID Hypokalemia. resolved fen regular ivf stopped, tolerating PO hydration and regular diet protonix po Prophylaxis SCDs, Lovenox Protonix 40 mg Visit type - Emergency Visit Emergency Visit: Yes ED Registration Date: 02/23/18 Care time: The patient presented to the Emergency Department on the above date and was hospitalized for further evaluation of their emergent condition. - New Patient This patient is new to me today: No - Critical Care Critical Care patient: No - Discharge Referral Referred to [id number] Med P.C.: No
[2018-03-05 14:24] VITALS: BP 105/66; TEMP 98.6
--- NOTE | 2018-03-05 15:04 | PN ---
Progress Note (short form) - Note Progress Note: surgery pt tolerating regular diet with bile tube clamped. no pain. positive bm. Abx stopped. Plan- surgically stable for d/c. suggest repeat lfts tomorrow with f/u with me this 03/07/18. (office closed most of next week) ok to shower. no lifting.
--- NOTE | 2018-03-05 16:51 | DS ---
Physical Exam: SUBJECTIVE: Patient seen and examined at the bedside. explained that she has to come in tomorrow to [facility] for lab draws. A lab requisition has been given to her OBJECTIVE: lab draws to be done here at [facility]. patient to follow up with Dr. Celestin on . Vital Signs Period Temp Pulse Resp BP Sys/Boykin Pulse Ox Last 24 Hr 97.5 F-98.8 F 61-74 16-19 102-112/60-66 97-99 PHYSICAL EXAM GENERAL: The patient is awake, alert, and fully oriented, in no acute distress. HEAD: Normal with no signs of trauma. EYES: PERRL, extraocular movements intact, sclera anicteric, conjunctiva clear. No ptosis. ENT: Ears normal, nares patent, oropharynx clear without exudates, moist mucous membranes. NECK: Trachea midline, full range of motion, supple. LUNGS: Breath sounds equal, clear to auscultation bilaterally HEART: Regular rate and rhythm ABDOMEN: Soft, mildly tender, mildly distended, bili drain with scant amt of drainage, sanna drain with sero sang drainage. EXTREMITIES: no edema. NEUROLOGICAL: Normal speech, gait not observed. PSYCH: Normal mood, normal affect. SKIN: Warm, dry, normal turgor, no rashes or lesions noted LABS Laboratory Results - last 24 hr 03/05/18 03/05/18 07:57 07:57 WBC 3.6 L RBC 3.30 L Hgb 10.6 L Hct 30.0 L MCV 91.1 MCH 32.1 MCHC 35.2 RDW 14.0 Plt Count 238 D MPV 7.7 Absolute Neuts (auto) 2.4 Neutrophils % 67.3 Lymphocytes % 20.1 Monocytes % 7.2 Eosinophils % 5.0 H Basophils % 0.4 Nucleated RBC % 0 Sodium 140 Potassium 3.8 Chloride 105 Carbon Dioxide 29 Anion Gap 6 L BUN 4 L Creatinine 0.5 L Creat Clearance w eGFR > 60 Random Glucose 89 Calcium 8.4 L Magnesium 2.0 Total Bilirubin 0.4 AST 36 ALT 64 H Alkaline Phosphatase 69 Total Protein 6.3 L Albumin 3.3 L HOSPITAL COURSE: Patient is a 27 year old female with a past medical history of pre-eclampisa. She presents to the ED on 02/23/18 for RUQ pain with vomiting. Abdominal US showed multiple gallstones and a dilated CBD. She is now POD#5 cholecystectomy and blair-n-y choledochojejunostomy imaging: ERCP 02/26/18; residual stone fragments were extracted from the CBD Surgery: POD #5 cholecystectomy and nd blair-n-y choledochojejunostomy patient reports tolerating a regular diet. denies abdominal pain. has had no pain meds x 24 hours. will send home on Tylenol 650mg prn. Patient to continue Protonix 40mg daily. Patient to has lab requisition for cmp, ast/alt labs on 03/06/2018 at [facility]. Patient to follow up with Dr. Celestin on 03/07/2018 for continuation of post op care. Antibiotics discontinued by ID. Patient seen ambulating the hallways on [address], denies pain. denies shortness of breath. patient is stable for discharge home. Hypokalemia. resolved Date of Admission:02/23/18 Date of Discharge: 03/05/18 Minutes to complete discharge: 60 Discharge Summary Reason For Visit: ACUTE GALLSTONE PANCREATITITS Current Active Problems Acute gallstone pancreatitis (Acute) Pancreatitis (Acute) Condition: Fair - Instructions Diet, Activity, Other Instructions: Mrs Ordonez: You had surgery on 02/28/[address] Celestin. Here are our recommendations. Regular diet. ok to shower. keep bile drain covered when not in the shower. wear binder when possible. No lifting. Repeat Liver tests tomorrow and follow with Dr. Celestin this Wed 03/07. No need to record SANNA drain output, just empty when full. Jhsugey Ordonez: Usted tenia cirgugia con el Doctor Fawad en 02/29/2108. Usted tiene rich bryson con el 03/07/2018. Por favor de regresar a [facility] 03/06/2018 en la manana para analysis de power. Tiene rich bryson con el Doctor Fawad en 03/07/2018. Puede segir rich dieta regular. Por favor de no mojar la desague. Puede comer rich dieta regular. No levantar objectos pesados. Si usted tiene dolar, puede girish Tylenol 650mg cada 6 horas. Referrals: Zeferino Linares MD [Staff Physician] - Mika Lemos MD [Staff Physician] - Luis Kay MD [Staff Physician] - Allan Celestin MD [Staff Physician] - ( 03/07/18) Disposition: HOME - Home Medications Comprehensive Discharge Medication List: Ambulatory Orders Vit No.130/Iron/Folic [ Tablet] 1 each PO DAILY 10/07/16 Acetaminophen [Tylenol .Regular Strength -] 650 mg PO Q4H PRN tablet 03/05/18 Pantoprazole Sodium [Protonix -] 40 mg PO DAILY #30 tablet.ec 03/05/18 This patient is new to me today: No Emergency Visit: Yes ED Registration Date: 02/23/18 Care time: The patient presented to the Emergency Department on the above date and was hospitalized for further evaluation of their emergent condition. Critical Care patient: No - Discharge Referral Referred to [facility] Med P.C.: No
== END 2018-03-05 19:06 | disposition home or self-care (01) | DRG 261 ==
LOC: JER 07:51 → JERBED 13:39 → J7W 18:45 → J6S 02-28 21:11
PROVIDERS: ADMIT Internal Medicine; ATTEND Nurse Practitioner Family
PROC: 0FC98ZZ Extirpation of Matter from Common Bile Duct, Via Natural or Artificial Opening Endoscopic (ICD-10-PCS; 2018-02-26)
PROC: 0FT40ZZ Resection of Gallbladder, Open Approach (ICD-10-PCS; principal; 2018-03-01)
PROC: 0FJ44ZZ Inspection of Gallbladder, Percutaneous Endoscopic Approach (ICD-10-PCS; 2018-03-01)
PROC: 0F1 Hepatobiliary System and Pancreas, Bypass (ICD-10-PCS; 2018-03-01)
DX: K85.10 Biliary acute pancreatitis without necrosis or infection (principal); E87.8 Other disorders of electrolyte and fluid balance, not elsewhere classified; K80.50 Calculus of bile duct without cholangitis or cholecystitis without obstruction; E87.6 Hypokalemia; Z53.31 Laparoscopic surgical procedure converted to open procedure
CPT/HCPCS: 36415; 74018-TC-FY; 74181-TC; 76000-TC-FY; 76700-TC; 80048; 80053; 80076; 81003; 81015; 82150; 82248; 82962; 83690; 83735; 84100; 84132; 84703; 85025; 85027; 85610; 86140; 88304-TC; 94760; 99282-25; J0131; J7030; Q0162